=== PATIENT | female | born 1970 | race Caucasian/White ===

== ENCOUNTER → 2016-03-06 | Outpatient (CLI) | payer OTHER ==
--- NOTE | 2016-03-06 14:42 | P.PN ---
Progress Note - Text This is a 46-year-old female with cervical spondylosis and radiculopathy. The patient had cervical epidural steroid injection a few weeks ago which helped her numbness that she used to get in both hands and also helps decrease her pain however it caused headache for about 2 weeks after the procedure. The headache that she had did not have any relationship with the patient's position in the upright or lying position. The headache was like a tight sensation around her head as she states she also had soreness around the injection area for a few days. The patient right now is doing better. She seems fentanyl patch 100 g an hour every 72 hours from her family physician. She did have 14 surgeries on her lumbar spine previously. She is scheduled to have her second cervical epidural steroid injection in a few weeks and I asked her to hold her Motrin for 24 hours before the procedure. The patient does not show any drug- seeking behavior today and she denies any suicidal thoughts she also does not show any oversedation symptoms. The patient gets her opioids prescribed from her primary care physician.
[2016-03-06 14:48] VITALS: BP 140/95; PULSE 105; RESP 16; TEMP 99.1
== END | disposition home or self-care (01) ==
LOC: PNWHC3 13:40
PROVIDERS: ATTEND Anesthesiology
DX: M47.892 Other spondylosis, cervical region (principal); M54.12 Radiculopathy, cervical region; T81.89XA Other complications of procedures, not elsewhere classified, initial encounter; G44.89 Other headache syndrome
CPT/HCPCS: 99211

== ENCOUNTER 2016-03-15 08:26 | Day surgery (SDC) | payer OTHER ==
[2016-03-10 10:47] VITALS: BMI 25.8
[~2016-03-15 08:26] MED LIST: LACTATED RINGERS 1,000 ML IV SCH
[2016-03-15 08:59] VITALS: RESP 16; TEMP 98.5
[2016-03-15] MEDS ORDERED: LIDOCAINE 1% 20 ML VIAL (10MG/ML) FOR IV START INTRADERMA ONE (09:06)
[2016-03-15] MEDS ORDERED: fentaNYL (PF) 50 MCG/ML 2 ML AMP ONE (09:34)
[2016-03-15] MEDS ORDERED: IOHEXOL 180 MG/ML 1 ML ML ONE (09:34)
[2016-03-15] MEDS ORDERED: MIDAZOLAM 2 MG/2 ML VIAL ONE (09:34)
[2016-03-15] MEDS ORDERED: TRIAMCINOLONE ACETONIDE 40 MG/ML 1 ML VIAL ONE (09:34)
--- NOTE | 2016-03-15 09:53 | P.PCN ---
Date of Procedure: 03/15/16 Preoperative Diagnosis: Bilateral cervical radiculopathy Postoperative Diagnosis: Same as above Procedure(s) Performed: Cervical epidural steroid injection under fluoroscopic guidance Anesthesia: MAC Surgeon: Tiffany Zhao Pathology: none sent Condition: stable Disposition: PACU Description of Procedure: The patient was seen in preop holding area consent was obtained. She was brought into the procedure room and placed in prone position. Skin was prepped with Betadine 3 and draped in a sterile manner. Lidocaine 1% was used to numb the skin over the target point was at the C7-T1 level. I used 20-gauge 3-1/2 inch Touhy epidural needle with [id number] to air to identify the epidural space. There was positive [id number] to air at about 7 cm from skin and negative aspiration for any CSF or blood and negative paresthesia. I then injected 1 mL of Omnipaque which showed typical epidurogram on the AP view of fluoroscopy after that I injected 40 mg of Kenalog +4 MLS of preservative free normal saline to a total volume of 5 MLS in epidural space. Pt tolerated procedure well.
[2016-03-15] MEDS ORDERED: IV FLUID CONTINUATION 1,000 ML IV ONE (09:54)
--- NOTE | 2016-03-15 09:59 | FL ---
EXAMINATION TYPE: FL guided pain mgmt statistic DATE OF EXAM: 03/15/2016 9:52 AM HISTORY: Flouroscopy time 6 seconds of fluoroscopy provided. IMPRESSION: 1. Fluoroscopy time.
[2016-03-15 10:12] VITALS: BP 103/67; PULSE 81
== END 2016-03-15 10:51 | disposition home or self-care (01) ==
LOC: ORPAIN 08:26
PROVIDERS: ATTEND Anesthesiology
DX: M54.12 Radiculopathy, cervical region (principal); Z79.899 Other long term (current) drug therapy
CPT/HCPCS: 81025; 62321; J2250; J3301; Q9965; J3010

== ENCOUNTER 2016-03-24 15:29 | Emergency (ER) | payer OTHER ==
--- NOTE | 2016-03-24 15:58 | ED ---
Altered Mental Status HPI - General Chief Complaint: Weakness Stated Complaint: slurred speech/head pain Time Seen by Provider: 03/24/16 15:36 Source: patient Mode of arrival: wheelchair Limitations: no limitations - History of Present Illness Initial Comments: This patient is 46-year-old woman who presents with complaint that she has had some periods of trouble with speech. History is from both the patient and her mother who had observe episodes. They state that a couple times on Sunday and then again on Sunday night the patient had episodes in which she was having trouble with finding the proper words to express what she wanted to. Patient's mother states that the patient would start to describe something and then ended up talking about something else. The patient states she also had a feeling like someone had knocked on the left side of her skull. Patient is currently denying any pain. She states that she feels that her baseline now. She states that they had tried to arrange a point with her physician but was recommended to them that she be seen in the emergency department instead. Also on the review of systems, patient states she has had some intermittent hot and cold spells. She is denying other symptoms of infection. MD Complaint: altered mental status, confusion Onset/Timin -: days(s) Severity: moderate Consistency of Symptoms: waxing and waning Associated Symptoms: fever/chills - Related Data Home Medications Medication Instructions Recorded Confirmed Diazepam [Valium] 10 mg PO BID PRN 06/25/13 03/24/16 Digoxin [Lanoxin] 125 mcg PO DAILY 06/25/13 03/24/16 Furosemide [Lasix] 20 mg PO DAILY PRN 06/25/13 03/24/16 Gabapentin [Neurontin] 800 mg PO TID 06/25/13 03/24/16 Ibuprofen [Motrin] 800 mg PO Q8HR PRN 06/25/13 03/24/16 Lidocaine 5% Patch [Lidoderm 5% 1 patch TOPICAL DAILY PRN 06/25/13 03/24/16 Patch] Methocarbamol [Robaxin] 750 mg PO QID PRN 06/25/13 03/24/16 PARoxetine HCL [Paxil] 40 mg PO DAILY 06/25/13 03/24/16 SUMAtriptan SUCCINATE [Imitrex] 100 mg PO BID PRN 06/25/13 03/24/16 Hydrocodone/Acetaminophen 1 tab PO QID PRN 09/08/13 03/24/16 [Hydrocodone/Acetaminophen 10-325] fentaNYL [Duragesic] 100 mcg TOPICAL Q72H 09/08/13 03/24/16 Fluticasone Propionate [Flovent 220 mcg INHALATION RT-BID PRN 10/21/13 03/24/16 Hfa 110mcg] Famotidine [Pepcid] 20 mg PO BID PRN 07/06/15 03/24/16 Ferrous Sulfate [Feosol] 325 mg PO DAILY 07/06/15 03/24/16 Ipratropium-Albuterol Nebulize 3 ml INHALATION RT-QID PRN 07/06/15 03/24/16 [Duoneb 0.5 mg-3 mg/3 ml Soln] Zolpidem Tartrate [Ambien] 10 mg PO HS 07/06/15 03/24/16 Previous Rx's Medication Instructions Recorded Ondansetron Odt [Zofran ODT] 4 mg PO Q8HR PRN #15 tab 06/01/14 Amitriptyline HCl [Elavil] 25 mg PO HS #30 tablet 10/26/15 Baclofen [Lioresal] 10 mg PO QID #120 tab 10/26/15 Levofloxacin [Levaquin] 500 mg PO DAILY #7 tab 03/24/16 Allergies Allergy/AdvReac Type Severity Reaction Status Date / Time shellfish derived [Shellfish] Allergy Anaphylaxis Verified 03/24/16 16:05 Review of Systems ROS Statement: Those systems with pertinent positive or pertinent negative responses have been documented in the HPI. ROS Other: All systems not noted in ROS Statement are negative. Constitutional: Reports: as per HPI, fever, chills Eyes: Denies: eye pain, vision change ENT: Denies: throat pain, hearing loss Respiratory: Denies: cough, dyspnea Cardiovascular: Denies: chest pain, palpitations Gastrointestinal: Denies: abdominal pain, vomiting, diarrhea Genitourinary: Denies: dysuria, hematuria Musculoskeletal: Reports: back pain (Chronic back pain) Skin: Denies: rash Neurological: Reports: as per HPI, confusion. Denies: headache, weakness, numbness, paresthesias Past Medical History Past Medical History: Atrial Fibrillation, Chest Pain / Angina, Deep Vein Thrombosis (DVT), Osteoarthritis (OA), Respiratory Disorder, Supraventricular Tachycardia (SVT), Syncope Additional Past Medical History / Comment(s): chronic bronchitis. chronic back pain states all vertebrae are herniated, hx. kidney stones, permanent wheeze, born with heart defect History of Any Multi-Drug Resistant Organisms: None Reported Past Surgical History: Back Surgery, Cardiac Ablation, Cholecystectomy, Orthopedic Surgery Additional Past Surgical History / Comment(s): 14 back surgery's., geo knee arthroscopy Past Anesthesia/Blood Transfusion Reactions: No Reported Reaction Past Psychological History: Depression Smoking Status: Never smoker Past Alcohol Use History: None Reported Past Drug Use History: None Reported - Past Family History Mother Family Medical History: No Reported History Brother(s) Family Medical History: Cancer General Exam Limitations: no limitations General appearance: alert, in no apparent distress Head exam: Present: atraumatic, normocephalic Eye exam: Present: normal appearance. Absent: scleral icterus, conjunctival injection Pupils: Present: mydriatic ENT exam: Present: mucous membranes dry Neck exam: Present: normal inspection Respiratory exam: Present: normal lung sounds bilaterally. Absent: respiratory distress, wheezes, rales, rhonchi, stridor Cardiovascular Exam: Present: normal rhythm, tachycardia, normal heart sounds. Absent: systolic murmur, diastolic murmur, rubs, gallop GI/Abdominal exam: Present: soft. Absent: distended, tenderness, guarding, rebound, mass Extremities exam: Present: normal inspection, normal capillary refill. Absent: pedal edema, calf tenderness Back exam: Present: normal inspection. Absent: CVA tenderness (R), CVA tenderness (L) Neurological exam: Present: alert, oriented X3, CN II-XII intact, other ( Patient not giving reproducible effort on the neurologic exam but no obvious focal deficits.). Absent: motor sensory deficit Skin exam: Present: warm, dry, intact, normal color. Absent: rash Course Vital Signs 03/24/16 03/24/16 03/24/16 15:31 17:10 17:13 Temperature 100.9 F H 99.1 F Pulse Rate 108 H 78 Respiratory 18 18 Rate Blood Pressure 119/66 104/62 O2 Sat by Pulse 96 95 Oximetry Medical Decision Making - Lab Data Result diagrams: 03/24/16 16:14 03/24/16 16:14 Lab Results 03/24/16 03/24/16 03/24/16 Range/Units 16:14 16:14 16:14 WBC 11.0 H (3.8-10.6) k/uL RBC 3.27 L (3.80-5.40) m/uL Hgb 10.1 L (11.4-16.0) gm/dL Hct 31.5 L (34.0-46.0) % MCV 96.5 (80.0-100.0) fL MCH 31.1 (25.0-35.0) pg MCHC 32.2 (31.0-37.0) g/dL RDW 14.1 (11.5-15.5) % Plt Count 244 (150-450) k/uL Neutrophils % 80 % Lymphocytes % 7 % Monocytes % 9 % Eosinophils % 0 % Basophils % 0 % Neutrophils # 8.7 H (1.3-7.7) k/uL Lymphocytes # 0.8 L (1.0-4.8) k/uL Monocytes # 1.0 (0-1.0) k/uL Eosinophils # 0.0 (0-0.7) k/uL Basophils # 0.0 (0-0.2) k/uL Sodium 139 (137-145) mmol/L Potassium 3.6 (3.5-5.1) mmol/L Chloride 102 (98-107) mmol/L Carbon Dioxide 24 (22-30) mmol/L Anion Gap 13 mmol/L BUN 21 H (7-17) mg/dL Creatinine 0.92 (0.52-1.04) mg/dL Est GFR (MDRD) Af Amer >60 (>60 ml/min/1.73 sqM) Est GFR (MDRD) Non-Af >60 (>60 ml/min/1.73 sqM) Glucose 92 (74-99) mg/dL Plasma Lactic Acid Eduardo 0.9 (0.7-2.0) mmol/L Calcium 9.1 (8.4-10.2) mg/dL Total Bilirubin 0.6 (0.2-1.3) mg/dL AST 82 H (14-36) U/L ALT 60 H (9-52) U/L Alkaline Phosphatase 148 H (38-126) U/L Troponin I (0.000-0.034) ng/mL Total Protein 6.6 (6.3-8.2) g/dL Albumin 3.5 (3.5-5.0) g/dL Urine Color Urine Appearance (Clear) Urine pH (5.0-8.0) Ur Specific [place] (1.001-1.035) Urine Protein (Negative) Urine Glucose (UA) (Negative) Urine Ketones (Negative) Urine Blood (Negative) Urine Nitrate (Negative) Urine Bilirubin (Negative) Urine Urobilinogen (<2.0) mg/dL Ur Leukocyte Esterase (Negative) Urine RBC (0-5) /hpf Urine WBC (0-5) /hpf Urine WBC Clumps (None) /hpf Urine Bacteria (None) /hpf Influenza Type A RNA (Not Detectd) Influenza Type B (PCR) (Not Detectd) 03/24/16 03/24/16 03/24/16 Range/Units 16:14 16:14 17:41 WBC (3.8-10.6) k/uL RBC (3.80-5.40) m/uL Hgb (11.4-16.0) gm/dL Hct (34.0-46.0) % MCV (80.0-100.0) fL MCH (25.0-35.0) pg MCHC (31.0-37.0) g/dL RDW (11.5-15.5) % Plt Count (150-450) k/uL Neutrophils % % Lymphocytes % % Monocytes % % Eosinophils % % Basophils % % Neutrophils # (1.3-7.7) k/uL Lymphocytes # (1.0-4.8) k/uL Monocytes # (0-1.0) k/uL Eosinophils # (0-0.7) k/uL Basophils # (0-0.2) k/uL Sodium (137-145) mmol/L Potassium (3.5-5.1) mmol/L Chloride (98-107) mmol/L Carbon Dioxide (22-30) mmol/L Anion Gap mmol/L BUN (7-17) mg/dL Creatinine (0.52-1.04) mg/dL Est GFR (MDRD) Af Amer (>60 ml/min/1.73 sqM) Est GFR (MDRD) Non-Af (>60 ml/min/1.73 sqM) Glucose (74-99) mg/dL Plasma Lactic Acid Eduardo (0.7-2.0) mmol/L Calcium (8.4-10.2) mg/dL Total Bilirubin (0.2-1.3) mg/dL AST (14-36) U/L ALT (9-52) U/L Alkaline Phosphatase (38-126) U/L Troponin I <0.012 (0.000-0.034) ng/mL Total Protein (6.3-8.2) g/dL Albumin (3.5-5.0) g/dL Urine Color Yellow Urine Appearance Turbid H (Clear) Urine pH 6.0 (5.0-8.0) Ur Specific [place] 1.019 (1.001-1.035) Urine Protein 2+ H (Negative) Urine Glucose (UA) Negative (Negative) Urine Ketones Negative (Negative) Urine Blood Small H (Negative) Urine Nitrate Positive H (Negative) Urine Bilirubin Negative (Negative) Urine Urobilinogen 2.0 (<2.0) mg/dL Ur Leukocyte Esterase Large H (Negative) Urine RBC 42 H (0-5) /hpf Urine WBC >182 H (0-5) /hpf Urine WBC Clumps Many H (None) /hpf Urine Bacteria Many H (None) /hpf Influenza Type A RNA Not Detected (Not Detectd) Influenza Type B (PCR) Not Detected (Not Detectd) - EKG Data -: EKG Interpreted by [facility] EKG shows normal: sinus rhythm (Rate 81 bpm), axis (Normal), intervals (Normal) , QRS complexes (Normal) Rate: normal Interpretation: other (There are T inversions in leads V1 through 4. Ts inversions are present on the comparison from July 2014.) Disposition Clinical Impression: Urinary tract infection Disposition: HOME SELF-CARE Condition: Fair Instructions: Urinary Tract Infection in Women (ED) Prescriptions: Levofloxacin [Levaquin] 500 mg PO DAILY #7 tab Referrals: Andry Luna DO [Primary Care Provider] - 1-2 days
[2016-03-24 16:29] LABS: Basophils % (A) 0 %; CH 31.3; CHCM 32.6; Eosinophils % (A) 0 %; HCT 31.5 % (34.0-46.0); HDW 2.76; HGB 10.1 gm/dL (11.4-16.0); Luc # (Auto) 0.37; Luc % (Auto) 3; Lymphocytes # (A) 0.8 k/uL (1.0-4.8); Lymphocytes % (A) 7 %; MCH 31.1 pg (25.0-35.0); MCHC 32.2 g/dL (31.0-37.0); MCV 96.5 fL (80.0-100.0); Mean Platelet Volume 8.6; Monocytes % (A) 9 %; Neutrophils # (A) 8.7 k/uL (1.3-7.7); Neutrophils % (A) 80 %; RBC 3.27 m/uL (3.80-5.40); RDW 14.1 % (11.5-15.5); WBC (Perox) 11.12
[2016-03-24 16:42] LABS: ALT 60 U/L (9-52); AST 82 U/L (14-36); Alkaline Phosphatase 148 U/L (38-126); Anion Gap 13 mmol/L; Blood Urea Nitrogen 21 mg/dL (7-17); Calcium 9.1 mg/dL (8.4-10.2); Carbon Dioxide 24 mmol/L (22-30); Chloride 102 mmol/L (98-107); Glucose 92 mg/dL (74-99); Non-African American GFR(MDRD) >60 (>60 ml/min/1.73 sqM); Potassium 3.6 mmol/L (3.5-5.1); Sodium 139 mmol/L (137-145); Total Bilirubin 0.6 mg/dL (0.2-1.3); Total Protein 6.6 g/dL (6.3-8.2)
--- NOTE | 2016-03-24 16:47 | CT ---
EXAMINATION TYPE: CT brain wo con DATE OF EXAM: 03/24/2016 4:40 PM COMPARISON: Previous dated 03 April 2013 HISTORY: Slurred speech and weakness today. CT DLP: 930.2 mGycm Automated exposure control for dose reduction was used. FINDINGS: There is no acute intracranial hemorrhage, mass effect, or midline shift identified. The ventricles and sulci are within normal limits in size. The globes are intact and the visualized sinuses are joya ar. IMPRESSION: No acute intracranial hemorrhage, mass effect, or midline shift is seen.
--- NOTE | 2016-03-24 16:52 | XR ---
EXAMINATION TYPE: XR chest 1V portable DATE OF EXAM: 03/24/2016 4:46 PM COMPARISON: Prior chest x-ray 28 November 2014 HISTORY: Fever, slurred speech, dizziness TECHNIQUE: Single frontal view of the chest is obtained. FINDINGS: There is no focal air space opacity, pleural effusion, or pneumothorax seen. The cardiac silhouette size is within normal limits. There are overlying cardiac leads. The osseous structures a re intact. IMPRESSION: No acute process.
[2016-03-24] MEDS ORDERED: SODIUM CHLORIDE 0.9% 500 ML IV STA (17:21)
[2016-03-24 17:57] LABS: Appearance,Urine Turbid (Clear); Bacteria,Urine Many /hpf; Bilirubin,Urine Negative (Negative); Glucose,Urine (UA) Negative (Negative); Ketones,Urine Negative (Negative); Leukocyte Esterase,Urine Large (Negative); Nitrite,Urine Positive (Negative); Particle Count 43043; Protein,Urine 2+ (Negative); RBC,Urine 42 /hpf (0-5); Specific Gravity,Urine 1.019 (1.001-1.035); UA Billing (MACRO vs. MICRO) MICRO; WBC,Urine >182 /hpf (0-5)
[2016-03-24] MEDS ORDERED: LEVOFLOXACIN 750MG-D5W PMX 750 MG in DEXTROSE/WATER 1 150ML.BAG IVPB STA (18:02)
[2016-03-24 18:49] VITALS: PULSE 82; RESP 16
[2016-03-24 19:43] VITALS: BP 115/70; TEMP 97.9
== END 2016-03-24 19:46 | disposition home or self-care (01) ==
LOC: EC 15:29
DX: N39.0 Urinary tract infection, site not specified (principal); R41.82 Altered mental status, unspecified; Z91.013 Allergy to seafood; Z79.899 Other long term (current) drug therapy; Z79.51 Long term (current) use of inhaled steroids; Z79.891 Long term (current) use of opiate analgesic
CPT/HCPCS: 36415; 93005; 80053; 83605; 84484; 85025; 81001; 87086; 87077; 87186; 87502; 71010; 70450; 96365; 99285; J1956

== ENCOUNTER → 2016-04-12 | Outpatient (CLI) | payer OTHER ==
[2016-04-12 12:57] VITALS: BP 118/79; PULSE 112; RESP 16; TEMP 99.1
--- NOTE | 2016-04-12 13:19 | P.PN ---
Progress Note - Text Patient returns for followup for chronic neck and back pain with radiation to arms and legs respectively. Patient recently underwent cervical NICA x 2, which provided some relief for 2-3 weeks' interval apiece. Patient continues on fentanyl patch, baclofen, and amitriptyline medications for pain with good relief. Patient continues to complain of neck and arm numbness/tingling/ shooting pains but these are improved. Patient denies adverse drug effects from medications. Today, pt denies new-onset weakness, bowel/bladder incontinence, or any other signs or symptoms of cauda equina syndrome. There are no signs of acute intoxication, and no indications of medication diversion or overuse. Patient does endorse long-standing weakness in bilateral upper extremities and occasional involuntary twitching in her left thumb. In addition to above, 13-point review of systems is also negative for chest pain , shortness of breath, changes in vision, changes in hearing, new onset weakness , abdominal pain, diarrhea, extreme fatigue, malaise, fever, skin changes, homicidal or suicidal ideation, or bowel or bladder incontinence. Vital Signs: Reviewed in EMR Gen: WDWN, AAOx3, NAD HEENT: NCAT, EOMI, hearing grossly normal Pulm: resp unlabored Abd: soft, NT, ND Neck: supple, trachea midline ROM in flexion cervical spine: reduced ROM in extension cervical spine: reduced Cervical paravertebral tenderness: + Cervical Facet tenderness: ++ R, + L side Spurling's: + bilateral, R > L Upper extremity: decreased inventory control/shipping receiving strength bilaterally Neuro: CN II-XII grossly intact, muscle strength lower extremities reduced 3+/ 5 bilateral LEs Imaging: Reviewed in EMR Assessment: 1. PLPS lumbar 2. cervical radiculopathy 3. cervical intervertebral herniated discs Plan: 1. Explanation: Opioid and psychological risk scores were reviewed. Diagnoses , prognoses, and multiple treatment options including but not limited to physical therapy, interventional therapies, adjuvant medical therapies, narcotic medication therapies, and surgery were discussed with the patient and all questions were answered to the patient's satisfaction. 2. Opioid agreement: no narcotics prescribed 3. Counseling: The patient was counseled extensively on BODY MASS INDEX, EXERCISE. Specifically, the patient was instructed regarding the importance of obesity and exercise in the context of both chronic pain and overall health. 4. Procedures: cervical NICA #3 5. Consultations: None 6. Investigations: None 7. Medications: Baclofen increased to 15 mg TID (#150) with two refills and Elavil 25 mg x 3 months 8. Disposition: f/u for PQRS measures: 1-Patient's medications are documented in the chart. 2-Tobacco use is negative, counseling NOT given 3-Patient has not had a pneumococcal vaccine. 4-Advanced care planning discussed, patient unable to give. 5-Opioid contract NOT signed with the patient as we do not prescribe medications. 6-Pain positive, follow-up visit or procedure scheduled 7-Patient's blood pressure measured and documented, and within normal limits. 8-Patient's weight was measured, and body mass index within the normal limits. 9-Patient WAS NOT identified as an unhealthy alcohol user.
== END | disposition home or self-care (01) ==
LOC: PNWHC3 12:33
PROVIDERS: ATTEND Anesthesiology
DX: G89.29 Other chronic pain (principal); M54.12 Radiculopathy, cervical region; M50.20 Other cervical disc displacement, unspecified cervical region; Z71.3 Dietary counseling and surveillance; Z98.890 Other specified postprocedural states; Z79.891 Long term (current) use of opiate analgesic; Z79.899 Other long term (current) drug therapy
CPT/HCPCS: 99211

== ENCOUNTER → 2016-04-25 | Outpatient (CLI) | payer OTHER ==
--- NOTE | 2016-04-25 11:01 | XR ---
EXAMINATION TYPE: XR Hip RT and AP Pelvis DATE OF EXAM: 04/25/2016 10:56 AM COMPARISON: NONE HISTORY: Right hip pain TECHNIQUE: A single AP view of the pelvis is obtained. Two views of the right hip are obtained. FINDINGS: There is no acute fracture/dislocation evident in the pelvis. The hip and sacroiliac join ts appear symmetric and unremarkable. The overlying soft tissue appears unremarkable. Two views of right hip show no acute fracture or dislocation. No focal lytic or sclerotic lesion see n in the proximal right femur. The overlying soft tissue is unremarkable. IMPRESSION: There is no acute fracture or dislocation in the pelvis or right hip. If clinical suspic ion is high obtained CT scan.
--- NOTE | 2016-04-25 11:03 | XR ---
EXAM TYPE: LUMBAR SPINE X RAY SERIES COMPARISON: NONE HISTORY: Pain TECHNIQUE: 3 views are submitted. FINDINGS: Alignment is anatomic. The pedicles are intact. The transverse processes are intact. There is no s pondylolysis or spondylolisthesis. Slight dextrocurvature of the spine. Surgical clips gallbladder f lazaro. Severe degenerative disc disease L4-5 and L5-S1 with arthropathy. Multilevel moderate degenerat bharath disc disease at remaining levels. IMPRESSION: 1. Multilevel severe degenerative disc disease correlate with MRI as clinically warranted.
== END ==
LOC: RADXRMAIN 10:09
PROVIDERS: ATTEND Nurse Practitioner Family
DX: M51.36 Other intervertebral disc degeneration, lumbar region (principal); W19.XXXA Unspecified fall, initial encounter
CPT/HCPCS: 72100; 73502

== ENCOUNTER 2016-05-01 16:14 | Emergency (ER) | payer OTHER ==
[2016-05-01] MEDS ORDERED: HYDROmorphone 1 MG/ML 1 ML SYRINGE IM STA (16:45)
[2016-05-01] MEDS ORDERED: ORPHENADRINE 30 MG/ML 2 ML VIAL IM STA (16:45)
--- NOTE | 2016-05-01 17:00 | ED ---
Back Pain HPI - General Chief Complaint: Back Pain/Injury Stated Complaint: Back Pain Time Seen by Provider: 05/01/16 16:25 Source: patient, RN notes reviewed Limitations: physical limitation - History of Present Illness Initial Comments: 46-year-old female presents to the emergency department with a chief complaint of back pain. Patient suffers from chronic back pain had this back pain for over 30 years. Patient states that 2 weeks ago she developed a flareup in her back pain that led her to fall to the ground. Patient states that she saw her doctor after this they have an x-ray that was negative. Patient states that on steroids and she finished the steroids today however she continues to have the back pain. Patient states excruciating only for low back up into her neck. Patient states she has had multiple back surgeries her back surgeon is at [facility]. Patient states that she sees Dr. Dixon for injections. Patient states she takes [place] as well as a fentanyl patch for her back pain but it slowed up to the point that she just is having pain with most movement. Patient denies any loss of bowel or bladder function or any saddle anesthesia with this. Patient states that the back pain just is not improving and she just did not DO so she came here. Patient denies any nausea vomiting this. Denies any changes in urination. Patient states that it looked like her typical back pain flareup. Patient states that she is not currently having any other symptoms with this.Patient denies any recent fever, chills, shortness of breath, chest pain, abdominal pain, nausea vomiting, numbness or tingling, dysuria or hematuria, constipation or diarrhea, headaches or visual changes, or any other current symptoms. - Related Data Home Medications Medication Instructions Recorded Confirmed Diazepam [Valium] 10 mg PO BID PRN 06/25/13 04/12/16 Digoxin [Lanoxin] 125 mcg PO DAILY 06/25/13 04/12/16 Furosemide [Lasix] 20 mg PO DAILY PRN 06/25/13 04/12/16 Gabapentin [Neurontin] 800 mg PO TID 06/25/13 04/12/16 Ibuprofen [Motrin] 800 mg PO Q8HR PRN 06/25/13 04/12/16 Lidocaine 5% Patch [Lidoderm 5% 1 patch TOPICAL DAILY PRN 06/25/13 04/12/16 Patch] Methocarbamol [Robaxin] 750 mg PO QID PRN 06/25/13 04/12/16 PARoxetine HCL [Paxil] 40 mg PO DAILY 06/25/13 04/12/16 SUMAtriptan SUCCINATE [Imitrex] 100 mg PO BID PRN 06/25/13 04/12/16 Hydrocodone/Acetaminophen 1 tab PO QID PRN 09/08/13 04/12/16 [Hydrocodone/Acetaminophen 10-325] fentaNYL [Duragesic] 100 mcg TOPICAL Q72H 09/08/13 04/12/16 Fluticasone Propionate [Flovent 220 mcg INHALATION RT-BID PRN 10/21/13 04/12/16 Hfa 110mcg] Famotidine [Pepcid] 20 mg PO BID PRN 07/06/15 04/12/16 Ferrous Sulfate [Feosol] 325 mg PO DAILY 07/06/15 04/12/16 Ipratropium-Albuterol Nebulize 3 ml INHALATION RT-QID PRN 07/06/15 04/12/16 [Duoneb 0.5 mg-3 mg/3 ml Soln] Zolpidem Tartrate [Ambien] 10 mg PO HS 07/06/15 04/12/16 Previous Rx's Medication Instructions Recorded Ondansetron Odt [Zofran ODT] 4 mg PO Q8HR PRN #15 tab 06/01/14 Amitriptyline HCl [Elavil] 25 mg PO HS #30 tablet 04/12/16 Baclofen [Lioresal] 20 mg PO TID #90 tab 04/12/16 Allergies Allergy/AdvReac Type Severity Reaction Status Date / Time shellfish derived [Shellfish] Allergy Anaphylaxis Verified 05/01/16 16:40 Review of Systems ROS Statement: Those systems with pertinent positive or pertinent negative responses have been documented in the HPI. ROS Other: All systems not noted in ROS Statement are negative. Past Medical History Past Medical History: Atrial Fibrillation, Chest Pain / Angina, Deep Vein Thrombosis (DVT), Osteoarthritis (OA), Respiratory Disorder, Supraventricular Tachycardia (SVT), Syncope Additional Past Medical History / Comment(s): chronic bronchitis. chronic back pain states all vertebrae are herniated, hx. kidney stones, permanent wheeze, born with heart defect History of Any Multi-Drug Resistant Organisms: None Reported Past Surgical History: Back Surgery, Cardiac Ablation, Cholecystectomy, Orthopedic Surgery Additional Past Surgical History / Comment(s): 14 back surgery's., geo knee arthroscopy Past Anesthesia/Blood Transfusion Reactions: No Reported Reaction Past Psychological History: Depression Smoking Status: Never smoker Past Alcohol Use History: None Reported Past Drug Use History: None Reported - Past Family History Mother Family Medical History: No Reported History Brother(s) Family Medical History: Cancer General Exam Limitations: physical limitation General appearance: alert, in no apparent distress Head exam: Present: atraumatic, normocephalic, normal inspection Neck exam: Present: normal inspection. Absent: tenderness, meningismus, lymphadenopathy Respiratory exam: Present: normal lung sounds bilaterally Cardiovascular Exam: Present: regular rate, normal rhythm, normal heart sounds. Absent: systolic murmur, diastolic murmur, rubs, gallop, clicks GI/Abdominal exam: Present: soft, normal bowel sounds. Absent: distended, tenderness, guarding, rebound, rigid Back exam: Present: normal inspection, full ROM, tenderness (2 midline). Absent : CVA tenderness (R), CVA tenderness (L) Neurological exam: Present: alert, oriented X3, CN II-XII intact. Absent: motor sensory deficit Psychiatric exam: Present: normal affect, normal mood Skin exam: Present: warm, dry, intact, normal color. Absent: rash Course Vital Signs 05/01/16 05/01/16 16:40 18:00 Temperature 98.4 F Pulse Rate 97 69 Respiratory 17 16 Rate Blood Pressure 142/73 116/64 O2 Sat by Pulse 98 97 Oximetry - Reevaluation(s) Reevaluation #1: 05/01/16 18:57 At this time she states that she is feeling better and she is ready to go home. Medical Decision Making - Medical Decision Making 46-year-old female presents emergency Department chief complaint of back pain. This patient did not have much improvement after the first injection. A second injection was given patient does have improvement. This patient will be discharged home. We discussed continued at home pain medication follow-up with her doctor. We discussed return for some patient's family's questions. Patient was offered admission harsh states she does not want that she left home. He stated he understood and agreed and plan. This and they will be discharged home. Disposition Clinical Impression: Acute exacerbation of chronic low back pain Disposition: HOME SELF-CARE Condition: Stable Instructions: Chronic Back Pain (ED) Additional Instructions: Please use medication as discussed. Please follow up with family doctor if symptoms have not improved over the next two days. Please return to the emergency room if your symptoms increase or worsen or for any other concerns. Referrals: Andry Luna DO [Primary Care Provider] - 1-2 days Time of Disposition: 18:57
[2016-05-01 18:03] VITALS: RESP 16
[2016-05-01] MEDS ORDERED: HYDROmorphone 2 MG/ML 1 ML SYRINGE IM STA (18:13)
[2016-05-01 19:09] VITALS: BP 122/62; PULSE 72; TEMP 98.7
== END 2016-05-01 19:07 | disposition home or self-care (01) ==
LOC: EC 16:14
DX: G89.29 Other chronic pain (principal); M54.5 Low back pain; I48.91 Unspecified atrial fibrillation; F32.9 Major depressive disorder, single episode, unspecified; M19.90 Unspecified osteoarthritis, unspecified site; Z79.891 Long term (current) use of opiate analgesic; Z79.899 Other long term (current) drug therapy; Z91.013 Allergy to seafood
CPT/HCPCS: 99283; 96372 ×3; J1170 ×2; J2360

== ENCOUNTER 2016-05-22 07:56 | Day surgery (SDC) | payer OTHER ==
[2016-05-18 15:20] VITALS: BMI 25.8
[2016-05-22 08:35] VITALS: RESP 16; TEMP 97.3
[2016-05-22] MEDS ORDERED: LIDOCAINE 1% 20 ML VIAL (10MG/ML) FOR IV START INTRADERMA ONE (08:45)
[2016-05-22] MEDS ORDERED: LACTATED RINGERS 1,000 ML IV ONE (08:47)
[2016-05-22] MEDS ORDERED: IOHEXOL 180 MG/ML 1 ML ML ONE (09:16)
[2016-05-22] MEDS ORDERED: DEXAMETHASONE SOD PHOS (MDV) 100 MG/10 ML VIAL ONE (09:16)
[2016-05-22] MEDS ORDERED: fentaNYL (PF) 50 MCG/ML 2 ML AMP ONE (09:16)
[2016-05-22] MEDS ORDERED: MIDAZOLAM 2 MG/2 ML VIAL ONE (09:16)
[2016-05-22] MEDS ORDERED: IV FLUID CONTINUATION 1,000 ML IV ONE (09:47)
[2016-05-22] MEDS ORDERED: LACTATED RINGERS 1,000 ML IV SCH (10:30)
[2016-05-22 10:33] VITALS: BP 115/75; PULSE 63
--- NOTE | 2016-05-22 10:57 | FL ---
Fluoroscopy HISTORY: Pain 16 seconds fluoroscopy time supplied to the referring clinician. 3 intraoperative C-arm images docum ent the procedure. See dictated report from anesthesia.
--- NOTE | 2016-05-22 11:12 | P.PCN ---
Date of Procedure: 05/22/16 Surgeon: Rolando Trent Pathology: none sent Condition: stable Disposition: PACU Description of Procedure: PREOPERATIVE DIAGNOSIS: Cervical radiculopathy. POSTOPERATIVE DIAGNOSIS: Cervical radiculopathy. PROCEDURE 1. Cervical epidural steroid injection under fluoroscopic guidance, C7-T1 level. 2. Cervical epidurogram. ANESTHESIA: Local anesthesia with 1% lidocaine and IV sedation with versed/ fentanyl. EBL: Minimal PROCEDURE INDICATION: The patient with neck pain and radiculitis unresponsive to conservative treatment consents for procedure, #3 in series today. No use of blood thinners. PROCEDURE DESCRIPTION / TECHNIQUE: The patient was seen and identified in the preoperative area. Risks, benefits, complications, and alternatives were discussed with the patient (including but not limited to incomplete pain relief, bleeding, infection, nerve damage, and allergies to medications), the patient agreed to proceed with the procedure and signed the consent after all questions were answered. Patient was taken to the OR and time out was completed to verify proper patient , position, laterality of pain, and allergies. Pt was placed in the prone position. A pillow was placed under the patients chest to increase the cervical interlaminar space. The cervical area was prepped and draped in the usual sterile fashion. Critical pause was taken. Vital signs were closely monitored during the procedure. Conscious sedation was used during the procedure to decrease patients anxiety. Using anterior-posterior fluoroscopy, the C7-T1 interlaminar space was identified and the skin over this site was marked and then infiltrated with 1% lidocaine subcutaneously in a paramedian fashion. Subsequently, a 20-gauge 3-1/2 -inch Tuohy epidural needle was inserted and advanced toward the epidural space by means of the loss of resistance technique and guided by AP and lateral fluoroscopy. After negative aspiration for blood or CSF and in the absence of paresthesias, the correct needle position in the epidural space was verified with the injection of 1 mL of the water soluble contrast dye Omnipaque-180 and observing an excellent epidurogram with the epidural spread of the dye. Again after negative aspiration, a 4 ml mixture containing 20 mg of Decadron and 2 ml of preservative free Normal Saline solution was injected and a washout of epidurogram was seen. Needle was withdrawn intact, skin was cleansed, and bandages were applied. COMPLICATIONS: None COMMENTS: DISPOSITION / PLANS: The patient was placed in a supine position and transferred to the recovery area in a stable condition for observation. There was no evidence of upper extremity motor or sensory deficit after the procedure. Patient was discharged from the recovery room after meeting discharge criteria. Home discharge instructions were given to the patient by the staff. The patient was reexamined prior to discharge and there were no issues. The patient will schedule a follow up in the clinic in 2-4 weeks.
== END 2016-05-22 10:46 | disposition home or self-care (01) ==
LOC: ORPAIN 07:56
PROVIDERS: ATTEND Anesthesiology
DX: M54.12 Radiculopathy, cervical region (principal)
CPT/HCPCS: 81025; 62321; 99152; J2250; Q9965; J3010; J1100

== ENCOUNTER → 2016-07-05 | Outpatient (CLI) | payer OTHER ==
[2016-07-05 14:33] VITALS: BP 120/80; PULSE 98; RESP 18; TEMP 100.4
--- NOTE | 2016-07-06 11:07 | P.PN ---
Subjective This is follow-up visit for this patient with a history of severe and chronic low back pain secondary to lumbar degenerative disc disease, failed back surgery syndrome and lumbar area, And neck pain with radiation to the upper extremity associated with numbness and tingling sensation, secondary to multilevel cervical spinal stenosis,, we did interventional pain management injection,, cervical epidural steroid injections 3 , she continued to have severe neck pain and muscle spasm in the upper and lower extremity, associated with numbness and tingling sensation, and is currently on pain medications 1-fentanyl patch 100 g every 72 hours (from PCP ) 2-[place] 10/325 every 6 hours (from PCP ) 3-Robaxin 750 every 6 hours (from PCP ) 4-Neurontin 800 mg 3 times a day (from PCP). 5-Valium 10 mg twice a day. 6 ambient 10 mg daily at bedtime (PCP 7. Amitriptyline 25 mg daily at bedtime 8-Motrin 800 mg 3 times a day Patient denies any side effects of the medication, denies excessive drowsiness or sleepiness, denies suicidal ideation, and reports that the current pain medication is NOT helping To control the pain and improve activity of daily living . Patient denies any motor or sensory deficit, denies change in bowel movement or urination, patient denies any fever or night sweats and patient here for follow-up visit and medication refill,, patient reported that she continues to have severe muscle spasm in the cervical and lumbar area and the lower extremity, and is preventing her from sleeping at night, Objective - Vital Signs Vital signs: Vital Signs Temp 100.4 F H 07/05/16 14:22 Pulse 98 07/05/16 14:22 Resp 18 07/05/16 14:22 BP 120/80 07/05/16 14:22 Pulse Ox 96 07/05/16 14:22 Intake & Output 07/05/16 07/06/16 07/06/16 18:59 06:59 18:59 Weight 77.111 kg - Exam Physical Examinations : 1-Constitutiona : Cooperative , not in acute distress . 2-HEENT : nech ; supple , no Lymphadenopathy , normal thyroid size . eyes : no ptosis , no icterus, no photophobia . ENT : normal of hearing , normal oropharynx , no Thrush . 3- Respiratory : Chest clear to auscultations Bilaterally , no wheezing , no Rhonchi . 4- Cardiovascular : regular rate and rhythem , S1 , S2 , no S3 , no S4. 5- Gastrointestinal : abdomen soft no tenderness , bowel sounds positive all four quadrents , no organomegally . 6- Genitourinary : Defferred . 7- neurologic : Cranial nerve II to XII intact , no focal neurological deffecit . 8-psychatric : alert , oriented X 3 , appropriate affect , intact judgment and insight . 9-Lymphatic : no Lymphadenopathy . 10- musculoskeltal : cervical spine = motor stregnth in the deltoid and biceps, motor stregnth biceps and the wrist extensors (C6) . motor stregnth in the triceps muscle . deep tendon reflexes normal at the biceps , l normal at Brachioradialis normal at the triceps , positive cervical facet loading test . She localized tenderness over the cervical paravertebral muscles , exams of the Lumber spine = normal moter stegnth lower extremities ,thigh and legs .5/5 deep tendon reflexes : normal Knee Jerk , normal ankle Jerk . positive lumber facet Loading Test strait leg raising test positive at 30 degree , RT ,LT , Fabere test positive RT and positive LT . Sever tenderness over the lumbar paravertebral muscles - Constitutional Constitutional Comment(s): MRI of the cervical spine showed C3/C4 5/C5-C6/C6 7 disc herniation, cervical foraminal stenosis Assessment and Plan Plan: Assessment and plan = - Chronic low back pain secondary to lumbar degenerative disc disease , lumbar spondylosis , failed back surgery syndrome lumbar area -Cervical radiculopathy, cervical spinal stenosis , cervical disc herniation - diagnoses, prognosis, and treatment options including but not limited to physical therapy, surgical interventions, interventional therapies and medication management including narcotics and adjuvant medication were discussed with the patient and all questions answered to the patient's satisfaction. Discussed with the patient option of referring him to have surgical interventions on her cervical spine and she preferred not to have surgery, she already had lumbar laminectomy surgery without significant improvement in her pain -medication refile =1-amitriptyline 25 mg daily at bedtime dispense 30 with 2 refills 2-baclofen 10 mg every morning 10 mg every p.m. and 2 tablets daily at bedtime dispense 120 with 2 refill 3-Valium 10 mg twice a day when necessary dispensed 30 with 2 refill -procedure=none Time with Patient: Less than 30
== END | disposition home or self-care (01) ==
LOC: PNWHC3 13:30
PROVIDERS: ATTEND Specialist
DX: M51.36 Other intervertebral disc degeneration, lumbar region (principal); M46.96 Unspecified inflammatory spondylopathy, lumbar region; M48.02 Spinal stenosis, cervical region; M50.10 Cervical disc disorder with radiculopathy, unspecified cervical region; G89.29 Other chronic pain; M96.1 Postlaminectomy syndrome, not elsewhere classified; Z79.899 Other long term (current) drug therapy; Z79.1 Long term (current) use of non-steroidal anti-inflammatories (NSAID)
CPT/HCPCS: 99211

== ENCOUNTER 2016-10-04 12:43 | Emergency (ER) | payer OTHER ==
[2016-10-04 12:46] VITALS: BP 114/57; PULSE 87; RESP 18; TEMP 100
[2016-10-04] MEDS ORDERED: KETOROLAC 60 MG/2 ML VIAL IM STA (12:57)
[2016-10-04] MEDS ORDERED: HYDROmorphone 1 MG/ML 1 ML SYRINGE IM STA (12:57)
[2016-10-04] MEDS ORDERED: ORPHENADRINE 30 MG/ML 2 ML VIAL IM STA (12:57)
--- NOTE | 2016-10-04 13:00 | ED ---
Back Pain HPI - General Stated Complaint: Back Pain Source: patient Limitations: no limitations - History of Present Illness Initial Comments: 46-year-old female patient presents to emergency department today for evaluation for an acute exacerbation of chronic lower back pain. Patient has a past medical history significant for bulging disks, degenerative disc disease, and nerve pain in her lower extremities. Patient states that she has had multiple lower back surgeries in the past. Patient states that she has pain every day in her lower back, states that it radiates down her legs, and that she has paresthesia to the lower extremities as well. Patient states that since Sunday she has had increased pain, has had a lot of difficulty moving around, and performing her activities of daily living. She denies any injuries causing increased to the pain. Patient states that the pain is severe, 10 out of 10 on the pain scale this time. Patient states that the pain in her back is sharp with any movement, dull continuously, and has some burning pain in her low back that radiates down to her legs. Patient states that she did take her [place] 10/325 this morning and has a 100 g Duragesic patch in place. Patient states that these medications are not helping. Patient denies any loss of bowel or bladder control. She denies any saddle anesthesia. Denies any new numbness or weakness. She denies any fever, chills, cough, congestion, nasal drainage, sore throat, chest pain, shortness of breath, abdominal pain, nausea, vomiting, dysuria, hematuria, urinary urgency or urinary frequency. Patient denies any difficulties with bowel movements. 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 - Related Data Home Medications Medication Instructions Recorded Confirmed Diazepam [Valium] 10 mg PO BID PRN 06/25/13 07/05/16 Digoxin [Lanoxin] 125 mcg PO DAILY 06/25/13 07/05/16 Furosemide [Lasix] 20 mg PO DAILY PRN 06/25/13 07/05/16 Gabapentin [Neurontin] 800 mg PO TID 06/25/13 07/05/16 Ibuprofen [Motrin] 800 mg PO Q8HR PRN 06/25/13 07/05/16 Lidocaine 5% Patch [Lidoderm 5% 1 patch TOPICAL DAILY PRN 06/25/13 07/05/16 Patch] PARoxetine HCL [Paxil] 40 mg PO DAILY 06/25/13 07/05/16 SUMAtriptan SUCCINATE [Imitrex] 100 mg PO BID PRN 06/25/13 07/05/16 Hydrocodone/Acetaminophen 1 tab PO QID PRN 09/08/13 07/05/16 [Hydrocodone/Acetaminophen 10-325] fentaNYL [Duragesic] 100 mcg TOPICAL Q72H 09/08/13 07/05/16 Fluticasone Propionate [Flovent 220 mcg INHALATION RT-BID PRN 10/21/13 07/05/16 Hfa 110mcg] Famotidine [Pepcid] 20 mg PO BID PRN 07/06/15 07/05/16 Ferrous Sulfate [Feosol] 325 mg PO DAILY 07/06/15 07/05/16 Ipratropium-Albuterol Nebulize 3 ml INHALATION RT-QID PRN 07/06/15 07/05/16 [Duoneb 0.5 mg-3 mg/3 ml Soln] Zolpidem Tartrate [Ambien] 10 mg PO HS 07/06/15 07/05/16 Baclofen [Lioresal] 10 mg PO TID 07/06/16 07/06/16 Previous Rx's Medication Instructions Recorded Ondansetron Odt [Zofran ODT] 4 mg PO Q8HR PRN #15 tab 06/01/14 Amitriptyline HCl [Elavil] 25 mg PO HS #30 tablet 04/12/16 Dexamethasone 0.75 mg PO DAILY #12 tab 08/01/16 Allergies Allergy/AdvReac Type Severity Reaction Status Date / Time shellfish derived [Shellfish] Allergy Anaphylaxis Verified 10/04/16 12:46 Review of Systems ROS Statement: Those systems with pertinent positive or pertinent negative responses have been documented in the HPI. ROS Other: All systems not noted in ROS Statement are negative. Past Medical History Past Medical History: Atrial Fibrillation, Chest Pain / Angina, Deep Vein Thrombosis (DVT), Osteoarthritis (OA), Respiratory Disorder, Supraventricular Tachycardia (SVT), Syncope Additional Past Medical History / Comment(s): chronic bronchitis. chronic back pain states all vertebrae are herniated, hx. kidney stones, permanent wheeze, born with heart defect History of Any Multi-Drug Resistant Organisms: None Reported Past Surgical History: Back Surgery, Cardiac Ablation, Cholecystectomy, Orthopedic Surgery Additional Past Surgical History / Comment(s): 14 back surgery's., geo knee arthroscopy, PAIN CLINIC PROCEDURES Past Anesthesia/Blood Transfusion Reactions: No Reported Reaction Past Psychological History: Depression Smoking Status: Never smoker Past Alcohol Use History: None Reported Past Drug Use History: None Reported - Past Family History Mother Family Medical History: No Reported History Brother(s) Family Medical History: Cancer General Exam Limitations: no limitations General appearance: alert, in no apparent distress Eye exam: Present: normal appearance, PERRL, EOMI. Absent: scleral icterus, conjunctival injection, periorbital swelling ENT exam: Present: normal exam, normal oropharynx, mucous membranes moist Neck exam: Present: normal inspection. Absent: tenderness, meningismus, lymphadenopathy Respiratory exam: Present: normal lung sounds bilaterally. Absent: respiratory distress, wheezes, rales, rhonchi, stridor Cardiovascular Exam: Present: regular rate, normal rhythm, normal heart sounds. Absent: systolic murmur, diastolic murmur, rubs, gallop, clicks GI/Abdominal exam: Present: soft, normal bowel sounds. Absent: distended, tenderness, guarding, rebound, rigid Extremities exam: Present: normal inspection, full ROM, normal capillary refill. Absent: tenderness, pedal edema, joint swelling, calf tenderness Back exam: Present: normal inspection, other (Positive straight leg test bilateral). Absent: tenderness, vertebral tenderness Neurological exam: Present: alert, oriented X3, CN II-XII intact Psychiatric exam: Present: normal affect, normal mood Skin exam: Present: warm, dry, intact, normal color. Absent: rash Course Vital Signs 10/04/16 12:45 Temperature 100.0 F H Pulse Rate 87 Respiratory 18 Rate Blood Pressure 114/57 O2 Sat by Pulse 97 Oximetry Medical Decision Making - Medical Decision Making 46-year-old female patient sent to emergency department today for evaluation of an acute exacerbation of chronic low back pain. Patient states that she has no new symptoms other than her pain being much worse. Patient does get pain medications and pain management with Dr. Dixon, as well as another physician out of [facility]. Patient states that she does have pain medication at home. Patient will be given IM injections of Dilaudid, Toradol, and Norflex here in the department. She'll be sent home to make an appointment and follow- up with her painter and decorator apprentice for any further needs. Patient instructed to follow-up with her primary care physician for recheck in 1-2 days. Instructed to return here immediately for any new, worsening, or concerning symptoms. Patient verbalizes understanding and agrees to this plan. Disposition Clinical Impression: Chronic back pain, Lumbar radiculopathy Disposition: HOME SELF-CARE Condition: Good Instructions: Lumbar Radiculopathy (ED), Chronic Back Pain (ED) Additional Instructions: Continue home pain medications as directed. Follow-up with painter and decorator apprentice for further evaluation. Follow up with her primary care physician for recheck in 1-2 days. Return here immediately for any new, worsening, or concerning symptoms. Referrals: Andry Luna DO [Primary Care Provider] - 1-2 days Ava Dixon MD [STAFF PHYSICIAN] - 1-2 days Time of Disposition: 12:59
== END 2016-10-04 13:45 | disposition home or self-care (01) ==
LOC: EC 12:43
DX: M54.16 Radiculopathy, lumbar region (principal); G89.29 Other chronic pain; M51.36 Other intervertebral disc degeneration, lumbar region; I48.91 Unspecified atrial fibrillation; F32.9 Major depressive disorder, single episode, unspecified; Z86.79 Personal history of other diseases of the circulatory system; Z98.890 Other specified postprocedural states; Z86.718 Personal history of other venous thrombosis and embolism; Z79.891 Long term (current) use of opiate analgesic; Z79.899 Other long term (current) drug therapy; Z91.013 Allergy to seafood
CPT/HCPCS: 99283; 96372 ×3; J2360; J1885; J1170

== ENCOUNTER 2016-10-08 21:34 | Emergency (ER) | payer OTHER ==
[2016-10-08 21:41] VITALS: TEMP 99.2
[2016-10-08] MEDS ORDERED: KETOROLAC 30 MG/ML 1 ML VIAL IM STA (22:05)
[2016-10-08] MEDS ORDERED: HYDROmorphone 1 MG/ML 1 ML SYRINGE IM STA ×2 (22:05→23:10)
[2016-10-08] MEDS ORDERED: DIAZEPAM 5 MG/ML 2 ML SYRINGE IM ONE (22:05)
[2016-10-08] MEDS ORDERED: DEXAMETHASONE SOD PHOSPHATE 10 MG/ML 1 ML VIAL IM STA (22:06)
[2016-10-08 23:28] VITALS: PULSE 68
--- NOTE | 2016-10-08 23:28 | ED ---
General Adult HPI - General Chief complaint: Back Pain/Injury Stated complaint: Back Pain Time Seen by Provider: 10/08/16 21:54 Source: patient, family, RN notes reviewed Mode of arrival: wheelchair Limitations: no limitations - History of Present Illness Initial comments: 46-year-old female with history of chronic back pain presents with chief complaint of lower back paper is no history of trauma. Patient has been taking her home medications with minimal relief. She does see a pain specialist as an outpatient. His had multiple back surgeries most recently 7 years ago. She has been dealing with pain for many years. Patient states her pain is dull in nature, does primarily stayed in her low back although there is some shooting pain in her lower extremities. None of her pain complaints are new. There are chronic in nature. She denies any bowel or bladder issues. Denies any saddle anesthesia. Denies fever or chills. Denies abdominal pain. Denies nausea vomiting or diarrhea. Denies chest pain or shortness of breath. - Related Data Home Medications Medication Instructions Recorded Confirmed Digoxin [Lanoxin] 125 mcg PO DAILY 06/25/13 10/08/16 Gabapentin [Neurontin] 800 mg PO TID 06/25/13 10/08/16 Ibuprofen [Motrin] 800 mg PO Q8HR PRN 06/25/13 10/08/16 PARoxetine HCL [Paxil] 40 mg PO DAILY 06/25/13 10/08/16 Hydrocodone/Acetaminophen 1 tab PO QID PRN 09/08/13 10/08/16 [Hydrocodone/Acetaminophen 10-325] fentaNYL [Duragesic] 1 patch TOPICAL Q72H 09/08/13 10/08/16 Ipratropium-Albuterol Nebulize 3 ml INHALATION RT-QID PRN 07/06/15 10/08/16 [Duoneb 0.5 mg-3 mg/3 ml Soln] Zolpidem Tartrate [Ambien] 10 mg PO HS 07/06/15 10/08/16 Albuterol Inhaler [Ventolin Hfa 1 - 2 puff INHALATION RT-Q6H PRN 10/08/16 Inhaler] Fenofibrate 160 mg PO DAILY 10/08/16 10/08/16 Levothyroxine Sodium [Synthroid] 25 mcg PO DAILY 10/08/16 10/08/16 Methocarbamol [Robaxin-750] 750 mg PO QID 10/08/16 10/08/16 Previous Rx's Medication Instructions Recorded methylPREDNISolone Dose Pack 4 mg PO DIRECTED #21 package 10/08/16 [Medrol Dose Pack] Allergies Allergy/AdvReac Type Severity Reaction Status Date / Time shellfish derived [Shellfish] Allergy Anaphylaxis Verified 10/08/16 22:56 Review of Systems ROS Statement: Those systems with pertinent positive or pertinent negative responses have been documented in the HPI. ROS Other: All systems not noted in ROS Statement are negative. Past Medical History Past Medical History: Atrial Fibrillation, Chest Pain / Angina, Deep Vein Thrombosis (DVT), Osteoarthritis (OA), Respiratory Disorder, Supraventricular Tachycardia (SVT), Syncope Additional Past Medical History / Comment(s): chronic bronchitis. chronic back pain states all vertebrae are herniated, hx. kidney stones, permanent wheeze, born with heart defect History of Any Multi-Drug Resistant Organisms: None Reported Past Surgical History: Back Surgery, Cardiac Ablation, Cholecystectomy, Orthopedic Surgery Additional Past Surgical History / Comment(s): 14 back surgery's., geo knee arthroscopy, PAIN CLINIC PROCEDURES Past Anesthesia/Blood Transfusion Reactions: No Reported Reaction Past Psychological History: Depression Smoking Status: Never smoker Past Alcohol Use History: None Reported Past Drug Use History: None Reported - Past Family History Mother Family Medical History: No Reported History Brother(s) Family Medical History: Cancer General Exam Limitations: no limitations General appearance: alert, in distress Head exam: Present: atraumatic, normocephalic Eye exam: Present: normal appearance, PERRL ENT exam: Present: normal exam, mucous membranes moist Neck exam: Present: normal inspection, full ROM. Absent: tenderness Respiratory exam: Present: normal lung sounds bilaterally. Absent: respiratory distress Cardiovascular Exam: Present: regular rate, normal rhythm GI/Abdominal exam: Present: soft. Absent: distended, tenderness Extremities exam: Present: normal inspection, full ROM, normal capillary refill. Absent: tenderness, pedal edema Back exam: Present: normal inspection, tenderness, other (Lumbar scar, clean dry and intact, no erythema) Neurological exam: Present: alert, oriented X3, CN II-XII intact, reflexes normal (Bilateral patellar reflexes are 2+, plantar and dorsiflexion of the foot is normal). Absent: motor sensory deficit Psychiatric exam: Present: normal affect, normal mood Skin exam: Present: warm, dry, intact. Absent: cyanosis, diaphoretic Course Vital Signs 10/08/16 21:36 Temperature 99.2 F Pulse Rate 99 Respiratory 18 Rate Blood Pressure 111/62 O2 Sat by Pulse 96 Oximetry - Reevaluation(s) Reevaluation #1: 10/08/16 23:25 On reevaluation, patient has 9 out of 10 pain. Her except old pain tolerance is 8 out of 10. Medical Decision Making - Medical Decision Making 46-year-old female presenting with acute on chronic back pain. Pain has been worsening over the past 3 weeks. Her all medications are not working. She has been seen in the emergency department recently and was treated for her chronic back pain at that time. She does have outpatient follow-up with the pain specialist. She is not out of any of her medications. Patient has 2+ patellar reflexes, no saddle anesthesia, no bowel or bladder symptoms. No alarming features on physical exam. Patient is accompanied by her mother who states this is typical for her pain complaints. She is given Decadron, Dilaudid, and Toradol in the emergency department. Reevaluation her pain is improved. She does have an appointment with her pain specialist in the next 2 weeks. She is able to follow up with her primary care physician in the next several days. She is comfortable with discharge. She is feeling somewhat better after intramuscular pain medication. Diagnosis: Acute on chronic back pain Disposition Clinical Impression: Chronic back pain Disposition: HOME SELF-CARE Condition: Good Instructions: Chronic Back Pain (ED) Prescriptions: methylPREDNISolone Dose Pack [Medrol Dose Pack] 4 mg PO DIRECTED #21 package Referrals: Andry Luna DO [Primary Care Provider] - 1-2 days Time of Disposition: 23:28
[2016-10-08 23:36] VITALS: BP 94/53
[2016-10-09 00:07] VITALS: RESP 16
== END 2016-10-09 00:07 | disposition home or self-care (01) ==
LOC: EC 21:34
DX: G89.29 Other chronic pain (principal); M54.5 Low back pain; I48.91 Unspecified atrial fibrillation; F32.9 Major depressive disorder, single episode, unspecified; Z91.013 Allergy to seafood; Z79.899 Other long term (current) drug therapy
CPT/HCPCS: 99283; 96372 ×4; J1100; J1885; J1170

== ENCOUNTER 2016-10-18 12:56 | Observation (INO) | payer OTHER ==
[2016-10-18] MEDS ORDERED: SODIUM CHLORIDE 0.9% 1,000 ML IV STA (13:16)
[2016-10-18] MEDS ORDERED: SODIUM CHLORIDE 0.9% 500 ML IV STA (13:16)
[2016-10-18] MEDS ORDERED: DILTIAZEM 5 MG/ML 5 ML VIAL IVP STA (13:16)
[2016-10-18 13:21] LABS: Glucose,Whole Blood 107 mg/dL (75-99)
--- NOTE | 2016-10-18 13:33 | ED ---
General Adult HPI - General Chief complaint: Arrhythmia/Palpitations Stated complaint: Heart Racing Time Seen by Provider: 10/18/16 13:16 Source: patient, RN notes reviewed, old records reviewed Mode of arrival: wheelchair Limitations: no limitations - History of Present Illness Initial comments: This is a 46-year-old female ER for evaluation. Patient was unsafe for evaluation of shortness of breath and chest pain having is [place] patient states she has a remote history ragini fibrillation which she had cardiac ablation. No fevers. No cough or congestion. Patient's occasional recurrences of atrial fibrillation but she states that was never caught record. She takes no blood thinners, is on digoxin which she states she's been taking it as directed. No recent travel history or sick contacts. - Related Data Home Medications Medication Instructions Recorded Confirmed Digoxin [Lanoxin] 125 mcg PO DAILY 06/25/13 10/18/16 Gabapentin [Neurontin] 800 mg PO TID 06/25/13 10/18/16 Ibuprofen [Motrin] 800 mg PO Q8HR PRN 06/25/13 10/18/16 PARoxetine HCL [Paxil] 40 mg PO DAILY 06/25/13 10/18/16 Hydrocodone/Acetaminophen 1 tab PO Q4HR PRN 09/08/13 10/18/16 [Hydrocodone/Acetaminophen 10-325] fentaNYL [Duragesic] 1 patch TOPICAL Q72H 09/08/13 10/18/16 Ipratropium-Albuterol Nebulize 3 ml INHALATION RT-QID PRN 07/06/15 10/18/16 [Duoneb 0.5 mg-3 mg/3 ml Soln] Zolpidem Tartrate [Ambien] 10 mg PO HS 07/06/15 10/18/16 Albuterol Inhaler [Ventolin Hfa 1 - 2 puff INHALATION RT-Q6H PRN 10/08/16 Inhaler] Fenofibrate 160 mg PO DAILY 10/08/16 10/18/16 Levothyroxine Sodium [Synthroid] 25 mcg PO DAILY 10/08/16 10/18/16 Methocarbamol [Robaxin-750] 750 mg PO QID 10/08/16 10/18/16 Previous Rx's Medication Instructions Recorded Amitriptyline HCl [Elavil] 25 mg PO HS #30 tablet 10/18/16 Baclofen [Lioresal] 20 mg PO TID #90 tab 10/18/16 Allergies Allergy/AdvReac Type Severity Reaction Status Date / Time shellfish derived [Shellfish] Allergy Anaphylaxis Verified 10/18/16 13:20 Review of Systems ROS Statement: Those systems with pertinent positive or pertinent negative responses have been documented in the HPI. ROS Other: All systems not noted in ROS Statement are negative. Past Medical History Past Medical History: Atrial Fibrillation, Chest Pain / Angina, Deep Vein Thrombosis (DVT), Osteoarthritis (OA), Respiratory Disorder, Supraventricular Tachycardia (SVT), Syncope Additional Past Medical History / Comment(s): chronic bronchitis. chronic back pain states all vertebrae are herniated, hx. kidney stones, permanent wheeze, born with heart defect History of Any Multi-Drug Resistant Organisms: None Reported Past Surgical History: Back Surgery, Cardiac Ablation, Cholecystectomy, Orthopedic Surgery Additional Past Surgical History / Comment(s): 14 back surgery's., geo knee arthroscopy, PAIN CLINIC PROCEDURES Past Anesthesia/Blood Transfusion Reactions: No Reported Reaction Past Psychological History: Depression Smoking Status: Never smoker - Past Family History Mother Family Medical History: No Reported History Brother(s) Family Medical History: Cancer General Exam Limitations: no limitations General appearance: alert, in no apparent distress Head exam: Present: atraumatic, normocephalic, normal inspection Eye exam: Present: normal appearance, PERRL, EOMI. Absent: scleral icterus, conjunctival injection, periorbital swelling ENT exam: Present: normal exam, mucous membranes moist Neck exam: Present: normal inspection. Absent: tenderness, meningismus, lymphadenopathy Respiratory exam: Present: normal lung sounds bilaterally. Absent: respiratory distress, wheezes, rales, rhonchi, stridor Cardiovascular Exam: Present: tachycardia, irregular rhythm, normal heart sounds. Absent: systolic murmur, diastolic murmur, rubs, gallop, clicks GI/Abdominal exam: Present: soft, normal bowel sounds. Absent: distended, tenderness, guarding, rebound, rigid Extremities exam: Present: normal inspection, full ROM, normal capillary refill. Absent: tenderness, pedal edema, joint swelling, calf tenderness Back exam: Present: normal inspection Neurological exam: Present: alert, oriented X3, CN II-XII intact Psychiatric exam: Present: normal affect, normal mood Skin exam: Present: warm, dry, intact, normal color. Absent: rash Course Vital Signs 10/18/16 10/18/16 12:58 14:01 Temperature 98.0 F Pulse Rate 121 H 78 Respiratory 18 20 Rate Blood Pressure 110/74 102/67 O2 Sat by Pulse 98 95 Oximetry EKG Findings - EKG Comments: EKG Findings:: EKG shows normal sinus around 95, DC 190, QRS 78, QTC 449 Medical Decision Making - Lab Data Result diagrams: 10/18/16 13:23 10/18/16 13:23 Lab Results 10/18/16 10/18/16 10/18/16 Range/Units 13:20 13:23 13:23 WBC 7.0 (3.8-10.6) k/uL RBC 4.18 (3.80-5.40) m/uL Hgb 13.1 (11.4-16.0) gm/dL Hct 38.5 (34.0-46.0) % MCV 92.0 (80.0-100.0) fL MCH 31.2 (25.0-35.0) pg MCHC 33.9 (31.0-37.0) g/dL RDW 14.1 (11.5-15.5) % Plt Count 248 (150-450) k/uL Neutrophils % 59 % Lymphocytes % 32 % Monocytes % 5 % Eosinophils % 1 % Basophils % 1 % Neutrophils # 4.1 (1.3-7.7) k/uL Lymphocytes # 2.3 (1.0-4.8) k/uL Monocytes # 0.4 (0-1.0) k/uL Eosinophils # 0.1 (0-0.7) k/uL Basophils # 0.1 (0-0.2) k/uL PT (9.0-12.0) sec INR (<1.2) APTT (22.0-30.0) sec Sodium (137-145) mmol/L Potassium (3.5-5.1) mmol/L Chloride (98-107) mmol/L Carbon Dioxide (22-30) mmol/L Anion Gap mmol/L BUN (7-17) mg/dL Creatinine (0.52-1.04) mg/dL Est GFR (MDRD) Af Amer (>60 ml/min/1.73 sqM) Est GFR (MDRD) Non-Af (>60 ml/min/1.73 sqM) Glucose (74-99) mg/dL POC Glucose (mg/dL) 107 H (75-99) mg/dL POC Glu School L[employer] Monitor ID Mayuri Lin Calcium (8.4-10.2) mg/dL Phosphorus (2.5-4.5) mg/dL Magnesium (1.6-2.3) mg/dL Total Bilirubin (0.2-1.3) mg/dL AST (14-36) U/L ALT (9-52) U/L Alkaline Phosphatase (38-126) U/L Total Creatine Kinase 21 L (30-135) U/L CK-MB (CK-2) 0.6 (0.0-2.4) ng/mL CK-MB (CK-2) Rel Index 2.9 Troponin I <0.012 (0.000-0.034) ng/mL Total Protein (6.3-8.2) g/dL Albumin (3.5-5.0) g/dL Urine Color Urine Appearance (Clear) Urine pH (5.0-8.0) Ur Specific Hodge (1.001-1.035) Urine Protein (Negative) Urine Glucose (UA) (Negative) Urine Ketones (Negative) Urine Blood (Negative) Urine Nitrite (Negative) Urine Bilirubin (Negative) Urine Urobilinogen (<2.0) mg/dL Ur Leukocyte Esterase (Negative) Urine RBC (0-5) /hpf Urine WBC (0-5) /hpf Ur Squamous Epith Cells (0-4) /hpf Urine Bacteria (None) /hpf Hyaline Casts (0-2) /lpf Urine Mucus (None) /hpf 10/18/16 10/18/16 10/18/16 Range/Units 13:23 13:23 13:58 WBC (3.8-10.6) k/uL RBC (3.80-5.40) m/uL Hgb (11.4-16.0) gm/dL Hct (34.0-46.0) % MCV (80.0-100.0) fL MCH (25.0-35.0) pg MCHC (31.0-37.0) g/dL RDW (11.5-15.5) % Plt Count (150-450) k/uL Neutrophils % % Lymphocytes % % Monocytes % % Eosinophils % % Basophils % % Neutrophils # (1.3-7.7) k/uL Lymphocytes # (1.0-4.8) k/uL Monocytes # (0-1.0) k/uL Eosinophils # (0-0.7) k/uL Basophils # (0-0.2) k/uL PT 10.0 (9.0-12.0) sec INR 1.0 (<1.2) APTT 19.2 L (22.0-30.0) sec Sodium 140 (137-145) mmol/L Potassium 3.8 (3.5-5.1) mmol/L Chloride 106 (98-107) mmol/L Carbon Dioxide 19 L (22-30) mmol/L Anion Gap 15 mmol/L BUN 17 (7-17) mg/dL Creatinine 0.71 (0.52-1.04) mg/dL Est GFR (MDRD) Af Amer >60 (>60 ml/min/1.73 sqM) Est GFR (MDRD) Non-Af >60 (>60 ml/min/1.73 sqM) Glucose 99 (74-99) mg/dL POC Glucose (mg/dL) (75-99) mg/dL POC Glu School Lunch Monitor ID Calcium 9.7 (8.4-10.2) mg/dL Phosphorus 2.5 (2.5-4.5) mg/dL Magnesium 1.9 (1.6-2.3) mg/dL Total Bilirubin 0.4 (0.2-1.3) mg/dL AST 33 (14-36) U/L ALT 25 (9-52) U/L Alkaline Phosphatase 72 (38-126) U/L Total Creatine Kinase (30-135) U/L CK-MB (CK-2) (0.0-2.4) ng/mL CK-MB (CK-2) Rel Index Troponin I (0.000-0.034) ng/mL Total Protein 8.4 H (6.3-8.2) g/dL Albumin 5.2 H (3.5-5.0) g/dL Urine Color Yellow Urine Appearance Cloudy H (Clear) Urine pH 6.0 (5.0-8.0) Ur Specific Hodge 1.040 H (1.001-1.035) Urine Protein 1+ H (Negative) Urine Glucose (UA) Negative (Negative) Urine Ketones Negative (Negative) Urine Blood Moderate H (Negative) Urine Nitrite Negative (Negative) Urine Bilirubin 1+ H (Negative) Urine Urobilinogen 2.0 (<2.0) mg/dL Ur Leukocyte Esterase Trace H (Negative) Urine RBC 26 H (0-5) /hpf Urine WBC 4 (0-5) /hpf Ur Squamous Epith Cells 10 H (0-4) /hpf Urine Bacteria Rare H (None) /hpf Hyaline Casts 3 H (0-2) /lpf Urine Mucus Occasional H (None) /hpf Critical Care Time Critical Care Time: Yes Total Critical Care Time: 31 Disposition Clinical Impression: Atrial fibrillation, Chronic back pain, Chest pain, Atrial fibrillation with RVR Disposition: ADMITTED IP TO THIS HOSP Referrals: Andry Luna DO [Primary Care Provider] - 1-2 days
[2016-10-18 13:54] LABS: Basophils # (A) 0.1 k/uL (0-0.2); Basophils % (A) 1 %; CHCM 34.9; Eosinophils # (A) 0.1 k/uL (0-0.7); Eosinophils % (A) 1 %; HCT 38.5 % (34.0-46.0); HGB 13.1 gm/dL (11.4-16.0); Luc % (Auto) 1; Lymphocytes # (A) 2.3 k/uL (1.0-4.8); Lymphocytes % (A) 32 %; MCH 31.2 pg (25.0-35.0); MCHC 33.9 g/dL (31.0-37.0); Monocytes # (A) 0.4 k/uL (0-1.0); Monocytes % (A) 5 %; Neutrophils # (A) 4.1 k/uL (1.3-7.7); Neutrophils % (A) 59 %; RBC 4.18 m/uL (3.80-5.40); RDW 14.1 % (11.5-15.5); WBC (Perox) 6.87
[2016-10-18 14:02] LABS: ALT 25 U/L (9-52); AST 33 U/L (14-36); Alkaline Phosphatase 72 U/L (38-126); Anion Gap 15 mmol/L; Blood Urea Nitrogen 17 mg/dL (7-17); Calcium 9.7 mg/dL (8.4-10.2); Carbon Dioxide 19 mmol/L (22-30); Chloride 106 mmol/L (98-107); Glucose 99 mg/dL (74-99); Magnesium 1.9 mg/dL (1.6-2.3); Non-African American GFR(MDRD) >60 (>60 ml/min/1.73 sqM); Phosphorus 2.5 mg/dL (2.5-4.5); Potassium 3.8 mmol/L (3.5-5.1); Sodium 140 mmol/L (137-145); Total Bilirubin 0.4 mg/dL (0.2-1.3); Total Protein 8.4 g/dL (6.3-8.2)
[2016-10-18 14:09] LABS: Creatine Kinase 21 U/L (30-135)
[2016-10-18 14:12] LABS: Appearance,Urine Cloudy (Clear); Bacteria,Urine Rare /hpf; Bilirubin,Urine 1+ (Negative); Glucose,Urine (UA) Negative (Negative); Ketones,Urine Negative (Negative); Leukocyte Esterase,Urine Trace (Negative); Mucus,Urine Occasional /hpf; Nitrite,Urine Negative (Negative); Particle Count 7367; Protein,Urine 1+ (Negative); RBC,Urine 26 /hpf (0-5); Squamous Epithelial Cell,Urine 10 /hpf (0-4); UA Billing (MACRO vs. MICRO) MICRO; WBC,Urine 4 /hpf (0-5)
[2016-10-18 14:15] LABS: Partial Thromboplastin Time 19.2 sec (22.0-30.0)
[2016-10-18 14:22] LABS: Creatine Kinase MB 0.6 ng/mL (0.0-2.4); Troponin I <0.012 ng/mL (0.000-0.034)
--- NOTE | 2016-10-18 14:22 | XR ---
EXAMINATION TYPE: XR chest 2V DATE OF EXAM: 10/18/2016 COMPARISON: Prior chest x-ray 03/24/2016 HISTORY: Weakness, irregular heartbeat, arrhythmia TECHNIQUE: Frontal and lateral views of the chest are obtained. FINDINGS: There is no focal air space opacity, pleural effusion, or pneumothorax seen. The cardiac silhouette size is within normal limits. There are overlying cardiac leads. The osseous structures a re intact. Surgical clips are present in the right upper quadrant. IMPRESSION: No acute cardiopulmonary process.
[2016-10-18] MEDS ORDERED: HEPARIN SODIUM,PORCINE 5,000 UNIT/ML 1 ML VIAL IV ONE (14:45)
[2016-10-18] MEDS ORDERED: MORPHINE SULFATE 4 MG/ML SYRINGE IV PRN (14:45)
[2016-10-18] MEDS ORDERED: HEPARIN SODIUM,PORCINE/D5W PMX 25,000 UNIT in DEXTROSE/WATER 1 500ML.BAG IV SCH (14:45)
[2016-10-18] MEDS ORDERED: HEPARIN SODIUM,PORCINE 5,000 UNIT/ML 1 ML VIAL IV PRN (14:45)
[2016-10-18] MEDS ORDERED: ASPIRIN 81 MG PO STA (14:45)
[2016-10-18] MEDS ORDERED: IPRATROPIUM-ALBUTEROL 3 ML NEB INHALATION PRN (15:56)
[2016-10-18] MEDS ORDERED: ZOLPIDEM 10 MG TAB PO PRN (15:56)
--- NOTE | 2016-10-18 16:31 | P.HPIM ---
History of Present Illness 46-year-old female came in with complaints of chest pain pressure-like sensation midsternal area with palpitations patient is admitted for atrial fibrillation but I did not see any EKGs in the chart showing atrial fibrillation patient on telemetry is in sinus rhythm rate controlled at this point of time patient all these and Cardizem. Patient does have history of atrial fibrillation in the past and patient is status post ablation not anti- correlation at home. Patient denied any smoking history. Patient denied any cough runny nose fever chills. Patient chest pain is pressure-like sensation associated diaphoresis palpitations and shortness of breath lasted for a few hours and patient still has this pain in the epigastric area nonradiating denied any recent travel or sick contacts Review of Systems REVIEW OF SYSTEMS: CONSTITUTIONAL: No fever, no malaise, no fatigue. HEENT: No recent visual problems or hearing problems. Denied any sore throat. CARDIOVASCULAR: No orthopnea, PND, PULMONARY: No shortness of breath, no cough, no hemoptysis. GASTROINTESTINAL: No diarrhea, no nausea, no vomiting, no abdominal pain. Normoactive bowel sounds. NEUROLOGICAL: No headaches, no weakness, no numbness. HEMATOLOGICAL: Denies any bleeding or petechiae. GENITOURINARY: Denies any burning micturition, frequency, or urgency. MUSCULOSKELETAL/RHEUMATOLOGICAL: Denies any joint pain, swelling, or any muscle pain. ENDOCRINE: Denies any polyuria or polydipsia. The rest of the 14-point review of systems is negative. Past Medical History Past Medical History: Atrial Fibrillation, Chest Pain / Angina, Deep Vein Thrombosis (DVT), Fibromyalgia, Osteoarthritis (OA), Respiratory Disorder, Supraventricular Tachycardia (SVT), Syncope Additional Past Medical History / Comment(s): chronic bronchitis. chronic back pain ddd,herniated disc-multuple sx and pain clinic procedures.falls, migarines , hx. kidney stones, permanent wheeze, "born with heart defect.past svt-had ablation,kidney stones uti-ecoli 03-24-16, peripheral neuropathy. History of Any Multi-Drug Resistant Organisms: None Reported Past Surgical History: Back Surgery, Cardiac Ablation, Cholecystectomy, Orthopedic Surgery Additional Past Surgical History / Comment(s): 14 back surgery's., geo knee arthroscopy, PAIN CLINIC PROCEDURES, past cardiac ablation for svt and ep study/ ablation for afib Past Anesthesia/Blood Transfusion Reactions: No Reported Reaction Smoking Status: Never smoker - Past Family History Mother Family Medical History: No Reported History Brother(s) Family Medical History: Cancer Additional Family Medical History / Comment(s): both brothers when they reached age 39. one from brain cancer and the other from complications from a congential heart problem. Father Family Medical History: Diabetes Mellitus Additional Family Medical History / Comment(s): pt's mother has hypertension, kidney stones, endometreosis Medications and Allergies Home Medications Medication Instructions Recorded Confirmed Type Digoxin [Lanoxin] 125 mcg PO DAILY 06/25/13 10/18/16 History Gabapentin [Neurontin] 800 mg PO TID 06/25/13 10/18/16 History Ibuprofen [Motrin] 800 mg PO Q8HR PRN 06/25/13 10/18/16 History PARoxetine HCL [Paxil] 40 mg PO DAILY 06/25/13 10/18/16 History Hydrocodone/Acetaminophen 1 tab PO Q4HR PRN 09/08/13 10/18/16 History [Hydrocodone/Acetaminophen 10-325] fentaNYL [Duragesic] 1 patch TOPICAL Q72H 09/08/13 10/18/16 History Ipratropium-Albuterol Nebulize 3 ml INHALATION RT-QID PRN 07/06/15 10/18/16 History [Duoneb 0.5 mg-3 mg/3 ml Soln] Zolpidem Tartrate [Ambien] 10 mg PO HS 07/06/15 10/18/16 History Albuterol Inhaler [Ventolin Hfa 1 - 2 puff INHALATION RT-Q6H PRN 10/08/16 History Inhaler] Fenofibrate 160 mg PO DAILY 10/08/16 10/18/16 History Levothyroxine Sodium [Synthroid] 25 mcg PO DAILY 10/08/16 10/18/16 History Methocarbamol [Robaxin-750] 750 mg PO QID 10/08/16 10/18/16 History Amitriptyline HCl [Elavil] 25 mg PO HS #30 tablet 10/18/16 10/18/16 Rx Baclofen [Lioresal] 20 mg PO TID #90 tab 10/18/16 10/18/16 Rx Allergies Allergy/AdvReac Type Severity Reaction Status Date / Time shellfish derived [Shellfish] Allergy Anaphylaxis Verified 10/18/16 13:20 Physical Exam Vitals: Vital Signs Temp Pulse Resp BP Pulse Ox 10/18/16 15:37 98 F 78 20 116/67 97 10/18/16 15:00 92 20 145/61 95 10/18/16 14:01 78 20 102/67 95 10/18/16 12:58 98.0 F 121 H 18 110/74 98 Intake and Output 10/18/16 10/18/16 10/18/16 06:59 14:59 22:59 Other: Weight 77.111 kg Patient Weight 10/19/16 06:59 Weight 77.111 kg PHYSICAL EXAMINATION: GENERAL: The patient is alert and oriented x3, not in any acute distress. Well developed, well nourished. HEENT: Pupils are round and equally reacting to light. EOMI. No scleral icterus. No conjunctival pallor. Normocephalic, atraumatic. No pharyngeal erythema. No thyromegaly. CARDIOVASCULAR: S1 and S2 present. No murmurs, rubs, or gallops. PULMONARY: Chest is clear to auscultation, no wheezing or crackles. ABDOMEN: Soft, nontender, nondistended, normoactive bowel sounds. No palpable organomegaly. MUSCULOSKELETAL: No joint swelling or deformity. EXTREMITIES: No cyanosis, clubbing, or pedal edema. NEUROLOGICAL: Gross neurological examination did not reveal any focal deficits. SKIN: No rashes. Results CBC & Chem 7: 10/18/16 13:23 10/18/16 13:23 Labs: Abnormal Lab Results - Last 24 Hours (Table) 10/18/16 10/18/16 10/18/16 Range/Units 13:20 13:23 13:23 APTT (22.0-30.0) sec Carbon Dioxide 19 L (22-30) mmol/L POC Glucose (mg/dL) 107 H (75-99) mg/dL Total Creatine Kinase 21 L (30-135) U/L Total Protein 8.4 H (6.3-8.2) g/dL Albumin 5.2 H (3.5-5.0) g/dL Urine Appearance (Clear) Ur Specific [place] (1.001-1.035) Urine Protein (Negative) Urine Blood (Negative) Urine Bilirubin (Negative) Ur Leukocyte Esterase (Negative) Urine RBC (0-5) /hpf Ur Squamous Epith Cells (0-4) /hpf Urine Bacteria (None) /hpf Hyaline Casts (0-2) /lpf Urine Mucus (None) /hpf 10/18/16 10/18/16 Range/Units 13:23 13:58 APTT 19.2 L (22.0-30.0) sec Carbon Dioxide (22-30) mmol/L POC Glucose (mg/dL) (75-99) mg/dL Total Creatine Kinase (30-135) U/L Total Protein (6.3-8.2) g/dL Albumin (3.5-5.0) g/dL Urine Appearance Cloudy H (Clear) Ur Specific [place] 1.040 H (1.001-1.035) Urine Protein 1+ H (Negative) Urine Blood Moderate H (Negative) Urine Bilirubin 1+ H (Negative) Ur Leukocyte Esterase Trace H (Negative) Urine RBC 26 H (0-5) /hpf Ur Squamous Epith Cells 10 H (0-4) /hpf Urine Bacteria Rare H (None) /hpf Hyaline Casts 3 H (0-2) /lpf Urine Mucus Occasional H (None) /hpf Assessment and Plan Plan: #1 chest pain: Patient will be ruled out acute coronary syndromes, cardiology was consulted will obtain 2 more sets of troponins. #2 possible atrial fibrillation with rapid unclear rate: Patient is presently rate controlled anti-correlation will be continued until cardiology evaluation. Patient had history of SVT or atrial fibrillation in the past status post ablation. #3 fibromyalgia #4 osteoarthritis #5 peripheral neuropathy #6 history of DVT in the past not on anti-correlation at this point of time
[2016-10-18] MEDS: GABAPENTIN 400 MG CAP PO SCH ×2 (18:00→20:46)
[2016-10-18] MEDS: BACLOFEN 10 MG TAB PO SCH ×2 (18:00→20:45)
[2016-10-18] MEDS: NITROGLYCERIN SL TABS 0.4 MG TAB SUBLINGUAL PRN (20:38)
[2016-10-18] MEDS: HYDROcodone/APAP 10-325MG 1 EACH TAB PO PRN (20:46)
[2016-10-18 20:56] LABS: Creatine Kinase 22 U/L (30-135)
[2016-10-18] MEDS ORDERED: AMITRIPTYLINE HCL 25 MG TAB PO SCH (21:00)
[2016-10-18 21:09] LABS: Creatine Kinase MB 1.1 ng/mL (0.0-2.4); Troponin I <0.012 ng/mL (0.000-0.034)
[2016-10-18] MEDS: METOPROLOL TARTRATE 50 MG TAB PO SCH (23:45)
[2016-10-19 02:57] LABS: Creatine Kinase <20 U/L (30-135)
[2016-10-19 03:09] LABS: Troponin I <0.012 ng/mL (0.000-0.034)
[2016-10-19] MEDS ORDERED: LEVOTHYROXINE 25 MCG TAB PO SCH (06:30)
[2016-10-19] MEDS: NITROGLYCERIN SL TABS 0.4 MG TAB SUBLINGUAL PRN (07:37)
[2016-10-19] MEDS ORDERED: REGADENOSON 0.4 MG/5 ML SYRINGE IV ONE (07:57)
[2016-10-19] MEDS ORDERED: AMINOPHYLLINE 500 MG/20 ML VIAL IV PRN (07:57)
[2016-10-19] MEDS: HYDROcodone/APAP 10-325MG 1 EACH TAB PO PRN (08:01)
--- NOTE | 2016-10-19 08:33 | P.CRDCN ---
History of Present Illness Consult date: 10/19/16 Consult reason: chest pain History of present illness: 46-year-old lady with history of paroxysmal atrial tachyarrhythmia status post ablation who sees Dr. Grant regularly comes in to Hospital complaining of palpitations. She was apparently in the pain clinic her heart rate was found to be going up and down and she felt a little sweaty. She was brought in as atrial fibrillation but she really did not have any documented atrial fibrillation but haven't found rhythm strips are EKGs to show it. She has been in stable sinus rhythm. EKG shows T-wave changes in the precordial leads she has had similar changes in the past. Patient complains of firm episodes of chest discomfort that are sharp pericardial and atypical. She also has epigastric discomfort. She ruled out for myocardial infarction. Patient has fibromyalgia and takes large doses of norco. Review of Systems Constitutional: Denies chills. Denies fever. Eyes: Denies blurred vision. Denies pain. Ears, nose, mouth and throat: Denies headache. Denies sore throat. Cardiovascular: has chest pain. Denies shortness of breath. Respiratory: Denies cough. Gastrointestinal: Denies abdominal pain. Denies diarrhea. Denies nausea. Denies vomiting. Musculoskeletal: Denies myalgias. Integumentary: Denies pruritus. Denies rash. Neurological: Denies numbness. Denies weakness. Psychiatric: Denies anxiety. Denies depression. Endocrine: Denies fatigue. Denies weight change. Genitourinary: Denies burning, hematuria, frequency of urination. Hematological: No anemia or excess bleeding. Past Medical History Past Medical History: Atrial Fibrillation, Chest Pain / Angina, Deep Vein Thrombosis (DVT), Fibromyalgia, Osteoarthritis (OA), Respiratory Disorder, Supraventricular Tachycardia (SVT), Syncope Additional Past Medical History / Comment(s): chronic bronchitis. chronic back pain ddd,herniated disc-multuple sx and pain clinic procedures.falls, migarines , hx. kidney stones, permanent wheeze, "born with heart defect.past svt-had ablation,kidney stones uti-ecoli 03-24-16, peripheral neuropathy. History of Any Multi-Drug Resistant Organisms: None Reported Past Surgical History: Back Surgery, Cardiac Ablation, Cholecystectomy, Orthopedic Surgery Additional Past Surgical History / Comment(s): 14 back surgery's., geo knee arthroscopy, PAIN CLINIC PROCEDURES, past cardiac ablation for svt and ep study/ ablation for afib Past Anesthesia/Blood Transfusion Reactions: No Reported Reaction Smoking Status: Never smoker - Past Family History Mother Family Medical History: No Reported History Brother(s) Family Medical History: Cancer Additional Family Medical History / Comment(s): both brothers when they reached age 39. one from brain cancer and the other from complications from a congential heart problem. Father Family Medical History: Diabetes Mellitus Additional Family Medical History / Comment(s): pt's mother has hypertension, kidney stones, endometreosis Medications and Allergies Home Medications Medication Instructions Recorded Confirmed Type Digoxin [Lanoxin] 125 mcg PO DAILY 06/25/13 10/18/16 History Gabapentin [Neurontin] 800 mg PO TID 06/25/13 10/18/16 History Ibuprofen [Motrin] 800 mg PO Q8HR PRN 06/25/13 10/18/16 History PARoxetine HCL [Paxil] 40 mg PO DAILY 06/25/13 10/18/16 History Hydrocodone/Acetaminophen 1 tab PO Q4HR PRN 09/08/13 10/18/16 History [Hydrocodone/Acetaminophen 10-325] fentaNYL [Duragesic] 1 patch TOPICAL Q72H 09/08/13 10/18/16 History Ipratropium-Albuterol Nebulize 3 ml INHALATION RT-QID PRN 07/06/15 10/18/16 History [Duoneb 0.5 mg-3 mg/3 ml Soln] Zolpidem Tartrate [Ambien] 10 mg PO HS 07/06/15 10/18/16 History Albuterol Inhaler [Ventolin Hfa 1 - 2 puff INHALATION RT-Q6H PRN 10/08/16 History Inhaler] Fenofibrate 160 mg PO DAILY 10/08/16 10/18/16 History Levothyroxine Sodium [Synthroid] 25 mcg PO DAILY 10/08/16 10/18/16 History Methocarbamol [Robaxin-750] 750 mg PO QID 10/08/16 10/18/16 History Amitriptyline HCl [Elavil] 25 mg PO HS #30 tablet 10/18/16 10/18/16 Rx Baclofen [Lioresal] 20 mg PO TID #90 tab 10/18/16 10/18/16 Rx Allergies Allergy/AdvReac Type Severity Reaction Status Date / Time shellfish derived [Shellfish] Allergy Anaphylaxis Verified 10/18/16 13:20 Physical Exam Vitals: Vital Signs Temp Pulse Pulse Pulse Resp BP BP 10/19/16 03:42 55 L 18 10/19/16 03:41 96.8 F L 55 L 18 100/57 10/19/16 00:00 97.1 F L 70 18 113/56 10/18/16 20:00 98.0 F 70 18 120/63 10/18/16 16:00 98.1 F 86 16 137/73 10/18/16 15:37 98 F 78 20 116/67 10/18/16 15:00 92 20 145/61 10/18/16 14:01 78 20 102/67 10/18/16 12:58 98.0 F 121 H 18 110/74 Pulse Ox 10/19/16 03:42 10/19/16 03:41 96 10/19/16 00:00 95 10/18/16 20:00 97 10/18/16 16:00 96 10/18/16 15:37 97 10/18/16 15:00 95 10/18/16 14:01 95 10/18/16 12:58 98 Intake and Output 10/18/16 10/19/16 10/19/16 22:59 06:59 14:59 Intake Total 120 309.258 Balance 120 309.258 Intake: IV 148 Heparin Sodium,Porcine/ 148 D5w Pmx 25,000 unit In Dextrose/Water 1 500ml. bag @ 12 UNITS/KG/HR 18.5 mls/hr IV .Q24H AREL[facility] Rx#: [id number] Intake, IV Titration 161.258 Amount Heparin Sodium,Porcine/ 161.258 D5w Pmx 25,000 unit In Dextrose/Water 1 500ml. bag @ 12 UNITS/KG/HR 18.5 mls/hr IV .Q24H ARELIS Rx#: [id number] Oral 120 Other: # Voids 2 Weight 76.7 kg General: The patient is awake and alert, in no distress, and does not appear acutely ill. Skin: Skin is warm and dry and no rashes or lesions are noted. Eye: Pupils are equal, round and reactive to light, extra-ocular movements are intact; there is normal conjunctiva bilaterally. Ears, nose, mouth and throat: There are moist mucous membranes and no oral lesions. Neck: The neck is supple, there is no tenderness or JVD. Cardiovascular: There is a regular rate and rhythm. No murmur, rub or gallop is appreciated. Respiratory: Lungs are clear to auscultation, respirations are non-labored, breath sounds are equal. Gastrointestinal: Soft, non-distended, non-tender abdomen without masses or organomegaly noted. There is no rebound or guarding present. Bowel sounds are unremarkable. Back: There is no tenderness to palpation in the midline. There is no obvious deformity. Musculoskeletal: Normal ROM, no tenderness, There is no pedal edema. There is no calf tenderness or swelling. Extremities: No edema. Vascular: Femoral pulse is normal. Posterior tibial pulses are normal .Dorsalis pedis is palpable. Neurological: CN II-XII intact. There are no obvious motor or sensory deficits. Speech is normal. Psychiatric: Cooperative, appropriate mood & affect, normal judgment. Results 10/18/16 13:23 10/18/16 13:23 Cardiac Enzymes 10/18/16 10/18/16 10/18/16 Range/Units : 13: 20:05 AST 33 (14-36) U/L CK-MB (CK-2) 0.6 1.1 (0.0-2.4) ng/mL Troponin I <0.012 <0.012 (0.000-0.034) ng/mL 10/19/16 Range/Units 02:30 AST (14-36) U/L CK-MB (CK-2) 1.0 (0.0-2.4) ng/mL Troponin I <0.012 (0.000-0.034) ng/mL Coagulation 10/18/16 10/18/16 10/19/16 Range/Units :23 20:05 02:30 PT 10.0 (9.0-12.0) sec APTT 19.2 L 32.4 H 61.3 H (22.0-30.0) sec CBC 10/18/16 Range/Units 13: WBC 7.0 (3.8-10.6) k/uL RBC 4.18 (3.80-5.40) m/uL Hgb 13.1 (11.4-16.0) gm/dL Hct 38.5 (34.0-46.0) % Plt Count 248 (150-450) k/uL Comprehensive Metabolic Panel 10/18/16 Range/Units 13:23 Sodium 140 (137-145) mmol/L Potassium 3.8 (3.5-5.1) mmol/L Chloride 106 (98-107) mmol/L Carbon Dioxide 19 L (22-30) mmol/L BUN 17 (7-17) mg/dL Creatinine 0.71 (0.52-1.04) mg/dL Glucose 99 (74-99) mg/dL Calcium 9.7 (8.4-10.2) mg/dL AST 33 (14-36) U/L ALT 25 (9-52) U/L Alkaline Phosphatase 72 (38-126) U/L Total Protein 8.4 H (6.3-8.2) g/dL Albumin 5.2 H (3.5-5.0) g/dL Current Medications Generic Name Dose Route Start Last Admin Trade Name Freq PRN Reason Stop Dose Admin Hydrocodone Bitart/Acetaminophen 1 each 10/18/16 15:56 10/19/16 08:01 [place] 10 PO 1 each Q4HR PRN Administration Pain Albuterol/Ipratropium 3 ml 10/18/16 15:56 Duoneb 0.5 Mg-3 Mg/3 Ml Soln INHALATION RT-QID PRN Shortness Of Breath Aminophylline 100 mg 10/19/16 07:57 Aminophylline IV ONCE PRN Patient Response Amitriptyline HCl 25 mg 10/18/16 21:00 10/18/16 20:46 Elavil PO 25 mg HS ARE[facility] Administration Aspirin 325 mg 10/19/16 09:00 Aspirin PO DAILY ARE[facility]IS Baclofen 20 mg 10/18/16 16:15 10/18/16 20:45 Lioresal PO 20 mg TID ARELIS Administration Fenofibrate 160 mg 10/19/16 09:00 Lofibra PO DAILY ARELIS Fentanyl 1 patch 10/19/16 09:00 Duragesic 100mcg/Hr Patch TRANSDERM Q72H [facility] Gabapentin 800 mg 10/18/16 16:15 10/18/16 20:46 Neurontin PO 800 mg TID ARE[facility]IS Administration Levothyroxine Sodium 25 mcg 10/19/16 06:30 10/19/16 06:58 Synthroid PO 25 mcg DAILY@0630 ARE[facility] Administration Metoprolol Tartrate 50 mg 10/18/16 21:00 10/18/16 23:45 Lopressor PO 50 mg BID ARE[facility] Administration Morphine Sulfate 4 mg 10/18/16 14:45 Morphine Sulfate (Inj) IV Q5M PRN Chest Pain Nitroglycerin 0.4 mg 10/18/16 14:45 10/19/16 07:37 Nitrostat SUBLINGUAL 0.4 mg Q5M PRN Administration Chest Pain Paroxetine HCl 40 mg 10/19/16 09:00 Paxil PO DAILY ARE[facility]IS Zolpidem Tartrate 10 mg 10/18/16 15:56 10/18/16 23:47 Ambien PO 10 mg HS PRN Administration Insomnia Intake and Output 10/18/16 10/19/16 10/19/16 22:59 06:59 14:59 Intake Total 120 309.258 Balance 120 309.258 Intake: IV 148 Heparin Sodium,Porcine/ 148 D5w Pmx 25,000 unit In Dextrose/Water 1 500ml. bag @ 12 UNITS/KG/HR 18.5 mls/hr IV .Q24H [facility] Rx#: [id number] Intake, IV Titration 161.258 Amount Heparin Sodium,Porcine/ 161.258 D5w Pmx 25,000 unit In Dextrose/Water 1 500ml. bag @ 12 UNITS/KG/HR 18.5 mls/hr IV .Q24H [facility] Rx#: [id number] Oral 120 Other: # Voids 2 Weight 76.7 kg 10/18/16 13:23 10/18/16 13:23 EKG Interpretations (text) Sinus bradycardia with T-wave inversions in the precordial leads Assessment and Plan Plan: Precordial chest pain Paroxysmal atrial fibrillation No documented episodes of atrial fibrillation on this admission. Myocardial infarction is ruled out. EKG changes are chronic. We'll schedule her for a Lexiscan.
[2016-10-19] MEDS ORDERED: ASPIRIN 325 MG TAB PO SCH (09:00)
[2016-10-19] MEDS ORDERED: FENOFIBRATE 160 MG TAB PO SCH (09:00)
[2016-10-19] MEDS ORDERED: PARoxetine 20 MG TAB PO SCH (09:00)
[2016-10-19] MEDS ORDERED: DIGOXIN 125 MCG TAB PO SCH (09:00)
[2016-10-19 09:15] VITALS: RESP 20
--- NOTE | 2016-10-19 10:56 | ECHOF ---
Referral Reason: MEASUREMENTS -------- HEIGHT: 172.7 cm WEIGHT: 76.7 kg BP: RVIDd: 2.8 cm (< 3.3) IVSd: 1.1 cm (0.6 - 1.1) LVIDd: 4.6 cm (3.9 - 5.3) LVPWd: 1.2 cm (0.6 - 1.1) IVSs: 1.3 cm LVIDs: 4.1 cm LVPWs: 1.4 cm LA Diam: 3.7 cm (2.7 - 3.8) LAESV Index (A-L): 19.59 ml/m Ao Diam: 3.2 cm (2.0 - 3.7) AV Cusp: 1.9 cm (1.5 - 2.6) LA Diam: 3.7 cm (2.7 - 3.8) MV EXCURSION: 15.965 mm (> 18.000) MV EF SLOPE: 102 mm/s (70 - 150) EPSS: 0.3 cm RAP: 5.00 mmHg RVSP: 22.75 mmHg FINDINGS -------- Sinus rhythm. This was a technically adequate study. LV size, wall thickness and systolic function are normal, with an EF greater than 55%. The left ventricular size is normal. The right ventricle is normal in size. Normal LA size by volume 22+/-6 ml/m2. The right atrial size is normal. The aortic valve is trileaflet, and appears structurally normal. No aortic stenosis or regurgitation. Mild mitral regurgitation is present. Mild tricuspid regurgitation present. There is no evidence of pulmonary hypertension. The right ventricular systolic pressure, as measured by Doppler, is 22.75mmHg. There is no pulmonic regurgitation present. The aortic root size is normal. There is no pericardial effusion. CONCLUSIONS -------- 1. LV size, wall thickness and systolic function are normal, with an EF greater than 55%. 2. There is no pericardial effusion. 3. The left ventricular size is normal. 4. The aortic valve is trileaflet, and appears structurally normal. No aortic stenosis or regurgitation. 5. Mild mitral regurgitation is present. 6. Mild tricuspid regurgitation present. 7. There is no evidence of pulmonary hypertension. 8. The right ventricular systolic pressure, as measured by Doppler, is 22.75mmHg. 9. There is no pulmonic regurgitation present. 10. The aortic root size is normal. SPORTS BOOK WRITER: Suni Whitehead RDCS
--- NOTE | 2016-10-19 11:39 | NM ---
EXAMINATION TYPE: NM stress lexiscan cardiolite DATE OF EXAM: 10/19/2016 COMPARISON: NONE HISTORY: Chest pain TECHNIQUE: After the intravenous administration of 11 mCi Tc 99m Sestamibi - Cardiolite resting SPEC T images acquired 45 minutes post injection. The patient received 0.4mg Lexiscan, 26.9 mCi Tc 99m Sestamibi - Stress images obtained [address] injection FINDINGS: Review of stress and rest SPECT images demonstrates no distinct perfusion abnormality. Gated analysi s shows normal wall motion with an estimated left ventricular ejection fraction of 64 %. IMPRESSION: No scintigraphic evidence for reversible ischemia.
[2016-10-19 11:42] VITALS: BP 118/64; PULSE 59; TEMP 96.5
[2016-10-19 12:03] LABS: Anion Gap 6 mmol/L; Blood Urea Nitrogen 10 mg/dL (7-17); CH 30.7; Calcium 8.9 mg/dL (8.4-10.2); Carbon Dioxide 27 mmol/L (22-30); Chloride 107 mmol/L (98-107); Cholesterol 164 mg/dL (<200); Glucose 92 mg/dL (74-99); HCT 32.6 % (34.0-46.0); HDL Cholesterol 47 mg/dL (40-60); HDW 2.99; HGB 10.9 gm/dL (11.4-16.0); MCH 31.4 pg (25.0-35.0); MCHC 33.5 g/dL (31.0-37.0); MCV 93.7 fL (80.0-100.0); Mean Platelet Volume 7.8; Non-African American GFR(MDRD) >60 (>60 ml/min/1.73 sqM); Potassium 4.4 mmol/L (3.5-5.1); RBC 3.48 m/uL (3.80-5.40); RDW 13.5 % (11.5-15.5); Sodium 140 mmol/L (137-145); WBC 4.7 k/uL (3.8-10.6)
[2016-10-19] MEDS: GABAPENTIN 400 MG CAP PO SCH (12:38)
[2016-10-19] MEDS: BACLOFEN 10 MG TAB PO SCH (12:39)
[2016-10-19] MEDS: METOPROLOL TARTRATE 50 MG TAB PO SCH (12:39)
--- NOTE | 2016-10-19 14:20 | EST ---
EXERCISE STRESS AGE: 46 SEX: F HT: 5'8" WT: 160 PROTOCOL: LEXISCAN CARDIOLITE STRESS TEST STAGE: - DURATION OF EXERCISE: - HEART RATE REST: 55 BLOOD PRESSURE REST: 90/62 MAXIMUM HEART RATE ACHIEVED: 75 MAXIMUM BLOOD PRESSURE: 99/53 85% MPHR: - 100% MPHR: - METS: - INDICATIONS: Chest pain. CLINICAL INFORMATION: Baseline EKG revealed normal sinus rhythm, with a precordial nonspecific ST-T changes and nonspecific T-wave flattening. With Lexiscan administration, she did not have any significant symptoms. Blood pressure changed from 90/62 to 99/54, and heart rate went up to 75 beats per minute. EKG remained inconclusive. By EKG criteria, this is inconclusive Lexiscan stress test. The nuclear scan results which are more pertinent, will be reported by the radiologist. DUGLAS / REBECCA: [id number] /
--- NOTE | 2016-10-19 14:30 | P.DS ---
Providers Date of admission: 10/18/16 14:45 Attending physician: Kenny Hameed Consults: 10/18/16 14:45 Consult Physician Urgent Consulting Provider: Ramses Servin Consult Reason/Comments: cp Do you want consulting provider notified?: Yes Primary care physician: Andry Luna [facility] Course: Patient was admitted with chest pain rule out acute coronary syndromes stress test was negative for inducible ischemia patient the was told to have atrial fibrillation but there is no evidence of atrial fibrillation in any of the strips that are available during this hospitalization. Patient will be discharged today was cleared by cardiology patient will be discharged on Prilosec for possibility of gastroesophageal reflux disease contributing to her symptoms. Next PHYSICAL EXAMINATION: GENERAL: The patient is alert and oriented x3, not in any acute distress. Well developed, well nourished. HEENT: Pupils are round and equally reacting to light. EOMI. No scleral icterus. No conjunctival pallor. Normocephalic, atraumatic. No pharyngeal erythema. No thyromegaly. CARDIOVASCULAR: S1 and S2 present. No murmurs, rubs, or gallops. PULMONARY: Chest is clear to auscultation, no wheezing or crackles. ABDOMEN: Soft, nontender, nondistended, normoactive bowel sounds. No palpable organomegaly. MUSCULOSKELETAL: No joint swelling or deformity. EXTREMITIES: No cyanosis, clubbing, or pedal edema. NEUROLOGICAL: Gross neurological examination did not reveal any focal deficits. SKIN: No rashes. #1 chest pain: Patient will be ruled out acute coronary syndromes, Lexiscan stresses is negative for inducible ischemia #2 possible atrial fibrillation patient did not have any A. fib during this hospitalization underwent ablation in the past #3 fibromyalgia #4 osteoarthritis #5 peripheral neuropathy #6 history of DVT in the past not on anti-correlation at this point of time Plan - Discharge Summary New Discharge Prescriptions: New Omeprazole [PriLOSEC] 40 mg PO -BRKFST #14 capsule. No Action PARoxetine HCL [Paxil] 40 mg PO DAILY Ibuprofen [Motrin] 800 mg PO Q8HR PRN PRN Reason: Pain Gabapentin [Neurontin] 800 mg PO TID Digoxin [Lanoxin] 125 mcg PO DAILY fentaNYL [Duragesic] 1 patch TOPICAL Q72H Hydrocodone/Acetaminophen [Hydrocodone/Acetaminophen 10-325] 1 tab PO Q4HR PRN PRN Reason: Pain Zolpidem Tartrate [Ambien] 10 mg PO HS Ipratropium-Albuterol Nebulize [Duoneb 0.5 mg-3 mg/3 ml Soln] 3 ml INHALATION RT-QID PRN PRN Reason: Shortness Of Breath Methocarbamol [Robaxin-750] 750 mg PO QID Levothyroxine Sodium [Synthroid] 25 mcg PO DAILY Fenofibrate 160 mg PO DAILY Albuterol Inhaler [Ventolin Hfa Inhaler] 1 - 2 puff INHALATION RT-Q6H PRN PRN Reason: Shortness Of Breath Amitriptyline HCl [Elavil] 25 mg PO HS #30 tablet Baclofen [Lioresal] 20 mg PO TID #90 tab Discharge Medication List Digoxin [Lanoxin] 125 mcg PO DAILY 06/25/13 [History] Gabapentin [Neurontin] 800 mg PO TID 06/25/13 [History] Ibuprofen [Motrin] 800 mg PO Q8HR PRN 06/25/13 [History] PARoxetine HCL [Paxil] 40 mg PO DAILY 06/25/13 [History] Hydrocodone/Acetaminophen [Hydrocodone/Acetaminophen 10-325] 1 tab PO Q4HR PRN 09/08/13 [History] fentaNYL [Duragesic] 1 patch TOPICAL Q72H 09/08/13 [History] Ipratropium-Albuterol Nebulize [Duoneb 0.5 mg-3 mg/3 ml Soln] 3 ml INHALATION RT -QID PRN 07/06/15 [History] Zolpidem Tartrate [Ambien] 10 mg PO HS 07/06/15 [History] Albuterol Inhaler [Ventolin Hfa Inhaler] 1 - 2 puff INHALATION RT-Q6H PRN [History] Fenofibrate 160 mg PO DAILY 10/08/16 [History] Levothyroxine Sodium [Synthroid] 25 mcg PO DAILY 10/08/16 [History] Methocarbamol [Robaxin-750] 750 mg PO QID 10/08/16 [History] Amitriptyline HCl [Elavil] 25 mg PO HS #30 tablet 10/18/16 [Rx] Baclofen [Lioresal] 20 mg PO TID #90 tab 10/18/16 [Rx] Omeprazole [PriLOSEC] 40 mg PO AC-BRKFST #14 capsule. 10/19/16 [Rx] Follow up Appointment(s)/Referral(s): Andry Luna DO [Primary Care Provider] - 3 Days Discharge Disposition: HOME SELF-CARE
== END 2016-10-19 16:06 | disposition home or self-care (01) ==
LOC: EC 12:56 → 6SEL 14:45
PROVIDERS: ADMIT Hospitalist; ATTEND Hospitalist
DX: R07.89 Other chest pain (principal); R10.13 Epigastric pain; R06.02 Shortness of breath; R07.2 Precordial pain; R61 Generalized hyperhidrosis; M79.7 Fibromyalgia; M19.90 Unspecified osteoarthritis, unspecified site; G62.9 Polyneuropathy, unspecified; Z86.718 Personal history of other venous thrombosis and embolism; I47.1 Supraventricular tachycardia; I48.0 Paroxysmal atrial fibrillation; G89.29 Other chronic pain; M54.9 Dorsalgia, unspecified; F32.9 Major depressive disorder, single episode, unspecified; J42 Unspecified chronic bronchitis; Z79.899 Other long term (current) drug therapy; Z79.891 Long term (current) use of opiate analgesic; Z91.013 Allergy to seafood; Z83.3 Family history of diabetes mellitus; Z82.49 Family history of ischemic heart disease and other diseases of the circulatory system
CPT/HCPCS: 99291; 96375 ×2; 96361 ×2; 96376 ×3; 96365 ×2; 96366 ×2; 36415; 93005; 93017; 93306; 80061; 80053; 80048; 84443; 82550 ×2; 82553 ×2; 80162; 83605; 83735; 84100; 84484 ×2; 85025; 85027; 85049; 85610; 85730 ×2; 81001; 71020; 78452; G0378 ×2; A9500; J1644 ×2; J2785; 99211

== ENCOUNTER → 2016-10-18 | Outpatient (CLI) | payer OTHER ==
[2016-10-18 12:24] VITALS: BP 112/72; PULSE 112; RESP 16; TEMP 98.2
--- NOTE | 2016-10-18 12:46 | P.PN ---
Progress Note - Text Patient returns for followup for chronic neck and back pain with radiation to arms and legs respectively. Patient underwent cervical NICA x 1 in May, which provided some relief for 2-3 weeks' interval. Patient continues on fentanyl patch, baclofen, Robaxin, and amitriptyline medications for pain with good relief. Patient continues to complain of neck and arm numbness/tingling/ shooting pains but these are improved. She has seen a neurosurgeon at [place] who ordered CT of her spine and EMG of her lower extremities secondary to patient losing balance. Patient denies adverse drug effects from medications. Today, pt denies new-onset weakness, bowel/bladder incontinence, or any other signs or symptoms of cauda equina syndrome. There are no signs of acute intoxication, and no indications of medication diversion or overuse. Patient does endorse long-standing weakness in bilateral upper extremities and occasional involuntary twitching in her left thumb. In addition to above, 13-point review of systems is also negative for chest pain , shortness of breath, changes in vision, changes in hearing, new onset weakness , abdominal pain, diarrhea, extreme fatigue, malaise, fever, skin changes, homicidal or suicidal ideation, or bowel or bladder incontinence. Vital Signs: Reviewed in EMR Gen: WDWN, AAOx3, NAD HEENT: NCAT, EOMI, hearing grossly normal Pulm: resp unlabored Abd: soft, NT, ND Neck: supple, trachea midline ROM in flexion cervical spine: reduced ROM in extension cervical spine: reduced Cervical paravertebral tenderness: + Cervical Facet tenderness: ++ R, + L side Spurling's: + bilateral, R >> L Upper extremity: decreased mortgage professional strength bilaterally 4/5 Neuro: CN II-XII grossly intact, muscle strength lower extremities reduced 3+/ 5 bilateral LEs Imaging: Reviewed in EMR Assessment: 1. PLPS lumbar 2. cervical radiculopathy 3. cervical intervertebral herniated discs Plan: 1. Explanation: Opioid and psychological risk scores were reviewed. Diagnoses , prognoses, and multiple treatment options including but not limited to physical therapy, interventional therapies, adjuvant medical therapies, narcotic medication therapies, and surgery were discussed with the patient and all questions were answered to the patient's satisfaction. 2. Opioid agreement: no narcotics prescribed 3. Counseling: The patient was counseled extensively on BODY MASS INDEX, EXERCISE. Specifically, the patient was instructed regarding the importance of obesity and exercise in the context of both chronic pain and overall health. 4. Procedures: none for now, consider caudal NICA with lysis in future 5. Consultations: None 6. Investigations: None 7. Medications: Baclofen refilled at 20 mg TID with two refills and Elavil 25 mg with two refills 8. Disposition: f/u for PQRS measures: 1-Patient's medications are documented in the chart. 2-Tobacco use is negative, counseling NOT given 3-Patient has not had a pneumococcal vaccine. 4-Advanced care planning discussed, patient unable to give. 5-Opioid contract NOT signed with the patient as we do not prescribe medications. 6-Pain positive, follow-up visit or procedure scheduled 7-Patient's blood pressure measured and documented, and within normal limits. 8-Patient's weight was measured, and body mass index within the normal limits. 9-Patient WAS NOT identified as an unhealthy alcohol user.
== END | disposition home or self-care (01) ==
LOC: PNWHC3 11:55
PROVIDERS: ATTEND Anesthesiology
DX: M96.1 Postlaminectomy syndrome, not elsewhere classified (principal); M50.10 Cervical disc disorder with radiculopathy, unspecified cervical region; Z79.899 Other long term (current) drug therapy
CPT/HCPCS: 99211

== ENCOUNTER 2017-02-15 09:48 | Day surgery (SDC) | payer OTHER ==
[2017-02-12 10:51] VITALS: BMI 25.8
[2017-02-15] MEDS ORDERED: LACTATED RINGERS 1,000 ML IV SCH (11:02)
[2017-02-15 11:12] VITALS: TEMP 98.2
[2017-02-15] MEDS ORDERED: LIDOCAINE 1% 20 ML VIAL (10MG/ML) FOR IV START INTRADERMA ONE (11:20)
--- NOTE | 2017-02-15 11:53 | P.PCN ---
Date of Procedure: 02/15/17 Procedure(s) Performed: PREOP DIAGNOSIS: 1- Lumbar postlaminectomy syndrome. 2-lumbar spondylosis with lumbar facet arthropathy without myelopathy 3-cervical radiculopathy POSTOP DIAGNOSIS:= Same as preoperative diagnosis PROCEDURE: Caudal epidural steroid injection with epidurolysis and epidurogram under fluoroscopic guidance ANESTHESIA: Local with 1% lidocaine 3 ml ; IV sedation with Versed 2 mg and fentanyl 200 g EBL: Minimal. PROCEDURE INDICATION: The patient with post-laminectomy syndrome with low back pain and radiculopathy radiating down in both legs, here for a caudal epidural steroid injection with epidurolysis., Patient had good results from the previous caudal epidural with lysis of epidural adhesions, and she had the radiofrequency ablation of the medial branch lumbar area more than 8 years ago, currently she is having low back pain without radiation to the right lower extremity associated with numbness and tingling sensation. PROCEDURE DESCRIPTION: The patient was seen and identified in the preoperative area. Risks, benefits, complications, and alternatives were discussed with the patient. The patient agreed to proceed with the procedure and signed the consent. IV was started, and vital signs were stable. Patient was taken to the OR and time out was completed. The patient was placed in the prone position on procedure table and a pillow was placed under the abdomen to reduce lumbar lordosis. The lumbosacral area was prepped and draped in the usual sterile fashion. Vital signs were closely monitored during the procedure. lateral view and the anterior-posterior plates of the sacrum were identified with infiltration of the area overlying the sacral hiatus with 1% lidocaine .A 17 gauge RK epidural needle was used to advance through the sacral hiatus into the caudal epidural space. Omnipaque 180 dye. 2cc was injected and the position of the needle was verified to be in the midline. A Racz catheter was introduced into the epidural space and was advanced towards the L5-S1 interspace under direct fluoroscopic guidance. Multiple passes were made with the catheter for lysis of epidural adhesions. Kenalog 80 mg with 3ml of preservative free Lidocaine 1% and 5 ml of preservative free normal saline was injected slowly. Additional spread was seen to L4 under fluoroscopy. The needle and the catheter were withdrawn intact. EPIDUROGRAM: Omnipaque 180 mg dye 2 ml was injected with spread of the dye into the caudal epidural space and with spread cutoff at L5 prior to epidurolysis. Post epidurolysis dye 2 ml was injected and spread was seen to L3- 4.There was further spread of the solution together with the dye above the L3 COMPLICATIONS: None. DISPOSITION / PLANS: The patient was placed in a supine position and transferred to the recovery area in a stable condition for observation and was discharged from the recovery room after meeting discharge criteria. Home discharge instructions given to the patient by the staff. The patient was reexamined prior to discharge. The patient will schedule a follow up in the clinic in 2-4 weeks.
[2017-02-15] MEDS ORDERED: IV FLUID CONTINUATION 1,000 ML IV ONE (12:02)
[2017-02-15 12:23] VITALS: RESP 18
--- NOTE | 2017-02-15 12:53 | FL ---
EXAMINATION TYPE: FL guided pain mgmt statistic DATE OF EXAM: 02/15/2017 HISTORY: Flouroscopy time 3 seconds of fluoroscopy provided. IMPRESSION: 1. Fluoroscopy time.
[2017-02-15 13:03] VITALS: BP 99/70; PULSE 78
== END 2017-02-15 13:09 | disposition home or self-care (01) ==
LOC: ORPAIN 09:48
PROVIDERS: ATTEND Specialist
DX: M96.1 Postlaminectomy syndrome, not elsewhere classified (principal); M47.816 Spondylosis without myelopathy or radiculopathy, lumbar region; M54.12 Radiculopathy, cervical region
CPT/HCPCS: 81025; 62264; J2250; J1100; Q9965; J3010; C1894

== ENCOUNTER 2017-03-08 07:42 | Day surgery (SDC) | payer OTHER ==
[2017-03-01 12:55] VITALS: BMI 25.8
[2017-03-08 08:04] VITALS: TEMP 97.5
[2017-03-08] MEDS ORDERED: LIDOCAINE 1% 20 ML VIAL (10MG/ML) FOR IV START INTRADERMA ONE (08:13)
--- NOTE | 2017-03-08 09:09 | P.PCN ---
Date of Procedure: 03/08/17 Anesthesia: MAC (Moderate Conscious sedation with IV Versed and fentanyl) Surgeon: Tiffany Zhao Pathology: none sent Condition: stable Disposition: PACU Description of Procedure: PREOP DIAGNOSIS: Lumbar postlaminectomy syndrome. POSTOP DIAGNOSIS: Lumbar postlaminectomy syndrome. PROCEDURE: Caudal epidural steroid injection with epidurolysis and epidurogram under fluoroscopic guidance ANESTHESIA: Local with 1% lidocaine; IV sedation EBL: Minimal. PROCEDURE INDICATION: The patient with post-laminectomy syndrome with low back pain and radiculopathy radiating down in both legs, here for a caudal epidural steroid injection with epidurolysis. PROCEDURE DESCRIPTION: The patient was seen in the preoperative holding area consent was obtained then he was brought into the procedure room and placed in prone position. Skin was prepped with ChloraPrep and draped in a sterile manner. Lidocaine 1% was used to numb the skin up at the target point that was chosen as follows: The lateral view of fluoroscopy was used to identify the sacral hiatus and then after localizing the skin with lidocaine 1% I used 18- gauge epidural needle with a plastic sheath to go through the sacral hiatus and into the sacral canal and then injected 1 mL of Omnipaque for verification of needle tip position. After that the metal core of the needle was taken out and the plastic sheath was kept in the sacral canal. Then Racz catheter was introduced through the plastic sheath and into the epidural space at the sacral canal using the AP view of fluoroscopy up to L5-S1 level then I injected 2 MLS of Omnipaque which showed limited spread in the epidural space and after few back and forth movements of the Racz catheter I was able to introduce the needle one level higher to the L4 5 level and then there was more spread of the Omnipaque after injecting 3 more mils of Omnipaque on the AP view of fluoroscopy. After that I injected 40 mg of Kenalog +2 MLS of Marcaine 0.25% + 7 MLS of preservative-free normal saline to a total volume of 10 MLS in the epidural space. Patient tolerated procedure well. COMPLICATIONS: None. DISPOSITION / PLANS: The patient was placed in a supine position and transferred to the recovery area in a stable condition for observation and was discharged from the recovery room after meeting discharge criteria. Home discharge instructions given to the patient by the staff. The patient was reexamined prior to discharge. The patient will schedule a follow up in the clinic in 2-4 weeks.
[2017-03-08] MEDS ORDERED: LACTATED RINGERS 1,000 ML IV ONE (09:16)
[2017-03-08 09:48] VITALS: BP 110/71; PULSE 79; RESP 18
--- NOTE | 2017-03-08 10:51 | FL ---
Fluoroscopy HISTORY: Pain 44 seconds fluoroscopy time supplied to the referring clinician. 3 intraoperative C-arm images docum ent the procedure. See dictated report from anesthesia.
== END 2017-03-08 09:55 | disposition home or self-care (01) ==
LOC: ORPAIN 07:42
PROVIDERS: ATTEND Anesthesiology
DX: M96.1 Postlaminectomy syndrome, not elsewhere classified (principal); M47.816 Spondylosis without myelopathy or radiculopathy, lumbar region; M54.12 Radiculopathy, cervical region; I48.91 Unspecified atrial fibrillation; I25.10 Atherosclerotic heart disease of native coronary artery without angina pectoris; Z86.718 Personal history of other venous thrombosis and embolism; E03.9 Hypothyroidism, unspecified; Z91.013 Allergy to seafood
CPT/HCPCS: 81025; 62264; J2250; J3301; Q9965; J3010; C1894; 99152

== ENCOUNTER 2017-03-20 23:39 | Emergency (ER) | payer OTHER ==
[2017-03-20 23:47] VITALS: RESP 18; TEMP 98.1
[2017-03-21] MEDS ORDERED: KETOROLAC 30 MG/ML 1 ML VIAL IM STA (00:15)
--- NOTE | 2017-03-21 00:16 | ED ---
Back Pain HPI - General Chief Complaint: Back Pain/Injury Stated Complaint: Back Pain Time Seen by Provider: 03/20/17 23:55 Source: patient, RN notes reviewed Limitations: physical limitation - History of Present Illness Initial Comments: This is a 47-year-old female who presents to the emergency department with chief complaint of acute on chronic back pain. Patient states that she has an extensive history that consists of 14 back surgeries. She states that she sees a pain clinic and uses fentanyl patches as well as Cumming. She placed a Fentanyl patch yesterday. She took 3 Cumming today. Patient denies any recent falls or injuries. She states that at approximately 9:30 this evening she got up to get a drink and when she came back to lie back down she began experiencing a shooting/searing pain of her entire spine. She reports radiation of pain to her hips. She states she has numbness and tingling of bilateral lower extremities but that this is normal for her. She denies saddle paresthesias, loss of bladder or bowel function or IV drug use. - Related Data Home Medications Medication Instructions Recorded Confirmed Gabapentin [Neurontin] 800 mg PO TID 06/25/13 03/01/17 Ibuprofen [Motrin] 800 mg PO Q8HR PRN 06/25/13 03/01/17 PARoxetine HCL [Paxil] 40 mg PO DAILY 06/25/13 03/01/17 Hydrocodone/Acetaminophen 1 tab PO Q4HR PRN 09/08/13 03/01/17 [Hydrocodone/Acetaminophen 10-325] fentaNYL [Duragesic] 1 patch TOPICAL Q72H 09/08/13 03/08/17 Ipratropium-Albuterol Nebulize 3 ml INHALATION RT-QID PRN 07/06/15 03/08/17 [Duoneb 0.5 mg-3 mg/3 ml Soln] Zolpidem Tartrate [Ambien] 10 mg PO HS 07/06/15 03/08/17 Albuterol Inhaler [Ventolin Hfa 1 - 2 puff INHALATION RT-Q6H PRN 10/08/16 Inhaler] Fenofibrate 160 mg PO DAILY 10/08/16 03/08/17 Levothyroxine Sodium [Synthroid] 25 mcg PO DAILY 10/08/16 03/08/17 Methocarbamol [Robaxin-750] 750 mg PO QID 10/08/16 03/01/17 Diazepam [Valium] 10 mg PO DAILY PRN 02/12/17 03/08/17 Digoxin [Lanoxin] 125 mcg PO DAILY 02/12/17 03/08/17 Previous Rx's Medication Instructions Recorded Omeprazole [PriLOSEC] 40 mg PO KIM-BRKFST #14 capsule. 10/19/16 Baclofen [Lioresal] 20 mg PO TID #90 tab 01/10/17 methylPREDNISolone Dose Pack 4 mg PO DIRECTED #21 package 03/21/17 [Medrol Dose Pack] Allergies Allergy/AdvReac Type Severity Reaction Status Date / Time shellfish derived [Shellfish] Allergy Anaphylaxis Verified 03/20/17 23:47 Review of Systems ROS Statement: Those systems with pertinent positive or pertinent negative responses have been documented in the HPI. ROS Other: All systems not noted in ROS Statement are negative. Past Medical History Past Medical History: Atrial Fibrillation, Chest Pain / Angina, Deep Vein Thrombosis (DVT), Fibromyalgia, Musculoskeletal Disorder, Osteoarthritis (OA), Respiratory Disorder, Supraventricular Tachycardia (SVT), Syncope Additional Past Medical History / Comment(s): chronic bronchitis. chronic back pain ddd,herniated disc migarines, hx. kidney stones, permanent wheeze, "born with heart defect.past svt-had ablation,peripheral neuropathy. History of Any Multi-Drug Resistant Organisms: None Reported Past Surgical History: Back Surgery, Cardiac Ablation, Cholecystectomy, Orthopedic Surgery Additional Past Surgical History / Comment(s): 14 back surgery's., geo knee arthroscopy, PAIN CLINIC PROCEDURES, past cardiac ablation for svt and ep study/ ablation for afib, Past Anesthesia/Blood Transfusion Reactions: No Reported Reaction Past Psychological History: Depression Smoking Status: Never smoker Past Alcohol Use History: None Reported Past Drug Use History: None Reported - Past Family History Mother Family Medical History: No Reported History Brother(s) Family Medical History: Cancer Additional Family Medical History / Comment(s): both brothers when they reached age 39. one from brain cancer and the other from complications from a congential heart problem. Father Family Medical History: Diabetes Mellitus Additional Family Medical History / Comment(s): pt's mother has hypertension, kidney stones, endometriosis General Exam - General Exam Comments Initial Comments: General: Awake and alert, well-developed; in no apparent distress. Mother is at bedside. Patient is tearful, lying on her side on ED stretcher. HEENT: Head atraumatic, normocephalic. Pupils are equal, round and reactive to light. Extraocular movements intact. Oropharynx moist without erythema or exudate. Neck: Supple. Normal ROM. Cardiovascular: Regular rate and rhythm. No murmurs, rubs or gallops. Chest symmetrical. Respiratory: Lungs clear to auscultation bilaterally. No wheezes, rales or rhonchi. Normal respiratory effort with no use of accessory muscles. Musculoskeletal: Patient flinches with touch to any part of her back or hips. Sensation is intact. Pedal and posterior tibial pulses are 2+ equal and palpable bilaterally. Skin: [place], warm and dry without rashes or lesions. Neurological: Alert and oriented x3. CN II-XII grossly intact. Speech is fluent and answers are appropriate. No focal neuro deficits. Limitations: physical limitation Course Vital Signs 03/20/17 23:43 Temperature 98.1 F Pulse Rate 93 Respiratory 18 Rate Blood Pressure 110/69 O2 Sat by Pulse 98 Oximetry Medical Decision Making - Medical Decision Making This is a 47-year-old female who presents to the emergency department with chief complaint of acute on chronic back pain. Patient is currently taking fentanyl patches and Cumming for pain relief. Patient states that she began experiencing exasperation of her back pain this evening. She states that involves her entire spine and radiates into her hips. Denies saddle paresthesias or loss of bladder or bowel function. X-ray of cervical, lumbar and thoracic spine revealed no acute abnormalities. Patient given Toradol and Decadron while in the emergency department. Vital signs are stable and she is in no acute distress. She will be discharged home. Recommended follow-up with her primary care provider 1-2 days. Patient is in agreement with plan and voices understanding. All questions were answered. - Radiology Data Radiology results: report reviewed X-ray thoracic spine impression: Negative thoracic spine exam. X-ray lumbar spine impression: Mild spondylosis at L4 to L5. No fracture. No change. X-ray cervical spine impression: Negative cervical spine exam. Disposition Clinical Impression: Acute exacerbation of chronic low back pain Disposition: HOME SELF-CARE Condition: Good Instructions: Acute Low Back Pain (ED), Chronic Back Pain (ED) Additional Instructions: Please follow up with primary care provider within 1-2 days. Return to emergency department if symptoms should worsen or any concerns arise. Prescriptions: methylPREDNISolone Dose Pack [Medrol Dose Pack] 4 mg PO DIRECTED #21 package Referrals: Andry Luna DO [Primary Care Provider] - 1-2 days Time of Disposition: 01:16
--- NOTE | 2017-03-21 00:53 | XR ---
EXAMINATION TYPE: XR cervical spine comp DATE OF EXAM: 03/21/2017 COMPARISON: NONE HISTORY: Neck pain TECHNIQUE: 5 views FINDINGS: Cervical vertebra have fairly normal alignment. Posterior elements are intact. Atlantoaxial facet joint is normal. There are no cervical ribs. IMPRESSION: Negative cervical spine exam.
--- NOTE | 2017-03-21 01:01 | XR ---
EXAMINATION TYPE: XR lumbar spine 2 or 3V DATE OF EXAM: 03/21/2017 COMPARISON: 04/25/2016 HISTORY: Back pain TECHNIQUE: 3 views FINDINGS: There is a mild dextroscoliosis. There is mild narrowing at L4-5 disc. There is no compress ion fracture. Sacroiliac joints appear intact. IMPRESSION: Mild spondylosis at L4-5. No fracture. No change.
--- NOTE | 2017-03-21 01:02 | XR ---
EXAMINATION TYPE: XR thoracic spine 2V DATE OF EXAM: 03/21/2017 COMPARISON: NONE HISTORY: Pain TECHNIQUE: 3 views FINDINGS: Thoracic vertebra have fairly normal alignment. Posterior elements are intact. There is no paraspinal mass. I see no compression fracture. IMPRESSION: Negative thoracic spine exam.
[2017-03-21] MEDS ORDERED: DEXAMETHASONE SOD PHOSPHATE 10 MG/ML 1 ML VIAL IM STA (01:15)
[2017-03-21 01:22] VITALS: BP 96/50; PULSE 73
== END 2017-03-21 01:30 | disposition home or self-care (01) ==
LOC: EC 23:39
DX: G89.29 Other chronic pain (principal); M54.5 Low back pain; M47.816 Spondylosis without myelopathy or radiculopathy, lumbar region; M25.551 Pain in right hip; M25.552 Pain in left hip; I48.91 Unspecified atrial fibrillation; M79.7 Fibromyalgia; F32.9 Major depressive disorder, single episode, unspecified; G62.9 Polyneuropathy, unspecified; Z79.891 Long term (current) use of opiate analgesic; Z91.013 Allergy to seafood; Z98.890 Other specified postprocedural states; Z79.899 Other long term (current) drug therapy
CPT/HCPCS: 72070; 72050; 72100; 99283; 96372 ×2; J1100; J1885

== ENCOUNTER → 2017-04-02 | Outpatient (CLI) | payer OTHER ==
[2017-04-02 12:56] VITALS: BP 102/60; PULSE 104; RESP 16; TEMP 98.7
--- NOTE | 2017-04-02 13:35 | P.PN ---
Subjective Progress Note Date: 04/02/17 This is follow-up visit for this patient with a history of severe and chronic low back pain secondary to lumbar degenerative disc disease, lumbar facet arthropathy, we have done, and failed back surgery syndrome lumbar. We have done a caudal epidural steroid injection with lysis of epidural adhesions x2 , she get good pain relief patient currently on fentanyl patch 100 g every 72 hours , Robaxin 750 mg every 6 hours , Neurontin 800 mg 3 times a day , Motrin 800 mg 3 times a day when necessary , Drake 10/325 every 6 hours (prescription refill from her primary care ), and also has severe muscle spasm at night and we cannot prescription for Valium 10 mg twice a day when necessary Patient denies any side effects of the medication, denies excessive drowsiness or sleepiness, denies suicidal ideation, and reports that the current pain medication is helping To control the pain and improve activity of daily living . Patient denies any motor or sensory deficit, denies change in bowel movement or urination, patient denies any fever or night sweats and patient here for follow-up visit and medication refill Objective - Vital Signs Vital signs: Vital Signs Temp 98.7 F 04/02/17 12:51 Pulse 104 H 04/02/17 12:51 Resp 16 04/02/17 12:51 BP 102/60 04/02/17 12:51 Pulse Ox 95 04/02/17 12:51 Intake & Output 04/01/17 04/02/17 04/02/17 18:59 06:59 18:59 Weight 77.111 kg - Exam Physical Examinations : 1-Constitutiona : Cooperative , not in acute distress . 2-HEENT : nech ; supple , no Lymphadenopathy , normal thyroid size . eyes : no ptosis , no icterus, no photophobia . ENT : normal of hearing , normal oropharynx , no Thrush . 3- Respiratory : Chest clear to auscultations Bilaterally , no wheezing , no Rhonchi . 4- Cardiovascular : regular rate and rhythem , S1 , S2 , no S3 , no S4. 5- Gastrointestinal : abdomen soft no tenderness , bowel sounds positive all four quadrents , no organomegally . 6- Genitourinary : Defferred . 7- neurologic : Cranial nerve II to XII intact , no focal neurological deffecit . 8-psychatric : alert , oriented X 3 , appropriate affect , intact judgment and insight . 9-Lymphatic : no Lymphadenopathy . 10- musculoskeltal : , Lumber spine = normal moter stegnth lower extremities ,thigh and legs .5/5 deep tendon reflexes : normal Knee Jerk , normal ankle Jerk . lumber facet Loading Test positive strait leg raising test positive at 30 degree Right , positve at 30 degree Left Fabere test positive Right and positive Left Assessment and Plan Plan: Assessment and plan= chronic low back pain secondary to lumbar degenerative disc disease , lumbar spondylosis with lumbar facet arthropathy , failed back surgery syndrome and lumbar area chronic and current use of high-risk medication (opioids) Patient had good results after that, caudal epidural steroid injection with lysis of epidural adhesions, she denies any side effect of the medications Prescription refill for Valium 10 mg every 8-12 hours when necessary dispense 30 with 2 refills , given and she will follow up in the pain clinic in 3 months ( Patient underwent radiofrequency ablation of the lumbar medial branches, was done 8 years ago ) Patient will continue to get prescription refills from her primary care for fentanyl patch 100 g every 72 hours, Neurontin 800 mg 3 times a day, Motrin 800 mg 3 times a day, Drake 10/325 every 6 hours Time with Patient: Less than 30
== END | disposition home or self-care (01) ==
LOC: PNWHC3 12:16
PROVIDERS: ATTEND Specialist
DX: G89.29 Other chronic pain (principal); M51.36 Other intervertebral disc degeneration, lumbar region; M47.816 Spondylosis without myelopathy or radiculopathy, lumbar region; M46.96 Unspecified inflammatory spondylopathy, lumbar region; Z79.891 Long term (current) use of opiate analgesic; Z79.899 Other long term (current) drug therapy; Z79.1 Long term (current) use of non-steroidal anti-inflammatories (NSAID)
CPT/HCPCS: 99211

== ENCOUNTER 2017-05-05 14:53 | Emergency (ER) | payer OTHER ==
[2017-05-05] MEDS ORDERED: KETOROLAC 30 MG/ML 1 ML VIAL IM STA (15:17)
[2017-05-05] MEDS ORDERED: DIAZEPAM 5 MG/ML 2 ML INJ IM ONE (15:17)
[2017-05-05] MEDS ORDERED: MORPHINE SULFATE/PF 10MG/10ML VL IVP STA ×2 (15:18→15:20)
[2017-05-05] MEDS ORDERED: DEXAMETHASONE SOD PHOSPHATE 10 MG/ML 1 ML VIAL IV STA (15:19)
[2017-05-05] MEDS ORDERED: KETOROLAC 30 MG/ML 1 ML VIAL IVP STA (15:19)
[2017-05-05] MEDS ORDERED: DIAZEPAM 5 MG/ML 2 ML INJ IVP STA (15:20)
--- NOTE | 2017-05-05 15:27 | ED ---
General Adult HPI - General Chief complaint: Back Pain/Injury Stated complaint: Back pain Time Seen by Provider: 05/05/17 14:58 Source: patient, RN notes reviewed, old records reviewed Mode of arrival: wheelchair Limitations: no limitations - History of Present Illness Initial comments: 47-year-old female history of chronic back pain presents with worsening pain. Patient normally has fentanyl patch, [place] and Robaxin for pain. She has had multiple lumbar spinal surgeries. She follows with the pain clinic. She is scheduled for some outpatient imaging which she has been unable to complete secondary to family issues. She states that yesterday evening she had worsening numbness, she does have numbness at baseline in her bilateral lower extremities, she slipped from the toilet with no injury. Pain is primarily lumbar spine and bilateral lower extremities. No new paresthesias, no difficulty urinating, no loss of stool. No fever or chills. Patient has no other complaints. - Related Data Home Medications Medication Instructions Recorded Confirmed Gabapentin [Neurontin] 800 mg PO TID 06/25/13 05/05/17 Ibuprofen [Motrin] 800 mg PO Q8HR PRN 06/25/13 05/05/17 PARoxetine HCL [Paxil] 40 mg PO DAILY 06/25/13 05/05/17 Hydrocodone/Acetaminophen 1 tab PO Q4HR PRN 09/08/13 05/05/17 [Hydrocodone/Acetaminophen 10-325] fentaNYL [Duragesic] 1 patch TOPICAL Q72H 09/08/13 05/05/17 Ipratropium-Albuterol Nebulize 3 ml INHALATION RT-QID PRN 07/06/15 05/05/17 [Duoneb 0.5 mg-3 mg/3 ml Soln] Zolpidem Tartrate [Ambien] 10 mg PO HS 07/06/15 05/05/17 Albuterol Inhaler [Ventolin Hfa 1 - 2 puff INHALATION RT-Q6H PRN 10/08/16 Inhaler] Fenofibrate 160 mg PO DAILY 10/08/16 05/05/17 Levothyroxine Sodium [Synthroid] 25 mcg PO DAILY 10/08/16 05/05/17 Methocarbamol [Robaxin-750] 750 mg PO QID 10/08/16 05/05/17 Diazepam [Valium] 10 mg PO BID 02/12/17 05/05/17 Digoxin [Lanoxin] 125 mcg PO DAILY 02/12/17 05/05/17 Amitriptyline HCl [Elavil] 20 mg PO HS 05/05/17 05/05/17 Cefdinir [Omnicef] 300 mg PO Q12HR 05/05/17 05/05/17 Previous Rx's Medication Instructions Recorded Omeprazole [PriLOSEC] 40 mg PO AC-BRKFST #14 capsule. 10/19/16 Allergies Allergy/AdvReac Type Severity Reaction Status Date / Time shellfish derived [Shellfish] Allergy Anaphylaxis Verified 05/05/17 15:33 Review of Systems ROS Statement: Those systems with pertinent positive or pertinent negative responses have been documented in the HPI. ROS Other: All systems not noted in ROS Statement are negative. Past Medical History Past Medical History: Atrial Fibrillation, Chest Pain / Angina, Deep Vein Thrombosis (DVT), Fibromyalgia, Musculoskeletal Disorder, Osteoarthritis (OA), Respiratory Disorder, Supraventricular Tachycardia (SVT), Syncope Additional Past Medical History / Comment(s): chronic bronchitis. chronic back pain ddd,herniated disc migarines, hx. kidney stones, permanent wheeze, "born with heart defect.past svt-had ablation,peripheral neuropathy. History of Any Multi-Drug Resistant Organisms: None Reported Past Surgical History: Back Surgery, Cardiac Ablation, Cholecystectomy, Orthopedic Surgery Additional Past Surgical History / Comment(s): 14 back surgery's., geo knee arthroscopy, PAIN CLINIC PROCEDURES, past cardiac ablation for svt and ep study/ ablation for afib, Past Anesthesia/Blood Transfusion Reactions: No Reported Reaction Past Psychological History: Depression Smoking Status: Never smoker Past Alcohol Use History: None Reported Past Drug Use History: None Reported - Past Family History Mother Family Medical History: No Reported History Brother(s) Family Medical History: Cancer Additional Family Medical History / Comment(s): both brothers when they reached age 39. one from brain cancer and the other from complications from a congential heart problem. Father Family Medical History: Diabetes Mellitus Additional Family Medical History / Comment(s): pt's mother has hypertension, kidney stones, endometriosis General Exam Limitations: no limitations General appearance: alert, in no apparent distress Head exam: Present: atraumatic, normocephalic Eye exam: Present: normal appearance, PERRL, EOMI ENT exam: Present: normal exam Neck exam: Present: normal inspection. Absent: tenderness, meningismus Respiratory exam: Present: normal lung sounds bilaterally, respiratory distress Cardiovascular Exam: Present: regular rate, normal rhythm GI/Abdominal exam: Present: soft. Absent: distended, tenderness, guarding Extremities exam: Present: normal inspection, normal capillary refill. Absent: pedal edema, calf tenderness Back exam: Present: tenderness, paraspinal tenderness, vertebral tenderness Neurological exam: Present: alert, oriented X3, CN II-XII intact, motor sensory deficit. Absent: reflexes normal (Patient is hyperreflexic bilaterally, no saddle anesthesia) Skin exam: Present: warm, dry, intact. Absent: cyanosis, diaphoretic Course Vital Signs 05/05/17 14:54 Temperature 98.3 F Pulse Rate 111 H Respiratory 20 Rate Blood Pressure 138/61 O2 Sat by Pulse 96 Oximetry Medical Decision Making - Medical Decision Making 47-year-old female presenting with worsening low back and lower extremity pain. Patient is somewhat hyperreflexic, although I have seen this patient in the past that she does have baseline hyporeflexia in the lower extremities. No alarming features on history or physical exam. She has good outpatient follow- up with both neurosurgery and pain management. She is given IV pain medication , and on reevaluation, she is feeling much better pain significantly improved. She is comfortable with discharge and outpatient follow-up. Disposition Clinical Impression: Chronic back pain Disposition: HOME SELF-CARE Condition: Fair Instructions: Chronic Back Pain (ED) Referrals: Andry Luna DO [Primary Care Provider] - 1-2 days Ava Dixon MD [STAFF PHYSICIAN] - 1-2 days Time of Disposition: 16:29
[2017-05-05 16:45] VITALS: BP 99/55; PULSE 78; RESP 16; TEMP 97.3
== END 2017-05-05 16:45 | disposition home or self-care (01) ==
LOC: EC 14:53
DX: G89.29 Other chronic pain (principal); M54.5 Low back pain; I48.91 Unspecified atrial fibrillation; M79.7 Fibromyalgia; M19.90 Unspecified osteoarthritis, unspecified site; F32.9 Major depressive disorder, single episode, unspecified; Z79.891 Long term (current) use of opiate analgesic; Z79.899 Other long term (current) drug therapy; Z91.013 Allergy to seafood; Z53.8 Procedure and treatment not carried out for other reasons; Z98.890 Other specified postprocedural states
CPT/HCPCS: 99284; 96374; 96375 ×3; J1100; J3360; J1885; J2270

== ENCOUNTER → 2017-06-27 | Outpatient (CLI) | payer OTHER ==
[2017-06-27 13:30] VITALS: BP 121/72; PULSE 118; RESP 18
--- NOTE | 2017-06-27 13:52 | P.PAINPG ---
Subjective Progress Note Date: 06/27/17 Principal diagnosis: Postlaminectomy syndrome, myofascial pain syndrome This is a pleasant 47-year-old woman with a history of previous back surgery and intractable low back pain who presents today for reevaluation. She is under medical management from her primary care physician. She received opiates from a physician. She uses Robaxin as well as Valium to help with her back spasms. She is previous event in physical therapy and reports this was extremely helpful however it is no longer covered under her insurance per her report. She therefore does some minimal stretching at home and otherwise has significant back pain. She reports she does get some benefit from heat and ice. Objective - Vital Signs Vital signs: Vital Signs Temp Pulse 118 H 06/27/17 13:22 Resp 18 06/27/17 13:22 BP 121/72 06/27/17 13:22 Pulse Ox 95 06/27/17 13:22 Intake & Output 06/26/17 06/27/17 06/27/17 18:59 06:59 18:59 Weight 77.111 kg - Exam Gen.: She is alert and oriented. She demonstrates no focal motor deficits. She is not sedated individual questions properly. Muscle skeletal: She does resume focal motor deficits. She has normal strength in her lower extremity. She does have severe trigger points in her lumbosacral spine. These are quite palpable and sensitive. Neurologic: She has no focal sensory deficits. Assessment and Plan (1) Post laminectomy syndrome Current Visit: Yes Status: Acute Code(s): M96.1 - POSTLAMINECTOMY SYNDROME, NOT ELSEWHERE CLASSIFIED SNOMED Code(s): 80729317 (2) Myofascial pain syndrome Current Visit: Yes Status: Acute Code(s): M79.1 - MYALGIA SNOMED Code(s): 543003032 Plan: 1. Medical: The patient will continue to take medications as prescribed by her primary care physician. I informed her that the combination of opiates and benzodiazepines was dangerous. She will therefore wean off of her benzodiazepines. She will start this by taking one 10 mg tablet of Valium at night. This will happen for 2 weeks. She'll then take 1 tablet every other night for 2 weeks. She'll then discontinue this medicine. 2. Interventional: We'll schedule patient for lumbar trigger point injections. 3. Referrals: I will send the patient for physical therapy on her lumbar spine and hopefully help alleviate her myofascial pain. PQRS Measure Charge Sheet Measure #130: Documentation of Current Meds in Medical Chart: Patient not eligible for medications to be documented Measure #226: Tobacco Use: Screen & Cessation Intervention: Pt not a tobacco user Measure #111: Pneumonia Vaccination: Pneumococcal vaccine NOT administered or previously given Measure #47: Advance Care Plan: Advance care planning discussed & documented, pt chose/unable to give Measure #412: Opioid Treatment Agreement: No documentation of signed opioid treatment agreement Measure #408: Opioid Therapy Follow-up Evaluation: Patient had NO f/u eval minimum every 3 months during opioid therapy Measure #317: Preventitive Care & Scrn High Bld Press & F/U: Normal blood pressure, f/u not required Measure #128: Body Mass Index (BMI) Screening & Follow-up: BMI documented within normal parameters Measure #131: Pain Assessment & Follow-up: Pain positive & plan documented Measure #431: Unhealthy Alcohol Use Preventative Care & Scrn: Patient not identified as an unhealthy alcohol user PQRS Narrative: Smoking Status Never smoker Do You Want the Pneumonia No Vaccine AT THIS TIME? Blood Pressure 121/72 Pain Intensity [Lower Back] 7 Hx Alcohol Use (MH) No Home Medications: Ambulatory Orders Gabapentin [Neurontin] 800 mg PO TID 06/25/13 Ibuprofen [Motrin] 800 mg PO Q8HR PRN 06/25/13 PARoxetine HCL [Paxil] 40 mg PO DAILY 06/25/13 Hydrocodone/Acetaminophen [Hydrocodone/Acetaminophen 10-325] 1 tab PO Q4HR PRN 09/08/13 fentaNYL [Duragesic] 1 patch TOPICAL Q72H 09/08/13 Ipratropium-Albuterol Nebulize [Duoneb 0.5 mg-3 mg/3 ml Soln] 3 ml INHALATION RT -QID PRN 07/06/15 Zolpidem Tartrate [Ambien] 10 mg PO HS 07/06/15 Albuterol Inhaler [Ventolin Hfa Inhaler] 1 - 2 puff INHALATION RT-Q6H PRN Fenofibrate 160 mg PO DAILY 10/08/16 Levothyroxine Sodium [Synthroid] 25 mcg PO DAILY 10/08/16 Methocarbamol [Robaxin-750] 750 mg PO QID 10/08/16 Omeprazole [PriLOSEC] 40 mg PO RUSTYKFSYuniel #14 capsule. 10/19/16 Digoxin [Lanoxin] 125 mcg PO DAILY 02/12/17 Cefdinir [Omnicef] 300 mg PO Q12HR 05/05/17 Amitriptyline HCl [Elavil] 10 mg PO HS #30 tab 06/27/17 Diazepam [Valium] 10 mg PO BID #30 tablet 06/27/17 Controlled Substance Measures - Controlled Substance Measures Is patient prescribed a controlled substance at discharge?: Yes If prescribed controlled substance>3 days was MAPS reviewed?: Yes When asked, does pt state using other controlled substances?: Yes
== END | disposition home or self-care (01) ==
LOC: PNWHC3 12:29
PROVIDERS: ATTEND Pain Medicine Pain Medicine
DX: M96.1 Postlaminectomy syndrome, not elsewhere classified (principal); M79.1 Myalgia; Z79.899 Other long term (current) drug therapy; Z79.1 Long term (current) use of non-steroidal anti-inflammatories (NSAID); Z79.891 Long term (current) use of opiate analgesic
CPT/HCPCS: 99211

== ENCOUNTER 2017-08-06 21:03 | Emergency (ER) | payer OTHER ==
[2017-08-06 21:18] VITALS: BP 109/74; RESP 18; TEMP 98.2
[2017-08-06] MEDS ORDERED: DIAZEPAM 5 MG/ML 2 ML INJ IM STA (21:51)
--- NOTE | 2017-08-06 21:55 | ED ---
Fall HPI - General Chief Complaint: Fall Stated Complaint: fall/back pain Time Seen by Provider: 08/06/17 21:19 Source: patient, RN notes reviewed Mode of arrival: ambulatory Limitations: no limitations - History of Present Illness Initial Comments: This a 47-year-old female presents to the emergency Department with chief complaint of fall. Patient has chronic pain and chronic back pain. She states that she gets unsteady at times and states that she was in the shower felt like her legs were giving out and states that she fell backwards striking her back on the bathtub and striking her head on the toilet. Patient states she did not lose conscious. She does complain of headache. She denies any bowel bladder incontinence or retention. She normally has pain and read some her back. Patient is on chronic opiates, has injections in her back. Patient has no abdominal pain denies any hip pain, upper extremity injuries. - Related Data Home Medications Medication Instructions Recorded Confirmed Gabapentin [Neurontin] 800 mg PO TID 06/25/13 07/16/17 Ibuprofen [Motrin] 800 mg PO Q8HR PRN 06/25/13 07/16/17 PARoxetine HCL [Paxil] 40 mg PO DAILY 06/25/13 07/16/17 Hydrocodone/Acetaminophen 1 tab PO Q4HR PRN 09/08/13 07/16/17 [Hydrocodone/Acetaminophen 10-325] fentaNYL [Duragesic] 1 patch TOPICAL Q72H 09/08/13 07/16/17 Ipratropium-Albuterol Nebulize 3 ml INHALATION RT-QID PRN 07/06/15 07/16/17 [Duoneb 0.5 mg-3 mg/3 ml Soln] Zolpidem Tartrate [Ambien] 10 mg PO HS 07/06/15 07/16/17 Albuterol Inhaler [Ventolin Hfa 1 - 2 puff INHALATION RT-Q6H PRN 10/08/16 Inhaler] Fenofibrate 160 mg PO DAILY 10/08/16 07/16/17 Levothyroxine Sodium [Synthroid] 25 mcg PO DAILY 10/08/16 07/16/17 Methocarbamol [Robaxin-750] 750 mg PO QID 10/08/16 07/16/17 Digoxin [Lanoxin] 125 mcg PO DAILY 02/12/17 07/16/17 Cefdinir [Omnicef] 300 mg PO Q12HR 05/05/17 07/16/17 Previous Rx's Medication Instructions Recorded Omeprazole [PriLOSEC] 40 mg PO AC-BRKFST #14 capsule. 10/19/16 Amitriptyline HCl [Elavil] 10 mg PO HS #30 tab 06/27/17 Diazepam [Valium] 10 mg PO BID #30 tablet 06/27/17 Allergies Allergy/AdvReac Type Severity Reaction Status Date / Time shellfish derived [Shellfish] Allergy Anaphylaxis Verified 08/06/17 21:18 Review of Systems ROS Statement: Those systems with pertinent positive or pertinent negative responses have been documented in the HPI. ROS Other: All systems not noted in ROS Statement are negative. Past Medical History Past Medical History: Atrial Fibrillation, Chest Pain / Angina, Deep Vein Thrombosis (DVT), Fibromyalgia, Musculoskeletal Disorder, Osteoarthritis (OA), Respiratory Disorder, Supraventricular Tachycardia (SVT), Syncope Additional Past Medical History / Comment(s): chronic bronchitis. chronic back pain ddd,herniated disc migarines, hx. kidney stones, permanent wheeze, "born with heart defect.past svt;peripheral neuropathy. History of Any Multi-Drug Resistant Organisms: None Reported Past Surgical History: Back Surgery, Cardiac Ablation, Cholecystectomy, Orthopedic Surgery Additional Past Surgical History / Comment(s): 14 back surgery's., geo knee arthroscopy, PAIN CLINIC PROCEDURES, Past Anesthesia/Blood Transfusion Reactions: No Reported Reaction Past Psychological History: Depression Smoking Status: Never smoker Past Alcohol Use History: None Reported Past Drug Use History: None Reported - Past Family History Mother Family Medical History: No Reported History Brother(s) Family Medical History: Cancer Additional Family Medical History / Comment(s): both brothers when they reached age 39. one from brain cancer and the other from complications from a congential heart problem. Father Family Medical History: Diabetes Mellitus Additional Family Medical History / Comment(s): pt's mother has hypertension, kidney stones, endometriosis General Exam Limitations: no limitations General appearance: alert, in no apparent distress Head exam: Present: atraumatic, normocephalic, normal inspection Neck exam: Present: normal inspection. Absent: tenderness, meningismus, lymphadenopathy Respiratory exam: Present: normal lung sounds bilaterally. Absent: respiratory distress, wheezes, rales, rhonchi, stridor Cardiovascular Exam: Present: regular rate, normal rhythm, normal heart sounds. Absent: systolic murmur, diastolic murmur, rubs, gallop, clicks Extremities exam: Present: normal inspection, full ROM, normal capillary refill. Absent: tenderness, pedal edema, joint swelling, calf tenderness Back exam: Present: normal inspection (Old surgical scar), full ROM, tenderness (Exaggerated pain), paraspinal tenderness, vertebral tenderness Neurological exam: Present: alert, oriented X3, CN II-XII intact, reflexes normal. Absent: motor sensory deficit Skin exam: Present: warm, dry, intact, normal color. Absent: rash Course Vital Signs 08/06/17 21:13 Temperature 98.2 F Pulse Rate 106 H Respiratory 18 Rate Blood Pressure 109/74 O2 Sat by Pulse 96 Oximetry Medical Decision Making - Medical Decision Making 47-year-old female presented for a fall with complaints of back and head pain. Patient had CT of her brain and C-spine which shows no acute findings. Patient has chronic cervical degenerative changes x-rays of lumbar spine reviewed by radiologist no acute fracture. Patient was given a shot of Valium in the emergency Department for her muscle spasms. Patient will be discharged at this time with follow-up with pain management physician. Disposition Clinical Impression: Fall, Chronic back pain, Head injury Disposition: HOME SELF-CARE Condition: Stable Instructions: Head Injury (ED) Additional Instructions: Please return to the Emergency Department if symptoms worsen or any other concerns. Is patient prescribed a controlled substance at d/c from ED?: No Referrals: Andry Luna DO [Primary Care Provider] - 1-2 days Time of Disposition: 22:33
--- NOTE | 2017-08-06 22:35 | CT ---
EXAMINATION TYPE: CT brain fariba suazo DATE OF EXAM: 08/06/2017 COMPARISON: Head CT scan 03/24/2016 HISTORY: Fall. Head and neck pain. CT DLP: 1812 mGycm Automated exposure control for dose reduction was used. TECHNIQUE: CT scan of the head and cervical spine are performed without contrast. FINDINGS: Ventricles of normal size. There is no mass effect nor midline shift. There is no sign of intracranial hemorrhage. The calvarium is intact. There is straightening of the cervical spine. There is some disc space narrowing and spur formation a t C6-7. There is posterior spurring of the endplates and encroachment on the spinal canal. The facet joints are intact. The skull base is intact. IMPRESSION: Negative CT scan of the brain. No change. Spondylotic changes in the lower cervical spine mainly at C6-7. There is 5 to 6 mm spinal stenosis at C6-7 due to posterior endplate spur formation. No fracture.
--- NOTE | 2017-08-06 22:37 | XR ---
EXAMINATION TYPE: XR lumbosacral spine min 4V DATE OF EXAM: 08/06/2017 COMPARISON: 03/21/2017 HISTORY: Low back pain TECHNIQUE: 5 views. FINDINGS: There is mild lumbar dextroscoliosis. The sacroiliac joints are intact. There is disc space narrowin g at L4-5. There is mild disc space narrowing in the remainder of the lumbar spine. Posterior element s are intact. There is no compression fracture. IMPRESSION: Mild degenerative disc changes. No fracture. No change compared to old exam.
[2017-08-06 22:50] VITALS: PULSE 98
== END 2017-08-06 22:50 | disposition home or self-care (01) ==
LOC: EC 21:03
DX: S09.90XA Unspecified injury of head, initial encounter (principal); M48.02 Spinal stenosis, cervical region; M50.30 Other cervical disc degeneration, unspecified cervical region; M79.7 Fibromyalgia; G62.9 Polyneuropathy, unspecified; F32.9 Major depressive disorder, single episode, unspecified; Z86.718 Personal history of other venous thrombosis and embolism; Z98.890 Other specified postprocedural states; Z91.013 Allergy to seafood; Z79.891 Long term (current) use of opiate analgesic; Z79.899 Other long term (current) drug therapy; W18.39XA Other fall on same level, initial encounter; Y93.E1 Activity, personal bathing and showering; Y92.002 Bathroom of unspecified non-institutional (private) residence as the place of occurrence of the external cause
CPT/HCPCS: 99284; 96372; 72110; 72125; 70450; J3360

== ENCOUNTER → 2017-08-30 | Outpatient (CLI) | payer OTHER ==
[2017-08-30 13:40] VITALS: BP 131/76; PULSE 126; RESP 16
--- NOTE | 2017-08-30 14:51 | P.PAINPG ---
Subjective Progress Note Date: 08/30/17 Principal diagnosis: Patient's physician will no longer be older prescribe her high-dose fentanyl due to insurance prescription restrictions. This is a 47-year-old woman with a history of low back pain as well as previous hemilaminectomy at L4. She reports that she also has significant cervical pain and is planning on having a cervical fusion done. She received followed up with her primary care physician to get a refill of her 100 g per hour fentanyl patch. Due to insurance restrictions her physician can only authorize 50 g per hour. She presents to our clinic as an add-on patient. She is tearful and requesting her 100 mg at no patch. She reports to me that as things are she has no quality of life. Her mother has to do most activities for her. She denies any focal motor deficits. Her pain is mainly in her back. She does not have radicular symptomatology. Objective - Vital Signs Vital signs: Vital Signs Temp Pulse 126 H 08/30/17 13:30 Resp 16 08/30/17 13:30 BP 131/76 08/30/17 13:30 Pulse Ox 98 08/30/17 13:30 Intake & Output 08/29/17 08/30/17 08/30/17 18:59 06:59 18:59 Weight 77.111 kg - Exam General: The patient is alert and oriented. Patient is not sedated Patient answers all question appropriately. Cardiac: Heart is regular in rate and rhythm Respiratory: Clear to auscultation. No audible wheezes. Abdomen: Soft nontender nondistended. Lower extremities: Strength is normal bilaterally. Sensation is normal bilaterally. Reflexes are preserved and symmetric bilaterally. Straight leg raise is negative bilaterally. She has significant myofascial tenderness to light palpation throughout the lumbar spine. She is also tender over the lumbosacral junction. Assessment and Plan Assessment: Plan of Care 1. Medications: I had a long discussion with the patient regarding her medications. We are currently not prescribing her opiates for her. I told her we would not take over writing them for her. I believe that her high-dose fentanyl patch is not indicated. She herself admits that she has no quality of life. In my opinion, it is not accomplishing the goal of functional gnosticist. Therefore, I would fully agree with the decision to wean this patch. I discussed this with the patient. She is very upset about this. I told her we would need to seek nonopiate methods of treating her pain. I had previous he recommended injection therapy for her and unfortunately this was canceled secondary to an illness. It has not been rescheduled. 2. Interventions: We will schedule the patient for bilateral lumbar trigger point injections. 3. Referrals: I refer the patient to pain psychologist as well as a physical therapist. She will follow-up with her primary care physician to receive refill of fentanyl patch at 50 mg an hour. We will continue to work on weaning this medication further in the future. 4. Testing: No testing was ordered today. 5. Psychological: Patient will follow up with the pain psychologist. (1) Herniated nucleus pulposus Current Visit: Yes Status: Acute Code(s): M51.9 - UNSP THORACIC, THORACOLUM AND LUMBOSACR INTVRT DISC DISORDER SNOMED Code(s): 60847814 (2) Lumbar post-laminectomy syndrome Current Visit: Yes Status: Acute Code(s): M96.1 - POSTLAMINECTOMY SYNDROME, NOT ELSEWHERE CLASSIFIED SNOMED Code(s): 553495035 (3) Chronic back pain Current Visit: No Status: Acute Code(s): M54.9 - DORSALGIA, UNSPECIFIED; G89.29 - OTHER CHRONIC PAIN SNOMED Code(s): 916240141 (4) Myofascial pain syndrome Current Visit: No Status: Acute Code(s): M79.1 - MYALGIA SNOMED Code(s): 682441752 PQRS Measure Charge Sheet Measure #130: Documentation of Current Meds in Medical Chart: Patient not eligible for medications to be documented Measure #226: Tobacco Use: Screen & Cessation Intervention: Pt not a tobacco user Measure #111: Pneumonia Vaccination: Pneumococcal vaccine NOT administered or previously given Measure #47: Advance Care Plan: Advance care planning discussed & documented, pt chose/unable to give Measure #412: Opioid Treatment Agreement: No documentation of signed opioid treatment agreement Measure #408: Opioid Therapy Follow-up Evaluation: Patient had NO f/u eval minimum every 3 months during opioid therapy Measure #317: Preventitive Care & Scrn High Bld Press & F/U: Normal blood pressure, f/u not required Measure #128: Body Mass Index (BMI) Screening & Follow-up: BMI documented within normal parameters Measure #131: Pain Assessment & Follow-up: Pain positive & plan documented Measure #431: Unhealthy Alcohol Use Preventative Care & Scrn: Patient not identified as an unhealthy alcohol user PQRS Narrative: Smoking Status Never smoker Do You Want the Pneumonia Vaccine Up to Date Vaccine AT THIS TIME? Blood Pressure 131/76 Pain Intensity [Generalized] 8 Scale Used Numeric (1 - 10) Hx Alcohol Use (MH) No Home Medications: Ambulatory Orders Gabapentin [Neurontin] 800 mg PO TID 06/25/13 Ibuprofen [Motrin] 800 mg PO Q8HR PRN 06/25/13 PARoxetine HCL [Paxil] 40 mg PO DAILY 06/25/13 Hydrocodone/Acetaminophen [Hydrocodone/Acetaminophen 10-325] 1 tab PO Q4HR PRN 09/08/13 fentaNYL [Duragesic] 1 patch TOPICAL Q72H 09/08/13 Ipratropium-Albuterol Nebulize [Duoneb 0.5 mg-3 mg/3 ml Soln] 3 ml INHALATION RT -QID PRN 07/06/15 Zolpidem Tartrate [Ambien] 10 mg PO HS 07/06/15 Albuterol Inhaler [Ventolin Hfa Inhaler] 1 - 2 puff INHALATION RT-Q6H PRN Fenofibrate 160 mg PO DAILY 10/08/16 Levothyroxine Sodium [Synthroid] 25 mcg PO DAILY 10/08/16 Methocarbamol [Robaxin-750] 750 mg PO QID 10/08/16 Omeprazole [PriLOSEC] 40 mg PO AC-BRENDAKFSYuniel #14 capsule. 10/19/16 Digoxin [Lanoxin] 125 mcg PO DAILY 02/12/17 Cefdinir [Omnicef] 300 mg PO Q12HR 05/05/17 Amitriptyline HCl [Elavil] 10 mg PO HS #30 tab 06/27/17 Diazepam [Valium] 10 mg PO BID #30 tablet 06/27/17 Controlled Substance Measures - Controlled Substance Measures Is patient prescribed a controlled substance at discharge?: No
== END | disposition home or self-care (01) ==
LOC: PNWHC3 13:01
PROVIDERS: ATTEND Pain Medicine Pain Medicine
DX: G89.29 Other chronic pain (principal); M51.9 Unspecified thoracic, thoracolumbar and lumbosacral intervertebral disc disorder; M96.1 Postlaminectomy syndrome, not elsewhere classified; M79.1 Myalgia; Z79.899 Other long term (current) drug therapy
CPT/HCPCS: 99211

== ENCOUNTER → 2017-09-13 | Outpatient (CLI) | payer OTHER ==
--- NOTE | 2017-09-20 17:29 | MM ---
Reason for exam: screening (asymptomatic). Last mammogram was performed 1 year and 11 months ago. History: Patient is nulliparous. MG Screening Mammo w CAD Bilateral CC and MLO view(s) were taken. Prior study comparison: October 19, 2015, bilateral MG screening mammo w CAD. The breast tissue is heterogeneously dense. This may lower the sensitivity of mammography. No significant changes when compared with prior studies. ASSESSMENT: Negative, BI-RAD 1 RECOMMENDATION: Routine screening mammogram of both breasts in 1 year.
== END | disposition home or self-care (01) ==
LOC: RADMAMWWP 07:06
PROVIDERS: ATTEND Family Medicine
DX: Z12.31 Encounter for screening mammogram for malignant neoplasm of breast (principal)
CPT/HCPCS: 77067

== ENCOUNTER 2017-09-24 07:23 | Day surgery (SDC) | payer OTHER ==
[2017-09-18 10:49] VITALS: BMI 25.8
[2017-09-24 08:10] VITALS: TEMP 98.6
[2017-09-24] MEDS ORDERED: LIDOCAINE 1% 20 ML VIAL (10MG/ML) FOR IV START INTRADERMA ONE (08:38)
[2017-09-24] MEDS ORDERED: LACTATED RINGERS 1,000 ML IV ONE (08:38)
[2017-09-24 09:07] VITALS: RESP 16
[2017-09-24 09:17] VITALS: BP 117/75; PULSE 66
[2017-09-24] MEDS ORDERED: IV FLUID CONTINUATION 1,000 ML IV ONE (09:26)
--- NOTE | 2017-09-24 09:32 | P.PCN ---
Date of Procedure: 09/24/17 Procedure(s) Performed: Preoperative diagnoses= 1-myofascial pain syndrome lumbar area. 2-failed back surgery syndrome lumbar area Postoperative diagnoses= same as preoperative diagnosis. Procedure= trigger point injections lumbar paravertebral muscles, 4 on the right side lumbar paravertebral muscles are 3 on the left side . Anesthesia= moderate sedation with Versed 2 mg and fentanyl 50 micrograms. Estimated blood loss=minimal. Procedure indication= the patient had a history of severe chronic low back pain, diagnosed with myofascial pain syndrome unresponsive to conservative treatment. Procedure description= the patient was seen and identified in the preoperative holding area, risks and benefits and alternative of the procedure and possible complications discussed with the patient, and he agreed with the preceding, patient signed the consent, an IV was started, and vital signs were monitored and were stable throughout the procedure, patient was placed in the sitting positions , table and the lumbosacral area was prepped and draped with a sterile fashion, vital signs were closely monitored during the procedure, then a 25-gauge needle used , each trigger point was injected with mixture of ropivacaine 0.5% and 40 mg of Kenalog, total of 2 mL injected at each trigger point after negative aspiration, total of 14 ML of ropivacaine used, and then after negative aspiration under was no paresthesia during the injection . Patient tolerated the procedure well without any complication, The patient returned to supine position after the back was cleaned and a Band- Aid applied, the patient transported to recovery room in stable condition and he was monitored for 30 minutes before he was discharged home and then patient was reexamined before going home and patient was discharged in stable condition and patient will follow up with the pain clinic in a few weeks The patient continued to have pain after the injection , we should consider targeting ,the facetogenic component of her low back
== END 2017-09-24 09:30 | disposition home or self-care (01) ==
LOC: ORPAIN 07:23
PROVIDERS: ATTEND Specialist
DX: M79.1 Myalgia (principal); J45.909 Unspecified asthma, uncomplicated; M96.1 Postlaminectomy syndrome, not elsewhere classified; E03.9 Hypothyroidism, unspecified
CPT/HCPCS: 20553; J2250; J1030; J3010

== ENCOUNTER → 2017-11-08 | Outpatient (CLI) | payer OTHER ==
[2017-11-08 14:21] VITALS: BP 135/87; PULSE 120; RESP 18
--- NOTE | 2017-11-08 14:52 | P.PN ---
Subjective Progress Note Date: 11/08/17 Principal diagnosis: Failed back surgery syndrome\ Migraine headache Cardiac arrhythmia with digoxin treatment This is a 47-year-old female with history of chronic lower back pain with radiation to the lower extremities down to the feet with numbness and tingling in no specific radicular distribution. The patient uses fentanyl patch 50 mics an hour every 72 hours and she gets prescription for that from her primary care physician. She had multiple injections previously and the last one was trigger point injection in the lumbar paravertebral musculature which helped her significantly. The patient today has migraine headache despite using Imitrex injection and when I saw she had her sunglasses on with dimmed lights in the room. Today, pt denies new-onset weakness, bowel/bladder incontinence, or any other signs or symptoms of cauda equina syndrome. There are no signs of acute intoxication, and no indications of medication diversion or overuse. In addition to above, 13-point review of systems is also negative for chest pain , shortness of breath, changes in vision, changes in hearing, new onset weakness , abdominal pain, diarrhea, extreme fatigue, malaise, fever, skin changes, homicidal or suicidal ideation, or bowel or bladder incontinence. Vital Signs: Reviewed in EMR Gen: AAOx3, NAD HEENT: PERRLA,hearing grossly normal Pulm: resp unlabored,CTA Neck: supple, trachea midline Neuro exam of the lower extremities: Decreased effort resulting in symmetrical weakness in both legs. She has normal bilateral knee reflexes and absent ankle reflexes Straight leg raising test: Negative Positive tenderness around the sacroiliac joints bilaterally Facet loading test: Positive Tenderness in the paravertebral musculature: Positive on the lumbar paravertebral musculature Neuro: CN II-XII grossly intact, Imaging: Reviewed in EMR/chart Assessment: 1 lumbar failed back surgery syndrome Myofascial pain Opioid dependence Migraine headache Arrhythmia with treatment with digoxin Plan: 1. Explanation: Opioid and psychological risk scores were reviewed. Diagnoses , prognoses, and multiple treatment options including but not limited to physical therapy, interventional therapies, adjuvant medical therapies, narcotic medication therapies, and surgery were discussed with the patient and all questions were answered to the patient's satisfaction. 2. Opioid agreement: We do not prescribe opioids for this patient 3. Counseling: The patient was counseled extensively on SMOKING CESSATION, BODY MASS INDEX, EXERCISE. Specifically, the patient was instructed regarding the importance of smoking cessation, obesity, and exercise in the context of both chronic pain and overall health. 4. Procedures: Manual schedule for caudal epidural steroid injection 4 weeks from now if her pain becomes worse. 5. Consultations: None 6. Investigations: None 7. Medications: No medications prescribed today 8. Disposition: Return to the above-mentioned procedure 4 weeks from now Objective - Vital Signs Vital signs: Vital Signs Temp Pulse 120 H 11/08/17 14:12 Resp 18 11/08/17 14:12 BP 135/87 11/08/17 14:12 Pulse Ox 97 11/08/17 14:12
== END | disposition home or self-care (01) ==
LOC: PNWHC3 13:45
PROVIDERS: ATTEND Anesthesiology
DX: G89.29 Other chronic pain (principal); M96.1 Postlaminectomy syndrome, not elsewhere classified; G43.909 Migraine, unspecified, not intractable, without status migrainosus; M79.18 Myalgia, other site; I49.9 Cardiac arrhythmia, unspecified; F11.20 Opioid dependence, uncomplicated; Z79.899 Other long term (current) drug therapy
CPT/HCPCS: 99211

== ENCOUNTER → 2017-12-11 | Day surgery (SDC) | payer OTHER ==
[2017-12-10 10:47] VITALS: BMI 25.8
[~2017-12-11] MED LIST changes: +KETOROLAC 30 MG/ML 1 ML VIAL IM ONE; +KETOROLAC 30 MG/ML 1 ML VIAL IM STA; -LACTATED RINGERS 1,000 ML IV SCH; +SODIUM CHLORIDE 0.9% 500 ML 500 ML IV ONE
[2017-12-11 07:12] VITALS: TEMP 98.6
--- NOTE | 2017-12-11 07:52 | P.PCN ---
Date of Procedure: 12/11/17 Procedure(s) Performed: PREOP DIAGNOSIS: 1- Lumbar postlaminectomy syndrome POSTOP DIAGNOSIS:1- Lumbar postlaminectomy syndrome PROCEDURE: Caudal epidural steroid injection with epidurolysis under fluoroscopic guidance ANESTHESIA: Local with 1% lidocaine 3 ml ,and moderate sedation, with Versed 2 mg and fentanyl 100 g EBL: Minimal. PROCEDURE INDICATION: The patient with post-laminectomy syndrome with low back pain and radiculopathy radiating down in both legs, here for a caudal epidural steroid injection with epidurolysis. PROCEDURE DESCRIPTION: The patient was seen and identified in the preoperative area. Risks, benefits, complications, and alternatives were discussed with the patient. The patient agreed to proceed with the procedure and signed the consent. IV was started, and vital signs were stable. Patient was taken to the OR and time out was completed. The patient was placed in the prone position on procedure table and a pillow was placed under the abdomen to reduce lumbar lordosis. The lumbosacral area was prepped and draped in the usual sterile fashion. Vital signs were closely monitored during the procedure. lateral view and the anterior-posterior plates of the sacrum were identified with infiltration of the area overlying the sacral hiatus with 1% lidocaine .A 17 gauge RK epidural needle was used to advance through the sacral hiatus into the caudal epidural space. Omnipaque 180 dye. 2cc was injected and the position of the needle was verified to be in the midline. A Racz catheter was introduced into the epidural space and was advanced towards the L5-S1 interspace under direct fluoroscopic guidance. Multiple passes were made with the catheter for lysis of epidural adhesions. Depo-medrol 80 mg with 3ml of preservative free Lidocaine 1% and 5 ml of preservative free normal saline was injected slowly. The needle and the catheter were withdrawn intact. Omnipaque/Isovue was not used because patient has ALLERGY to shellfish COMPLICATIONS: None. DISPOSITION / PLANS: The patient was placed in a supine position and transferred to the recovery area in a stable condition for observation and was discharged from the recovery room after meeting discharge criteria. Home discharge instructions given to the patient by the staff. The patient was reexamined prior to discharge. The patient will schedule a follow up in the clinic in 2-4 weeks.
[2017-12-11 07:56] VITALS: RESP 18
--- NOTE | 2017-12-11 08:31 | FL ---
Fluoroscopy HISTORY: Pain 4 seconds fluoroscopy time supplied to the referring clinician. 2 intraoperative C-arm images docume nt the procedure. See dictated report from anesthesia.
[2017-12-11 10:29] VITALS: BP 104/60; PULSE 76
== END ==
LOC: ORPAIN 06:41
PROVIDERS: ATTEND Specialist
DX: M96.1 Postlaminectomy syndrome, not elsewhere classified (principal); M54.10 Radiculopathy, site unspecified; I48.91 Unspecified atrial fibrillation; I82.409 Acute embolism and thrombosis of unspecified deep veins of unspecified lower extremity; I47.1 Supraventricular tachycardia; Z91.013 Allergy to seafood
CPT/HCPCS: 81025; 62264; J2250; J1030; J3010; J1885; 99152

== ENCOUNTER → 2018-01-01 | Outpatient (CLI) | payer OTHER ==
--- NOTE | 2018-01-01 15:57 | XR ---
EXAMINATION TYPE: XR hand complete LT DATE OF EXAM: 01/01/2018 COMPARISON: NONE HISTORY: Pain in the third digit TECHNIQUE: Three views are submitted. FINDINGS: The osseous structures are intact. The joint spaces are preserved and there is no acute fracture or dislocation. IMPRESSION: 1. No definite acute fracture or dislocation if symptoms persist, follow-up study in 7 to 10 days wo uld be suggested
--- NOTE | 2018-01-02 09:24 | NM ---
EXAMINATION TYPE: NM bone scan whole body DATE OF EXAM: 01/01/2018 COMPARISON: X-ray 08/06/2017 HISTORY: Low back pain Delayed whole-body scanning was performed following the injection of 24.3 mCi Tc 99m MDP. Images acq uired 3 hours post injection. FINDINGS: Abnormal uptake at the proximal level of L4-L5 corresponds to the severe degenerative disc disease no stanley by x-ray. Curvature the spine noted. Abnormal uptake involving the left maxilla likely related to periodontal disease. Faint uptake in the midthoracic spine likely degenerative. Abnormal uptake involving the feet bilaterally likely post arthritic. IMPRESSION: 1. Abnormal uptake involving the lower lumbar spine corresponds to severe degenerative disc disease a nd facet arthropathy by previous x-ray. There is a reduced uptake involving the sacrum which may be t echnical, however recommend follow-up MRI of the lumbosacral spine.
== END | disposition home or self-care (01) ==
LOC: RADBDWWP 12:38
PROVIDERS: ATTEND Neurological Surgery
DX: M51.36 Other intervertebral disc degeneration, lumbar region (principal); M46.86 Other specified inflammatory spondylopathies, lumbar region; M79.645 Pain in left finger(s)
CPT/HCPCS: 73130; 78306; A9503

== ENCOUNTER 2018-01-29 14:10 | Emergency (ER) | payer OTHER ==
--- NOTE | 2018-01-29 15:01 | XR ---
EXAMINATION TYPE: XR chest 2V DATE OF EXAM: 01/29/2018 COMPARISON: 10/18/2016 HISTORY: Chest pain TECHNIQUE: Frontal and lateral views of the chest are obtained. FINDINGS: Heart and mediastinum are normal. Lungs are clear. Diaphragm is normal. Bony thorax appear s normal. IMPRESSION: Normal chest. No change.
--- NOTE | 2018-01-29 15:25 | ED ---
General Adult HPI - General Chief complaint: Upper Respiratory Infection Stated complaint: Poss Bronchitis Source: patient, RN notes reviewed, old records reviewed Mode of arrival: ambulatory Limitations: no limitations - History of Present Illness Initial comments: 48-year-old female patient with no pertinent past medical history presents to ED with 2 days of dry cough, sore throat, congestion. Patient states that she gets bronchitis almost on a yearly basis every winter. Patient states that this feels similar to bronchitis she's had in past. Patient states that her cough is nonproductive, denies any shortness of breath, chest pain, Pleuritic chest pain. Patient denies nausea vomiting diarrhea, abdominal pain. Systemic: Pt denies fatigue, myalgia, chills, rash. Pt denies weakness, night sweats, weight loss. Neuro: Pt denies headache, visual disturbances, syncope or pre-syncope. HEENT: Pt denies ocular discharge or irritation, otalgia, rhinorrhea, pharyngitis or notable lymphadenopathy. Cardiopulmonary: Pt denies chest pain, SOB, heart palpitations, dyspnea on exertion. Abdominal/GI: Pt denies abdominal pain, n/v/d. : Pt denies dysuria, burning w/ urination, frequency/urgency. Denies new onset urinary or bowel incontinence. MSK: Pt denies myalgia, loss of strength or function in extremities. Neuro: Pt denies new onset weakness, paresthesias. - Related Data Home Medications Medication Instructions Recorded Confirmed Gabapentin [Neurontin] 800 mg PO TID 06/25/13 12/11/17 Ibuprofen [Motrin] 800 mg PO Q8HR PRN 06/25/13 12/11/17 PARoxetine HCL [Paxil] 40 mg PO DAILY 06/25/13 12/11/17 Hydrocodone/Acetaminophen 1 tab PO Q4HR PRN 09/08/13 12/11/17 [Hydrocodone/Acetaminophen 10-325] fentaNYL [Duragesic] 1 patch TOPICAL Q72H 09/08/13 12/11/17 Ipratropium-Albuterol Nebulize 3 ml INHALATION RT-QID PRN 07/06/15 12/11/17 [Duoneb 0.5 mg-3 mg/3 ml Soln] Zolpidem Tartrate [Ambien] 10 mg PO HS 07/06/15 12/11/17 Albuterol Inhaler [Ventolin Hfa 1 - 2 puff INHALATION RT-Q6H PRN 10/08/16 Inhaler] Fenofibrate 160 mg PO DAILY 10/08/16 12/11/17 Levothyroxine Sodium [Synthroid] 25 mcg PO DAILY 10/08/16 12/11/17 Methocarbamol [Robaxin-750] 750 mg PO QID 10/08/16 12/11/17 Digoxin [Lanoxin] 125 mcg PO DAILY 02/12/17 12/11/17 Previous Rx's Medication Instructions Recorded Omeprazole [PriLOSEC] 40 mg PO AC-BRENDAKFSYuniel #14 capsule. 10/19/16 Amitriptyline HCl [Elavil] 10 mg PO HS #30 tab 06/27/17 Diazepam [Valium] 10 mg PO BID #30 tablet 06/27/17 guaiFENesin-DM 600/30MG [Mucinex 1 each PO Q12HR 7 Days #14 01/29/18 Dm] tab.er.12h methylPREDNISolone Dose Pack 4 mg PO DIRECTED #21 package 01/29/18 [Medrol Dose Pack] Allergies Allergy/AdvReac Type Severity Reaction Status Date / Time shellfish derived [Shellfish] Allergy Anaphylaxis Verified 01/29/18 14:28 Review of Systems ROS Statement: Those systems with pertinent positive or pertinent negative responses have been documented in the HPI. ROS Other: All systems not noted in ROS Statement are negative. Past Medical History Past Medical History: Atrial Fibrillation, Chest Pain / Angina, Deep Vein Thrombosis (DVT), Fibromyalgia, Musculoskeletal Disorder, Osteoarthritis (OA), Respiratory Disorder, Supraventricular Tachycardia (SVT), Syncope Additional Past Medical History / Comment(s): chronic bronchitis. chronic back pain ddd,herniated disc migarines, hx. kidney stones, permanent wheeze, "born with heart defect.past svt;peripheral neuropathy. History of Any Multi-Drug Resistant Organisms: None Reported Past Surgical History: Back Surgery, Cardiac Ablation, Cholecystectomy, Orthopedic Surgery Additional Past Surgical History / Comment(s): 14 back surgery's., geo knee arthroscopy, PAIN CLINIC PROCEDURES, Past Anesthesia/Blood Transfusion Reactions: No Reported Reaction Past Psychological History: Depression Smoking Status: Never smoker Past Alcohol Use History: None Reported Past Drug Use History: None Reported - Past Family History Mother Family Medical History: No Reported History Brother(s) Family Medical History: Cancer Additional Family Medical History / Comment(s): both brothers when they reached age 39. one from brain cancer and the other from complications from a congential heart problem. Father Family Medical History: Diabetes Mellitus Additional Family Medical History / Comment(s): pt's mother has hypertension, kidney stones, endometriosis General Exam - General Exam Comments Initial Comments: Constitutional: NAD, AOX3, Pt has pleasant affect. HEENT: NC/AT, trachea midline, neck supple, no lymphadenopathy. Posterior pharynx non erythematous, without exudates. External ears appear normal, without discharge. Mucous membranes moist. Eyes PERRLA, EOM intact. There is no scleral icterus. No pallor noted. Cardiopulmonary: RRR, no murmurs, rubs or gallops, no JVD noted. Lungs CTAB in anterior and posterior patel. No peripheral edema. Non productive cough noted in exam room. Abdominal exam: Abdomen soft and non-distended. Abdomen non-tender to palpation in all 4 quadrants. Bowel sounds active in LLQ. No hepatosplenomegaly. No ecchymosis Neuro: CN II-XII grossly intact. No nuchal rigidity. MSK: No posterior calf tenderness bilaterally, homans sign negative bilaterally. Posterior tibialis and radial pulse +2 bilaterally. Sensation intact in upper and lower extremities. Full active ROM in upper and lower extremities, 5/5 stregnth. Limitations: no limitations Course Vital Signs 01/29/18 01/29/18 14:28 14:43 Temperature 98.9 F Pulse Rate 69 Respiratory 18 20 Rate Blood Pressure 133/73 O2 Sat by Pulse 99 Oximetry Medical Decision Making - Medical Decision Making 48-year-old female patient with no pertinent past medical history presents to ED with 2 days of dry cough, sore throat, congestion. Patient states that she gets bronchitis almost on a yearly basis every winter. Patient states that this feels similar to bronchitis she's had in past. Physical exam displayed a nonproductive cough, no other acute pathology. Influenza and strep swabs are negative. History denies any acute process. Patient diagnosed with acute bronchitis. Patient prescribed Medrol Dosepak, mucinex. Pt to f/u with PCP in 1 -2 days. Patient to return to ED if any signs or symptoms develop or if condition worsens in any way. - Lab Data Lab Results 01/29/18 01/29/18 Range/Units 14:45 14:45 Influenza Type A RNA Not Detected (Not Detectd) Influenza Type B (PCR) Not Detected (Not Detectd) Group A Strep Rapid Negative (Negative) Disposition Clinical Impression: Acute bronchitis Disposition: HOME SELF-CARE Condition: Good Instructions: Acute Bronchitis (ED) Additional Instructions: Patient to adhere to previously discussed treatment plan and will take medication(s) as directed. Patient to follow up with PCP in 1-2 days. Patient to return to ED if symptoms do not improve. Prescriptions: guaiFENesin-DM 600/30MG [Mucinex Dm] 1 each PO Q12HR 7 Days #14 tab.er.12h methylPREDNISolone Dose Pack [Medrol Dose Pack] 4 mg PO DIRECTED #21 package Is patient prescribed a controlled substance at d/c from ED?: No Referrals: Andry Luna DO [Primary Care Provider] - 1-2 days Time of Disposition: 15:36
[2018-01-29 15:50] VITALS: BP 134/66; PULSE 63; RESP 18; TEMP 98.2
== END 2018-01-29 15:49 | disposition home or self-care (01) ==
LOC: EC 14:10
DX: J20.9 Acute bronchitis, unspecified (principal); I48.91 Unspecified atrial fibrillation; Q24.9 Congenital malformation of heart, unspecified; G62.9 Polyneuropathy, unspecified; M79.7 Fibromyalgia; G89.29 Other chronic pain; F32.9 Major depressive disorder, single episode, unspecified; Z91.013 Allergy to seafood; Z79.899 Other long term (current) drug therapy; Z79.891 Long term (current) use of opiate analgesic; Z98.890 Other specified postprocedural states
CPT/HCPCS: 71046; 87081; 87430; 87502; 99284

== ENCOUNTER → 2018-02-19 | Outpatient (CLI) | payer OTHER ==
[2018-02-19 13:56] VITALS: BP 122/77; PULSE 77; RESP 18
--- NOTE | 2018-02-19 19:51 | P.PN ---
Progress Note - Text Progress Note Date: 02/19/18 This is 48 years old female with a history of chronic pain secondary to failed back surgery syndrome and lumbar area , and she is complaining of severe neck pain and she was followed up with the neurosurgeon , for possible surgical intervention , she came to [facility] pain clinic today to discuss, the results of the cervical MRI, and the myelogram that was done, at [facility], patient reported that she told her the neurosurgeon to get the information sended to, [facility] pain clinic, but today during the interview ,I checked the EMR ,there was no information sent to us from [facility] about her diagnostic test, and also there was no information faxed to us from [facility] about her medical condition for this reason, we couldn't discuss any results with her, and patient reported that she would get the MRI of the cervical spine ,and the myelogram ,and then , she would come back to our clinic and we can discuss with her, the result of the diagnostic test
== END | disposition home or self-care (01) ==
LOC: PNWHC3 13:25
PROVIDERS: ATTEND Specialist
DX: M54.2 Cervicalgia (principal); M96.1 Postlaminectomy syndrome, not elsewhere classified
CPT/HCPCS: 99211

== ENCOUNTER 2018-03-17 12:11 | Emergency (ER) | payer OTHER ==
[2018-03-17 12:16] VITALS: RESP 16; TEMP 99.2
--- NOTE | 2018-03-17 13:37 | ED ---
Fall HPI - General Chief Complaint: Fall Stated Complaint: FALL/FACE INJURY Time Seen by Provider: 03/17/18 13:08 Source: patient, RN notes reviewed, old records reviewed Mode of arrival: ambulatory - History of Present Illness Initial Comments: 48-year-old female presents racemic today with chief complaint of left-sided facial swelling after she fell yesterday reports she reports that she hit her left cheek. - Related Data Home Medications Medication Instructions Recorded Confirmed Gabapentin [Neurontin] 800 mg PO TID 06/25/13 02/19/18 Ibuprofen [Motrin] 800 mg PO Q8HR PRN 06/25/13 02/19/18 PARoxetine HCL [Paxil] 40 mg PO DAILY 06/25/13 02/19/18 Hydrocodone/Acetaminophen 1 tab PO Q4HR PRN 09/08/13 02/19/18 [Hydrocodone/Acetaminophen 10-325] fentaNYL [Duragesic] 1 patch TOPICAL Q72H 09/08/13 02/19/18 Ipratropium-Albuterol Nebulize 3 ml INHALATION RT-QID PRN 07/06/15 02/19/18 [Duoneb 0.5 mg-3 mg/3 ml Soln] Zolpidem Tartrate [Ambien] 10 mg PO HS 07/06/15 02/19/18 Albuterol Inhaler [Ventolin Hfa 1 - 2 puff INHALATION RT-Q6H PRN 10/08/16 Inhaler] Fenofibrate 160 mg PO DAILY 10/08/16 02/19/18 Levothyroxine Sodium [Synthroid] 25 mcg PO DAILY 10/08/16 02/19/18 Methocarbamol [Robaxin-750] 750 mg PO QID 10/08/16 02/19/18 Digoxin [Lanoxin] 125 mcg PO DAILY 02/12/17 02/19/18 Amoxic-Pot Clav 875-125Mg 1 cap PO BID 02/19/18 02/19/18 [Augmentin 875-125] Metoprolol Tartrate [Lopressor] 12.5 mg PO DAILY 02/19/18 02/19/18 Previous Rx's Medication Instructions Recorded Omeprazole [PriLOSEC] 40 mg PO USE #14 willie. 10/19/16 Amitriptyline HCl [Elavil] 10 mg PO HS #30 tab 06/27/17 guaiFENesin-DM 600/30MG [Mucinex 1 each PO Q12HR 7 Days #14 01/29/18 Dm] tab.er.12h Amoxic-Pot Clav 875-125Mg 1 tab PO Q12HR #20 tablet 03/17/18 [Augmentin 875-125] Allergies Allergy/AdvReac Type Severity Reaction Status Date / Time shellfish derived [Shellfish] Allergy Anaphylaxis Verified 03/17/18 12:17 Review of Systems ROS Statement: Those systems with pertinent positive or pertinent negative responses have been documented in the HPI. ROS Other: All systems not noted in ROS Statement are negative. Past Medical History Past Medical History: Atrial Fibrillation, Chest Pain / Angina, Deep Vein Thrombosis (DVT), Fibromyalgia, Musculoskeletal Disorder, Osteoarthritis (OA), Respiratory Disorder, Supraventricular Tachycardia (SVT), Syncope Additional Past Medical History / Comment(s): chronic bronchitis. chronic back pain ddd,herniated disc migarines, hx. kidney stones, permanent wheeze, "born with heart defect.past svt;peripheral neuropathy. History of Any Multi-Drug Resistant Organisms: None Reported Past Surgical History: Back Surgery, Cardiac Ablation, Cholecystectomy, Orthopedic Surgery Additional Past Surgical History / Comment(s): 14 back surgery's., geo knee arthroscopy, PAIN CLINIC PROCEDURES, Past Anesthesia/Blood Transfusion Reactions: No Reported Reaction Past Psychological History: Depression Smoking Status: Never smoker Past Alcohol Use History: None Reported Past Drug Use History: None Reported - Past Family History Mother Family Medical History: No Reported History Brother(s) Family Medical History: Cancer Additional Family Medical History / Comment(s): both brothers when they reached age 39. one from brain cancer and the other from complications from a congential heart problem. Father Family Medical History: Diabetes Mellitus Additional Family Medical History / Comment(s): pt's mother has hypertension, kidney stones, endometriosis General Exam - General Exam Comments Initial Comments: Pleasant 48 year old female. Limitations: no limitations General appearance: alert, in no apparent distress Head exam: Present: atraumatic, normocephalic, normal inspection Eye exam: Present: normal appearance, PERRL, EOMI. Absent: scleral icterus, conjunctival injection, periorbital swelling ENT exam: Present: normal exam, mucous membranes moist, other (left sided facial swelling over maxilla) Neck exam: Present: normal inspection. Absent: tenderness, meningismus, lymphadenopathy Respiratory exam: Present: normal lung sounds bilaterally. Absent: respiratory distress, wheezes, rales, rhonchi, stridor Cardiovascular Exam: Present: regular rate, normal rhythm, normal heart sounds. Absent: systolic murmur, diastolic murmur, rubs, gallop, clicks GI/Abdominal exam: Present: soft, normal bowel sounds. Absent: distended, tenderness, guarding, rebound, rigid Extremities exam: Present: normal inspection, full ROM, normal capillary refill. Absent: tenderness, pedal edema, joint swelling, calf tenderness Back exam: Present: normal inspection Neurological exam: Present: alert, oriented X3, CN II-XII intact Psychiatric exam: Present: normal affect, normal mood Skin exam: Present: warm, dry, intact, normal color. Absent: rash Course Vital Signs 03/17/18 03/17/18 12:12 15:02 Temperature 99.2 F Pulse Rate 74 68 Respiratory 16 16 Rate Blood Pressure 125/85 100/59 O2 Sat by Pulse 98 95 Oximetry Medical Decision Making - Medical Decision Making Patient is a 48 year old female whom presents to ED today with left sided facial swelling after falling. Patient has swelling davey left maxilla. Patient has no septal hematoma and EOM are intact. Patient CT shows soft tissue welling over left cheek. Also evidence of left maxillary sinusitis. She does complain of sinus congestion. Patient will be discharged with augmentin for sinusitis. Discussed that patient should follow up with PCP and ice the area of swelling. Disucssed strict return parameters. - Radiology Data Radiology results: report reviewed No acute fracture post fall. Soft tissue swelling over the left cheek region. Changes within left maxillary sinus appear suggestive for sinusitis. Disposition Clinical Impression: Sinusitis, Left facial swelling Disposition: HOME SELF-CARE Condition: Good Instructions (If sedation given, give patient instructions): Sinusitis (ED) Additional Instructions: Patient advised to apply cool compresses over the area. Motrin Tylenol for pain. Take the antibiotic as prescribed. Return to the emergency department if any alarming signs or symptoms occur. Prescriptions: Amoxic-Pot Clav 875-125Mg [Augmentin 875-125] 1 tab PO Q12HR #20 tablet Is patient prescribed a controlled substance at d/c from ED?: No Referrals: Andry Luna DO [Primary Care Provider] - 1-2 days Time of Disposition: 14:37
--- NOTE | 2018-03-17 14:22 | CT ---
EXAMINATION TYPE: CT facial bones wo con DATE OF EXAM: 03/17/2018 COMPARISON: None HISTORY: Left side facial swelling and pain post fall, landing on left zygomatic arch. CT DLP: 449.9 mGycm CONTRAST: 0 mL of Isovue 300 The paranasal sinuses are examined in the axial plane at 2 mm thick sections. Reconstructed images i n the coronal plane were obtained. Soft tissue swelling is over the left cheek and mandibular region. This extends to the left inferior orbital region. There is an air-fluid level within the left maxillary sinus. Mild mucosal thickening is through the l eft maxillary sinus. Right maxillary sinuses patent. Ethmoid air cells and sphenoid sinuses are clear . Frontal sinuses are clear. Reconstructed images are performed in the coronal plane. Right septal deviation is noted. Right ostiomeatal unit is patent. Left ostiomeatal unit is obstructed. Temporomandibular junction on the right has degenerative change. Temporomandibular joints are otherwi se unremarkable. Zygomatic arches are intact. Orbital floors appear intact. Greater wings of the sphe noid are unremarkable. IMPRESSIONS: 1. No acute fractures post fall. 2. Soft tissue swelling over the left cheek region. 3. Changes within the left maxillary sinus appear suggestive for sinusitis.
[2018-03-17 15:03] VITALS: BP 100/59; PULSE 68
== END 2018-03-17 15:04 | disposition home or self-care (01) ==
LOC: EC 12:11
DX: J32.0 Chronic maxillary sinusitis (principal); R22.0 Localized swelling, mass and lump, head; I48.91 Unspecified atrial fibrillation; M79.7 Fibromyalgia; M19.90 Unspecified osteoarthritis, unspecified site; I47.1 Supraventricular tachycardia; G43.909 Migraine, unspecified, not intractable, without status migrainosus; G62.9 Polyneuropathy, unspecified; F32.9 Major depressive disorder, single episode, unspecified; Z79.891 Long term (current) use of opiate analgesic; Z79.890 Hormone replacement therapy; Z79.899 Other long term (current) drug therapy; Z91.013 Allergy to seafood; W19.XXXA Unspecified fall, initial encounter
CPT/HCPCS: 70486; 99284

== ENCOUNTER 2018-08-21 16:08 | Observation (INO) | payer OTHER ==
[2018-08-21] MEDS ORDERED: SODIUM CHLORIDE 0.9% 1,000 ML IV STA ×2 (16:33→17:55)
--- NOTE | 2018-08-21 16:37 | ED ---
General Adult HPI - General Chief complaint: Arrhythmia/Palpitations Stated complaint: abn EKG Time Seen by Provider: 08/21/18 16:18 Source: patient Mode of arrival: wheelchair Limitations: no limitations - History of Present Illness Initial comments: Dictation was produced using [employer] dictation software. please excuse any grammatical, word or spelling errors. Chief Complaint: 48-year-old female past medical history of auxiliary blood flow status post ablation presents with instruction from urgent care to come to the e mergency department for palpitations and abnormal EKG. History of Present Illness: Patient is a 48-year-old female she has several comorbidities including atrial fibrillation angina deep venous thrombosis fibromyalgia SVT patient presents today after being seen at [facility] [employer]. At the [facility] patient was evaluated for chief complaint of nasal drainage, ear ringing and coughing. She was seen and evaluated there EKG and a chest x-ray was performed. Patient had an EKG performed with concerning findings. She is given chewable aspirin sent to the emergency department. Patient states that she initially went to the urgent care because she was concerned that she was having symptoms of upper respiratory infection. States that yesterday she had an episode where she came short of breath. She attributes it her shortness of breath to possible postnasal drip. Patient has history of cardiac ablation. She does have established care with gravity meter observer Dr. Main. Patient feels well at the moment and is not expressing any symptoms. The ROS documented in this emergency department record has been reviewed and confirmed by me. Those systems with pertinent positive or negative responses have been documented in the HPI. All other systems are other negative and/or noncontributory. PHYSICAL EXAM: General Impression: Alert and oriented x3, not in acute distress HEENT: Normocephalic atraumatic, extra-ocular movements intact, pupils equal and reactive to light bilaterally, mucous membranes moist. Cardiovascular: Heart regular rate and rhythm, S1&S2 audible, no murmurs, rubs or gallops Chest: Lungs clear to auscultation bilaterally, no rhonchi, no wheeze, no rales Abdomen: Bowel sounds present, abdomen soft, non-tender, non-distended, no organomegaly Musculoskeletal: Pulses present and equal in all extremities, no peripheral edema Motor: no focal deficits noted Neurological: CN II-XII grossly intact, no focal motor or sensory deficits noted Skin: Intact with no visualized rashes Psych: Normal affect and mood ED course: 48 year-old feel presents from urgent care for abnormal EKG. Upon arrival shows heart rate 122 cumbersome masses within acceptable limits. Physical examination is benign. Patient is well-appearing at bedside. EKG shows ST segment depressions and T-wave inversions to the anterior precordial leads. There is no findings of ST segment elevation. EKG is not consistent with ST segment elevation [place] at this time.Laboratory evaluation obtained. CBC, coag panel, metabolic panel was obtained. Patient does have mild anion gap acidosis. Is unclear what this is from however it's likely dehydration. Patient given intravenous fluids. Cardiac enzymes negative. Chest x-ray is nonacute. Patient asymptomatic at this time. Patient's clinical presentation concerning for atypical chest pain with typical features. She is asymptomatic this time she received aspirin prior to coming to the emergency department today. Patient be admitted for serial troponins, cardiology consultation and cardiac monitoring. EKG interpretation: Ventricular rate 109, sinus tachycardia, TN interval 96, care 76, QTC 484. No TN prolongation, no QTC prolongation. ST segment depression and T-wave inversions in the anterior precordial leads - Related Data Home Medications Medication Instructions Recorded Confirmed Gabapentin [Neurontin] 800 mg PO TID 06/25/13 08/21/18 Ibuprofen [Motrin] 800 mg PO TID 06/25/13 08/21/18 PARoxetine HCL [Paxil] 40 mg PO DAILY 06/25/13 08/21/18 Hydrocodone/Acetaminophen 1 tab PO QID 09/08/13 08/21/18 [Hydrocodone/Acetaminophen 10-325] Zolpidem Tartrate [Ambien] 10 mg PO HS 07/06/15 08/21/18 Levothyroxine Sodium [Synthroid] 25 mcg PO DAILY 10/08/16 08/21/18 Methocarbamol [Robaxin-750] 750 mg PO QID 10/08/16 08/21/18 Digoxin [Lanoxin] 125 mcg PO DAILY 02/12/17 08/21/18 Amitriptyline HCl [Elavil] 25 mg PO HS 08/21/18 08/21/18 Fenofibrate Nanocrystallized 145 mg PO HS 08/21/18 08/21/18 [Fenofibrate] Metoprolol Succinate [Toprol XL] 25 mg PO HS 08/21/18 08/21/18 fentaNYL 50MCG/HR PATCH [Duragesic 50 mcg TRANSDERM Q72H 08/21/18 08/21/18 50MCG/HR] Allergies Allergy/AdvReac Type Severity Reaction Status Date / Time shellfish derived [Shellfish] Allergy Anaphylaxis Verified 08/21/18 17:11 Review of Systems ROS Statement: Those systems with pertinent positive or pertinent negative responses have been documented in the HPI. ROS Other: All systems not noted in ROS Statement are negative. Past Medical History Past Medical History: Atrial Fibrillation, Chest Pain / Angina, Deep Vein Thrombosis (DVT), Fibromyalgia, Musculoskeletal Disorder, Osteoarthritis (OA), Respiratory Disorder, Supraventricular Tachycardia (SVT), Syncope Additional Past Medical History / Comment(s): chronic bronchitis. chronic back pain ddd,herniated disc migarines, hx. kidney stones, permanent wheeze, "born with heart defect.past svt;peripheral neuropathy. History of Any Multi-Drug Resistant Organisms: None Reported Past Surgical History: Back Surgery, Cardiac Ablation, Cholecystectomy, Orthopedic Surgery Additional Past Surgical History / Comment(s): 14 back surgery's., geo knee arthroscopy, PAIN CLINIC PROCEDURES, Past Anesthesia/Blood Transfusion Reactions: No Reported Reaction Past Psychological History: Depression Smoking Status: Never smoker Past Alcohol Use History: None Reported Past Drug Use History: None Reported - Past Family History Mother Family Medical History: No Reported History Brother(s) Family Medical History: Cancer Additional Family Medical History / Comment(s): both brothers when they reached age 39. one from brain cancer and the other from complications from a congential heart problem. Father Family Medical History: Diabetes Mellitus Additional Family Medical History / Comment(s): pt's mother has hypertension, kidney stones, endometriosis General Exam Limitations: no limitations Course Vital Signs 08/21/18 16:14 Temperature 97.7 F Pulse Rate 122 H Respiratory 18 Rate Blood Pressure 135/90 O2 Sat by Pulse 97 Oximetry Medical Decision Making - Lab Data Result diagrams: 08/21/18 16:52 08/21/18 16:52 Lab Results 08/21/18 08/21/18 08/21/18 Range/Units 16:52 16:52 16:52 WBC 9.3 (3.8-10.6) k/uL RBC 4.05 (3.80-5.40) m/uL Hgb 12.4 (11.4-16.0) gm/dL Hct 36.2 (34.0-46.0) % MCV 89.2 (80.0-100.0) fL MCH 30.5 (25.0-35.0) pg MCHC 34.2 (31.0-37.0) g/dL RDW 13.7 (11.5-15.5) % Plt Count 240 (150-450) k/uL Neutrophils % 66 % Lymphocytes % 26 % Monocytes % 5 % Eosinophils % 1 % Basophils % 1 % Neutrophils # 6.1 (1.3-7.7) k/uL Lymphocytes # 2.4 (1.0-4.8) k/uL Monocytes # 0.4 (0-1.0) k/uL Eosinophils # 0.1 (0-0.7) k/uL Basophils # 0.1 (0-0.2) k/uL PT 10.0 (9.0-12.0) sec INR 0.9 (<1.2) APTT 22.8 (22.0-30.0) sec Sodium 142 (137-145) mmol/L Potassium 3.9 (3.5-5.1) mmol/L Chloride 106 (98-107) mmol/L Carbon Dioxide 20 L (22-30) mmol/L Anion Gap 16 mmol/L BUN 21 H (7-17) mg/dL Creatinine 0.83 (0.52-1.04) mg/dL Est GFR (CKD-EPI)AfAm >90 (>60 ml/min/1.73 sqM) Est GFR (CKD-EPI)NonAf 84 (>60 ml/min/1.73 sqM) Glucose 121 H (74-99) mg/dL Calcium 10.0 (8.4-10.2) mg/dL Magnesium 1.8 (1.6-2.3) mg/dL Total Bilirubin 0.8 (0.2-1.3) mg/dL AST 52 H (14-36) U/L ALT 20 (9-52) U/L Alkaline Phosphatase 83 (38-126) U/L Troponin I (0.000-0.034) ng/mL Total Protein 8.6 H (6.3-8.2) g/dL Albumin 5.3 H (3.5-5.0) g/dL 08/21/18 Range/Units 16:52 WBC (3.8-10.6) k/uL RBC (3.80-5.40) m/uL Hgb (11.4-16.0) gm/dL Hct (34.0-46.0) % MCV (80.0-100.0) fL MCH (25.0-35.0) pg MCHC (31.0-37.0) g/dL RDW (11.5-15.5) % Plt Count (150-450) k/uL Neutrophils % % Lymphocytes % % Monocytes % % Eosinophils % % Basophils % % Neutrophils # (1.3-7.7) k/uL Lymphocytes # (1.0-4.8) k/uL Monocytes # (0-1.0) k/uL Eosinophils # (0-0.7) k/uL Basophils # (0-0.2) k/uL PT (9.0-12.0) sec INR (<1.2) APTT (22.0-30.0) sec Sodium (137-145) mmol/L Potassium (3.5-5.1) mmol/L Chloride (98-107) mmol/L Carbon Dioxide (22-30) mmol/L Anion Gap mmol/L BUN (7-17) mg/dL Creatinine (0.52-1.04) mg/dL Est GFR (CKD-EPI)AfAm (>60 ml/min/1.73 sqM) Est GFR (CKD-EPI)NonAf (>60 ml/min/1.73 sqM) Glucose (74-99) mg/dL Calcium (8.4-10.2) mg/dL Magnesium (1.6-2.3) mg/dL Total Bilirubin (0.2-1.3) mg/dL AST (14-36) U/L ALT (9-52) U/L Alkaline Phosphatase (38-126) U/L Troponin I <0.012 (0.000-0.034) ng/mL Total Protein (6.3-8.2) g/dL Albumin (3.5-5.0) g/dL Disposition Clinical Impression: Chest pain Disposition: ADMITTED IP TO THIS HOSP Condition: Fair Referrals: Andry Luna DO [Primary Care Provider] - 1-2 days Decision Time: 18:08
[2018-08-21 17:05] LABS: Basophils # (A) 0.1 k/uL (0-0.2); Basophils % (A) 1 %; Eosinophils # (A) 0.1 k/uL (0-0.7); Eosinophils % (A) 1 %; HCT 36.2 % (34.0-46.0); HGB 12.4 gm/dL (11.4-16.0); Lymphocytes # (A) 2.4 k/uL (1.0-4.8); Lymphocytes % (A) 26 %; MCH 30.5 pg (25.0-35.0); MCHC 34.2 g/dL (31.0-37.0); MCV 89.2 fL (80.0-100.0); Mean Platelet Volume 7.8; Monocytes # (A) 0.4 k/uL (0-1.0); Monocytes % (A) 5 %; Neutrophils # (A) 6.1 k/uL (1.3-7.7); Neutrophils % (A) 66 %; Platelet Count 240 k/uL (150-450); RBC 4.05 m/uL (3.80-5.40); RDW 13.7 % (11.5-15.5); WBC 9.3 k/uL (3.8-10.6)
[2018-08-21 17:14] LABS: INR 0.9 (<1.2); Partial Thromboplastin Time 22.8 sec (22.0-30.0)
[2018-08-21 17:22] LABS: ALT 20 U/L (9-52); AST 52 U/L (14-36); African American GFR (CKD) >90 (>60 ml/min/1.73 sqM); Albumin 5.3 g/dL (3.5-5.0); Alkaline Phosphatase 83 U/L (38-126); Anion Gap 16 mmol/L; Blood Urea Nitrogen 21 mg/dL (7-17); Carbon Dioxide 20 mmol/L (22-30); Chloride 106 mmol/L (98-107); Glucose 121 mg/dL (74-99); Magnesium 1.8 mg/dL (1.6-2.3); Potassium 3.9 mmol/L (3.5-5.1); Sodium 142 mmol/L (137-145); Total Bilirubin 0.8 mg/dL (0.2-1.3); Total Protein 8.6 g/dL (6.3-8.2)
--- NOTE | 2018-08-21 17:38 | XR ---
EXAMINATION TYPE: XR chest 2V DATE OF EXAM: 08/21/2018 COMPARISON: 01/29/2018 HISTORY: Abnormal cardiogram. Chest pain. TECHNIQUE: Frontal and lateral views of the chest are obtained. FINDINGS: Heart and mediastinum are normal. Lungs are clear. Diaphragm is normal. There are chest le ads. Bony thorax is intact. IMPRESSION: Normal chest. No change.
[2018-08-21] MEDS ORDERED: NITROGLYCERIN SL TABS 0.4 MG TAB SUBLINGUAL PRN (18:05)
[2018-08-21] MEDS: GABAPENTIN 400 MG CAP PO SCH (20:57)
[2018-08-21] MEDS ORDERED: METOPROLOL SUCCINATE (ER) 25 MG TAB.ER.24H PO SCH (21:00)
[2018-08-21] MEDS ORDERED: ZOLPIDEM 10 MG TAB PO SCH (21:30)
[2018-08-21] MEDS ORDERED: AMITRIPTYLINE HCL 25 MG TAB PO SCH (21:30)
[2018-08-21] MEDS ORDERED: FENOFIBRATE 160 MG TAB PO SCH (21:30)
[2018-08-21] MEDS: IBUPROFEN 800 MG TAB PO SCH (22:00)
[2018-08-21] MEDS: METHOCARBAMOL 750 MG TAB PO SCH (22:00)
[2018-08-21] MEDS: HYDROcodone/APAP 10-325MG 1 EACH TAB PO SCH (22:00)
[2018-08-22 03:55] VITALS: TEMP 98.3
[2018-08-22 06:11] LABS: Cholesterol 176 mg/dL (<200); HDL Cholesterol 43 mg/dL (40-60); LDL Cholesterol,Calculated 108 mg/dL (0-99); Triglycerides 124 mg/dL (<150)
[2018-08-22 07:39] VITALS: RESP 17
[2018-08-22] MEDS ORDERED: PARoxetine 20 MG TAB PO SCH (09:00)
[2018-08-22] MEDS ORDERED: ASPIRIN 325 MG TAB PO SCH (09:00)
[2018-08-22] MEDS ORDERED: DIGOXIN 125 MCG TAB PO SCH (09:00)
[2018-08-22] MEDS ORDERED: LEVOTHYROXINE 25 MCG TAB PO SCH (09:00)
--- NOTE | 2018-08-22 09:50 | P.CRDCN ---
History of Present Illness History of present illness: This is a pleasant 48-year-old female past medical history significant for SVT status post ablation in 2013, fibromyalgia and osteoarthritis. She follows in the office with Dr. Main. She went to urgent care yesterday for congestion, nasal drainage and sore throat. She has felt intermittent palpitations, diaphoresis and nausea. No shortness of breath, no chest pain. An EKG was done at the urgent care and she was sent in for further evaluation. She has an abnormal baseline EKG, which is chronic. She was recently seen in the office and underwent echocardiogram and Holter monitoring. She is seen and examined sitting up in bed in no acute distress. She denies chest pain, susana rtness of breath, dizziness or palpitations. She states she is compliant with medications. EKG on admission reveals sinus tachycardia heart rate 109 with T-wave inversions and ST depression in the precordial leads. Consistent with previous EKG's no acute changes. Chest xray is negative for an acute cardiopulmonary process. Laboratory data reviewed, WBC 9.3, hemoglobin 12.4, platelets 240, d-dimer 0.42, sodium 142, potassium 3.9, creatinine 0.83, magnesium 1.8, cardiac enzymes negative 3, LDL and HDL 43. Current cardiac medications include digoxin 125 g daily, Toprol 25 mg daily and fenofibrate 145 mg daily at bedtime. She recently underwent echocardiogram in the office March 2018 revealing preserved LV systolic function with ejection fraction 55% with mild mitral regurgitation. At the time of my exam: CONSTITUTIONAL: Denies fever. Denies chills. EYES: Denies blurred vision. Denies vision changes. Denies eye pain. EARS, NOSE, MOUTH & THROAT: Denies headache. Complains of sore throat, nasal drainage and congestion. Denies ear pain. CARDIOVASCULAR: Denies chest pain. Denies shortness of breath. Denies orthopnea. Denies PND. Denies palpitations. RESPIRATORY: Denies cough. GASTROINTESTINAL: Denies abdominal pain. Denies diarrhea. Denies constipation. Denies nausea. Denies vomiting. MUSCULOSKELETAL: Denies myalgias. INTEGUMENTARY: Denies pruitis. Denies rash. NEUROLOGIC: Denies numbness. Denies tingling. Denies weakness. PSYCHIATRIC: Denies anxiety. Denies depression. ENDOCRINE: Denies fatigue. Denies weight change. Denies polydipsia. Denies polyurina. GENITOURINARY: Denies burning, hematuria or urgency with micturation. HEMATOLOGIC: Denies history of anemia. Denies bleeding. Blood pressure 106/71 heart rate 63 afebrile maintaining oxygen saturation on room air GENERAL: This is a 48-year-old female in no apparent distress at the time of my examination. HEENT: Head is atraumatic, normocephalic. Pupils are equal, round. Sclerae anicteric. Conjunctivae are clear. Mucous membranes of the mouth are moist. Neck is supple. There is no jugular venous distention. No carotid bruit is heard. LUNGS: Clear to auscultation no wheezes, rales or rhonchi. No chest wall tenderness is noted on palpation or with deep breathing. HEART: Regular rate and rhythm without murmurs, rubs or gallops. S1 and S2 heard. ABDOMEN: Soft, nontender. Bowel sounds are heard. No organomegaly noted. EXTREMITIES: No evidence of peripheral edema and no calf tenderness noted. VASCULAR: Radial and dorsalis pedis pulses palpated, no evidence of clubbing. NEUROLOGIC: Patient is awake, alert and oriented x3. ASSESSMENT Abnormal EKG, baseline. Chronic. No acute changes. History of SVT s/p ablation 2012 Hypothyroidism Fibromyalgia PLAN EKG abnormalities are chronic. Recent echo normal, we will not repeat on this admission. Check TSH. Continue current medical regimen. Increase activity and ambulation in the halls. Follow up with Dr. Main in the office in 2-3 weeks. No further cardiac work-up. Thank you kindly for this consultation. Nurse Practitioner note has been reviewed, I agree with a documented findings and plan of care. Patient was seen and examined. Past Medical History Past Medical History: Atrial Fibrillation, Chest Pain / Angina, Deep Vein Thrombosis (DVT), Fibromyalgia, Musculoskeletal Disorder, Osteoarthritis (OA), Respiratory Disorder, Supraventricular Tachycardia (SVT), Syncope Additional Past Medical History / Comment(s): chronic bronchitis. chronic back pain ddd,herniated disc migarines, hx. kidney stones, permanent wheeze, "born with heart defect. peripheral neuropathy. History of Any Multi-Drug Resistant Organisms: None Reported Past Surgical History: Back Surgery, Cardiac Ablation, Cholecystectomy, Orthopedic Surgery Additional Past Surgical History / Comment(s): 14 back surgeries, geo knee arthroscopy, PAIN CLINIC PROCEDURES, Past Anesthesia/Blood Transfusion Reactions: No Reported Reaction Past Psychological History: Depression Smoking Status: Never smoker Past Alcohol Use History: None Reported Past Drug Use History: None Reported - Past Family History Mother Family Medical History: No Reported History Brother(s) Family Medical History: Cancer Additional Family Medical History / Comment(s): both brothers when they reached age 39. one from brain cancer and the other from complications from a congential heart problem. Father Family Medical History: Diabetes Mellitus Additional Family Medical History / Comment(s): pt's mother has hypertension, kidney stones, endometriosis Medications and Allergies Home Medications Medication Instructions Recorded Confirmed Type Gabapentin [Neurontin] 800 mg PO TID 06/25/13 08/21/18 History Ibuprofen [Motrin] 800 mg PO TID 06/25/13 08/21/18 History PARoxetine HCL [Paxil] 40 mg PO DAILY 06/25/13 08/21/18 History Hydrocodone/Acetaminophen 1 tab PO QID 09/08/13 08/21/18 History [Hydrocodone/Acetaminophen 10-325] Zolpidem Tartrate [Ambien] 10 mg PO HS 07/06/15 08/21/18 History Levothyroxine Sodium [Synthroid] 25 mcg PO DAILY 10/08/16 08/21/18 History Methocarbamol [Robaxin-750] 750 mg PO QID 10/08/16 08/21/18 History Digoxin [Lanoxin] 125 mcg PO DAILY 02/12/17 08/21/18 History Amitriptyline HCl [Elavil] 25 mg PO HS 08/21/18 08/21/18 History Fenofibrate Nanocrystallized 145 mg PO HS 08/21/18 08/21/18 History [Fenofibrate] Metoprolol Succinate [Toprol XL] 25 mg PO HS 08/21/18 08/21/18 History fentaNYL 50MCG/HR PATCH [Duragesic 50 mcg TRANSDERM Q72H 08/21/18 08/21/18 History 50MCG/HR] Allergies Allergy/AdvReac Type Severity Reaction Status Date / Time shellfish derived [Shellfish] Allergy Anaphylaxis Verified 08/21/18 20:25 Physical Exam Vitals: Vital Signs Temp Pulse Pulse Resp BP BP Pulse Ox 08/22/18 07:38 98.3 F 63 17 106/71 96 08/22/18 07:12 97 08/22/18 03:54 98.3 F 68 16 115/72 97 08/21/18 23:35 98.1 F 87 16 116/72 95 08/21/18 19:28 98.3 F 80 16 152/88 96 08/21/18 18:38 89 18 113/80 98 08/21/18 17:17 91 20 96 08/21/18 16:14 97.7 F 122 H 18 135/90 97 Intake and Output 08/21/18 08/22/18 08/22/18 22:59 06:59 14:59 Other: Voiding Method Toilet Toilet # Voids 2 Weight 77.111 kg Results 08/21/18 16:52 08/21/18 16:52 Cardiac Enzymes 08/21/18 08/21/18 08/21/18 Range/Units 16:52 16:52 22:28 AST 52 H (14-36) U/L Troponin I <0.012 <0.012 (0.000-0.034) ng/mL 08/22/18 Range/Units 05:24 AST (14-36) U/L Troponin I <0.012 (0.000-0.034) ng/mL Coagulation 08/21/18 Range/Units 16:52 PT 10.0 (9.0-12.0) sec APTT 22.8 (22.0-30.0) sec Lipids 08/22/18 Range/Units 05:24 Triglycerides 124 (<150) mg/dL Cholesterol 176 (<200) mg/dL HDL Cholesterol 43 (40-60) mg/dL CBC 08/21/18 Range/Units 16:52 WBC 9.3 (3.8-10.6) k/uL RBC 4.05 (3.80-5.40) m/uL Hgb 12.4 (11.4-16.0) gm/dL Hct 36.2 (34.0-46.0) % Plt Count 240 (150-450) k/uL Comprehensive Metabolic Panel 08/21/18 Range/Units 16:52 Sodium 142 (137-145) mmol/L Potassium 3.9 (3.5-5.1) mmol/L Chloride 106 (98-107) mmol/L Carbon Dioxide 20 L (22-30) mmol/L BUN 21 H (7-17) mg/dL Creatinine 0.83 (0.52-1.04) mg/dL Glucose 121 H (74-99) mg/dL Calcium 10.0 (8.4-10.2) mg/dL AST 52 H (14-36) U/L ALT 20 (9-52) U/L Alkaline Phosphatase 83 (38-126) U/L Total Protein 8.6 H (6.3-8.2) g/dL Albumin 5.3 H (3.5-5.0) g/dL Current Medications Generic Name Dose Route Start Last Admin Trade Name Freq PRN Reason Stop Dose Admin Hydrocodone Bitart/Acetaminophen 1 each 08/21/18 22:00 08/21/18 22:00 [place] 10 PO 1 each QID ARELIS Administration Amitriptyline HCl 25 mg 08/21/18 21:30 08/21/18 22:00 Elavil PO 25 mg HS ARELIS Administration Aspirin 325 mg 08/22/18 09:00 Aspirin PO DAILY [facility] Digoxin 125 mcg 08/22/18 09:00 Lanoxin PO DAILY [facility] Fenofibrate 160 mg 08/21/18 21:30 08/21/18 22:00 Lofibra PO 160 mg HS ARELIS Administration Fentanyl 1 patch 08/24/18 09:00 Duragesic 50mcg/Hr Patch TRANSDERM Q72H ARELIS Gabapentin 800 mg 08/21/18 22:00 08/21/18 20:57 Neurontin PO 800 mg TID ARELIS Administration Ibuprofen 800 mg 08/21/18 22:00 08/21/18 22:00 Motrin PO 800 mg TID ARELIS Administration Levothyroxine Sodium 25 mcg 08/22/18 09:00 Synthroid PO DAILY [facility] Methocarbamol 750 mg 08/21/18 22:00 08/21/18 22:00 Robaxin PO 750 mg QID ARELIS Administration Metoprolol Succinate 25 mg 08/21/18 21:00 08/21/18 20:58 Toprol Xl PO 25 mg HS ARELIS Administration Nitroglycerin 0.4 mg 08/21/18 18:05 Nitrostat SUBLINGUAL Q5M PRN Chest Pain Paroxetine HCl 40 mg 08/22/18 09:00 Paxil PO DAILY [facility] Zolpidem Tartrate 10 mg 08/21/18 21:30 08/21/18 21:59 Ambien PO 10 mg HS ARELIS Administration Intake and Output 08/21/18 08/22/18 08/22/18 22:59 06:59 14:59 Other: Voiding Method Toilet Toilet # Voids 2 Weight 77.111 kg 08/21/18 16:52 08/21/18 16:52
[2018-08-22] MEDS: HYDROcodone/APAP 10-325MG 1 EACH TAB PO SCH (10:00)
[2018-08-22] MEDS: METHOCARBAMOL 750 MG TAB PO SCH (10:00)
[2018-08-22] MEDS: GABAPENTIN 400 MG CAP PO SCH (10:00)
[2018-08-22] MEDS: IBUPROFEN 800 MG TAB PO SCH (10:01)
[2018-08-22 11:54] VITALS: BP 108/70; PULSE 71
--- NOTE | 2018-08-22 13:58 | P.HPIM ---
History of Present Illness H&P Date: 08/22/18 Chief Complaint: Abnormal EKG History of presenting complaint: This is a very pleasant 48-year-old patient of Dr. Maria R Luna. Chronic stable medical conditions include fibromyalgia, osteoarthritis, chronic herniated in the back causing gait dysfunction for which patient uses a cane, peripheral neuropathy and a congenital heart defect. Patient had previous SVT with cardiac ablation in the past. Patient does not have a history of atrial fibrillation. Patient for about 34 days been having upper respiratory tract infection symptoms. Has a nasal drainage going down to the throat has felt a bit hot and cold. Appetite had gone down. Yesterday started feeling a bit dizzy lightheaded. Decided to go down to local urgent care in town [facility]. Got an EKG done there and patient is told to come down to the ER. Patient is slight chest discomfort if she coughs. Because of her prior arrhythmia history she was sent to the hospital. Patient does state that the heart rate at the urgent care was 152 in the time she arrived to the hospital she was about 122. Review of systems: GEN.: Tired EYES: None HEENT: Postnasal drainage NECK: None RESPIRATORY: Slight cough and an CARDIOVASCULAR: None GASTROINTESTINAL: None GENITOURINARY: Chronic back pain MUSCULOSKELETAL: None LYMPHATICS: None HEMATOLOGICAL: None PSYCHIATRY: None NEUROLOGICAL: Chronic gait dysfunction Past medical history: DVT, fibromyalgia, osteoarthritis, supraventricular tachycardia, kidney stones 1 with a heart defect peripheral neuropathy, depression Past surgical history to include: Multiple back surgeries social history: lives alone. Does use a cane and sometimes a walker. No smoking or alcohol. He is on disability. Physical examination: VITAL SIGNS: 97.7, 122, 18, 135/90, 97% room air GENERAL: Average built, sitting up, comfortable. EYES: Pupils equal. Conjunctiva normal. HEENT: External appearance of nose and ears normal, oral cavity grossly normal. NECK: JVD not raised; masses not palpable. HEART: First and second heart sounds are normal; no edema. LUNGS: Respiratory rate normal; clear to auscultation. ABDOMEN: Soft, nontender, liver spleen not palpable, no masses palpable. PSYCH: Alert and oriented x3; mood and affect normal. NEUROLOGICAL: Cranial nerves grossly intact; no facial asymmetry, power and sensation grossly intact. LYMPHATICS: No lymph nodes palpable in the axilla and neck INVESTIGATIONS, reviewed in the clinical context: White count 9.3 hemoglobin 12.4 potassium 3.9 bun 21 creatinine 0.83 Troponin 3 negative TSH 2.9 EKG tracing personally reviewed by me shows diffuse T-wave changes in the anterior leads, with a heart rate of 109 Chest x-ray film personally reviewed by me shows no infiltrates Assessment: -Acute arrhythmia with tachycardia, patient's a prior history of SVT that was ablated. Admitted with the same. 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 Cardiology was consulted. Patient put on telemetry. Will hold off any symptomatic treatment for upper respiratory tract at that can worsen these arrhythmias. We'll keep under observation Past Medical History Past Medical History: Atrial Fibrillation, Chest Pain / Angina, Deep Vein Th rombosis (DVT), Fibromyalgia, Musculoskeletal Disorder, Osteoarthritis (OA), Respiratory Disorder, Supraventricular Tachycardia (SVT), Syncope Additional Past Medical History / Comment(s): chronic bronchitis. chronic back pain ddd,herniated disc migarines, hx. kidney stones, permanent wheeze, "born with heart defect. peripheral neuropathy. History of Any Multi-Drug Resistant Organisms: None Reported Past Surgical History: Back Surgery, Cardiac Ablation, Cholecystectomy, Orthopedic Surgery Additional Past Surgical History / Comment(s): 14 back surgeries, geo knee arthroscopy, PAIN CLINIC PROCEDURES, Past Anesthesia/Blood Transfusion Reactions: No Reported Reaction Past Psychological History: Depression Smoking Status: Never smoker Past Alcohol Use History: None Reported Past Drug Use History: None Reported - Past Family History Mother Family Medical History: No Reported History Brother(s) Family Medical History: Cancer Additional Family Medical History / Comment(s): both brothers when they reached age 39. one from brain cancer and the other from complications from a congential heart problem. Father Family Medical History: Diabetes Mellitus Additional Family Medical History / Comment(s): pt's mother has hypertension, kidney stones, endometriosis Medications and Allergies Home Medications Medication Instructions Recorded Confirmed Type Gabapentin [Neurontin] 800 mg PO TID 06/25/13 08/21/18 History Ibuprofen [Motrin] 800 mg PO TID 06/25/13 08/21/18 History PARoxetine HCL [Paxil] 40 mg PO DAILY 06/25/13 08/21/18 History Hydrocodone/Acetaminophen 1 tab PO QID 09/08/13 08/21/18 History [Hydrocodone/Acetaminophen 10-325] Zolpidem Tartrate [Ambien] 10 mg PO HS 07/06/15 08/21/18 History Levothyroxine Sodium [Synthroid] 25 mcg PO DAILY 10/08/16 08/21/18 History Methocarbamol [Robaxin-750] 750 mg PO QID 10/08/16 08/21/18 History Digoxin [Lanoxin] 125 mcg PO DAILY 02/12/17 08/21/18 History Amitriptyline HCl [Elavil] 25 mg PO HS 08/21/18 08/21/18 History Fenofibrate Nanocrystallized 145 mg PO HS 08/21/18 08/21/18 History [Fenofibrate] Metoprolol Succinate [Toprol XL] 25 mg PO HS 08/21/18 08/21/18 History fentaNYL 50MCG/HR PATCH [Duragesic 50 mcg TRANSDERM Q72H 08/21/18 08/21/18 History 50MCG/HR] Allergies Allergy/AdvReac Type Severity Reaction Status Date / Time shellfish derived [Shellfish] Allergy Anaphylaxis Verified 08/21/18 20:25 Physical Exam Vitals: Vital Signs Temp Pulse Pulse Resp BP BP Pulse Ox 08/22/18 11:52 98.3 F 71 17 108/70 96 08/22/18 07:38 98.3 F 63 17 106/71 96 08/22/18 07:12 97 08/22/18 03:54 98.3 F 68 16 115/72 97 08/21/18 23:35 98.1 F 87 16 116/72 95 08/21/18 19:28 98.3 F 80 16 152/88 96 08/21/18 18:38 89 18 113/80 98 08/21/18 17:17 91 20 96 08/21/18 16:14 97.7 F 122 H 18 135/90 97 Intake and Output 08/21/18 08/22/18 08/22/18 22:59 06:59 14:59 Other: Voiding Method Toilet Toilet Toilet # Voids 2 Weight 77.111 kg Results CBC & Chem 7: 08/21/18 16:52 08/21/18 16:52 Labs: Abnormal Lab Results - Last 24 Hours (Table) 08/21/18 08/22/18 Range/Units 16:52 05:24 Carbon Dioxide 20 L (22-30) mmol/L BUN 21 H (7-17) mg/dL Glucose 121 H (74-99) mg/dL AST 52 H (14-36) U/L Total Protein 8.6 H (6.3-8.2) g/dL Albumin 5.3 H (3.5-5.0) g/dL LDL Cholesterol, Calc 108 H (0-99) mg/dL Thrombosis Risk Factor Assmnt - Choose All That Apply Any of the Below Risk Factors Present?: Yes Each Factor Represents 1 point: Abnormal pulmonary function (COPD), Age 41-60 years Other Risk Factors: Yes Each Risk Factor Represents 3 Points: History of DVT/PE Other congenital or acquired thrombophilia - If yes, enter type in comment: No Thrombosis Risk Factor Assessment Total Risk Factor Score: 5 Thrombosis Risk Factor Assessment Level: High Risk
--- NOTE | 2018-08-26 22:27 | P.DS ---
Providers Date of admission: 08/21/18 18:05 Expected date of discharge: 08/22/18 Attending physician: En Redding Consults: 08/21/18 18:05 Consult Physician Urgent Consulting Provider: Clark Main Consult Reason/Comments: chest pain Do you want consulting provider notified?: Yes Primary care physician: Andry Luna [facility] Hospital Course: Hospital course: This is a very pleasant 48-year-old patient of Dr. Maria R Luna. Chronic stable medical conditions include fibromyalgia, osteoarthritis, chronic herniated in the back causing gait dysfunction for which patient uses a cane, peripheral neuropathy and a congenital heart defect. Patient had previous SVT with cardiac ablation in the past. Patient does not have a history of atrial fibrillation. Patient for about 34 days been having upper respiratory tract infection symptoms. Has a nasal drainage going down to the throat has felt a bit hot and cold. Appetite had gone down. Yesterday started feeling a bit dizz y lightheaded. Decided to go down to local urgent care in town [facility]. Got an EKG done there and patient is told to come down to the ER. Patient is slight chest discomfort if she coughs. Because of her prior arrhythmia history she was sent to the hospital. Patient does state that the heart rate at the urgent care was 152 in the time she arrived to the hospital she was about 122. Patient seen by cardiology. Per the notes dictated review the old chart. There was no obvious A. fib or any particular arrhythmia documented. Has patient is stable to okay the patient to be discharged. Patient is to follow with Dr. Abisai Grant Consultation: Dr. Snyder Physical examination: VITAL SIGNS: 97.7, 122, 18, 135/90, 97% room air GENERAL: Average built, sitting up, comfortable. EYES: Pupils equal. Conjunctiva normal. HEENT: External appearance of nose and ears normal, oral cavity grossly normal. NECK: JVD not raised; masses not palpable. HEART: First and second heart sounds are normal; no edema. LUNGS: Respiratory rate normal; clear to auscultation. ABDOMEN: Soft, nontender, liver spleen not palpable, no masses palpable. PSYCH: Alert and oriented x3; mood and affect normal. NEUROLOGICAL: Cranial nerves grossly intact; no facial asymmetry, power and sensation grossly intact. LYMPHATICS: No lymph nodes palpable in the axilla and neck INVESTIGATIONS, reviewed in the clinical context: White count 9.3 hemoglobin 12.4 potassium 3.9 bun 21 creatinine 0.83 Troponin 3 negative TSH 2.9 EKG tracing personally reviewed by me shows diffuse T-wave changes in the anterior leads, with a heart rate of 109 Chest x-ray film personally reviewed by me shows no infiltrates Assessment: -Acute arrhythmia with tachycardia, possible SVT 's - Chronic fibromyalgia -Chronic herniated disc of the lumbar spine -Chronic gait dysfunction uses a cane and/or a walker -Idiopathic peripheral neuropathy -Patient does not have a history of atrial fibrillation Disposition: Home Patient Condition at Discharge: Stable Plan - Discharge Summary Discharge Rx Participant: No New Discharge Prescriptions: Continue PARoxetine HCL [Paxil] 40 mg PO DAILY Ibuprofen [Motrin] 800 mg PO TID Gabapentin [Neurontin] 800 mg PO TID Hydrocodone/Acetaminophen [Hydrocodone/Acetaminophen 10-325] 1 tab PO QID Zolpidem Tartrate [Ambien] 10 mg PO HS Methocarbamol [Robaxin-750] 750 mg PO QID Levothyroxine Sodium [Synthroid] 25 mcg PO DAILY Digoxin [Lanoxin] 125 mcg PO DAILY Metoprolol Succinate [Toprol XL] 25 mg PO HS Fenofibrate Nanocrystallized [Fenofibrate] 145 mg PO HS Amitriptyline HCl [Elavil] 25 mg PO HS fentaNYL 50MCG/HR PATCH [Duragesic 50MCG/HR] 50 mcg TRANSDERM Q72H Discharge Medication List Gabapentin [Neurontin] 800 mg PO TID 06/25/13 [History] Ibuprofen [Motrin] 800 mg PO TID 06/25/13 [History] PARoxetine HCL [Paxil] 40 mg PO DAILY 06/25/13 [History] Hydrocodone/Acetaminophen [Hydrocodone/Acetaminophen 10-325] 1 tab PO QID 09/08/13 [History] Zolpidem Tartrate [Ambien] 10 mg PO HS 07/06/15 [History] Levothyroxine Sodium [Synthroid] 25 mcg PO DAILY 10/08/16 [History] Methocarbamol [Robaxin-750] 750 mg PO QID 10/08/16 [History] Digoxin [Lanoxin] 125 mcg PO DAILY 02/12/17 [History] Amitriptyline HCl [Elavil] 25 mg PO HS 08/21/18 [History] Fenofibrate Nanocrystallized [Fenofibrate] 145 mg PO HS 08/21/18 [History] Metoprolol Succinate [Toprol XL] 25 mg PO HS 08/21/18 [History] fentaNYL 50MCG/HR PATCH [Duragesic 50MCG/HR] 50 mcg TRANSDERM Q72H 08/21/18 [History] Follow up Appointment(s)/Referral(s): Clark Main MD [STAFF PHYSICIAN] - 09/06/18 4:45 pm Andry Luna DO [Primary Care Provider] - 1-2 days Patient Instructions/Handouts: Chest Pain (ED) Discharge Disposition: HOME SELF-CARE
== END 2018-08-22 14:44 | disposition home or self-care (01) ==
LOC: EC 16:08 → 1SOBS 18:05
PROVIDERS: ADMIT Hospitalist; ATTEND Hospitalist
DX: I49.9 Cardiac arrhythmia, unspecified (principal); R00.0 Tachycardia, unspecified; E87.2 Acidosis; R94.31 Abnormal electrocardiogram [ECG] [EKG]; Q24.9 Congenital malformation of heart, unspecified; J06.9 Acute upper respiratory infection, unspecified; M51.36 Other intervertebral disc degeneration, lumbar region; M79.7 Fibromyalgia; M19.90 Unspecified osteoarthritis, unspecified site; E03.9 Hypothyroidism, unspecified; J42 Unspecified chronic bronchitis; G60.9 Hereditary and idiopathic neuropathy, unspecified; G89.29 Other chronic pain; M54.9 Dorsalgia, unspecified; F32.9 Major depressive disorder, single episode, unspecified; I34.0 Nonrheumatic mitral (valve) insufficiency; G43.909 Migraine, unspecified, not intractable, without status migrainosus; R26.9 Unspecified abnormalities of gait and mobility; Z79.890 Hormone replacement therapy; Z79.891 Long term (current) use of opiate analgesic; Z79.899 Other long term (current) drug therapy; Z91.013 Allergy to seafood; Z86.718 Personal history of other venous thrombosis and embolism; Z87.442 Personal history of urinary calculi; Z90.49 Acquired absence of other specified parts of digestive tract; Z80.8 Family history of malignant neoplasm of other organs or systems; Z83.3 Family history of diabetes mellitus; Z82.49 Family history of ischemic heart disease and other diseases of the circulatory system; Z84.1 Family history of disorders of kidney and ureter; Z84.2 Family history of other diseases of the genitourinary system; Z82.79 Family history of other congenital malformations, deformations and chromosomal abnormalities
CPT/HCPCS: 99285; 36415; 94760; 93005; 85379; 80061; 80053; 84443; 83735; 84484 ×2; 85025; 85610; 85730; 71046; G0378 ×2

== ENCOUNTER 2019-01-07 01:12 | Emergency (ER) | payer OTHER ==
[2019-01-07 01:17] VITALS: TEMP 98.9
[2019-01-07] MEDS ORDERED: SODIUM CHLORIDE 0.9% 1,000 ML IV STA (01:22)
--- NOTE | 2019-01-07 02:07 | XR ---
EXAMINATION TYPE: XR chest 2V DATE OF EXAM: 01/07/2019 COMPARISON: NONE HISTORY: Chest pain TECHNIQUE: Frontal and lateral views of the chest are obtained. FINDINGS: Heart and mediastinum are normal. Lungs are clear. Diaphragm is normal. Bony thorax appear s normal. IMPRESSION: Normal chest. Normal heart.
[2019-01-07 02:17] LABS: ALT 24 U/L (9-52); AST 32 U/L (14-36); African American GFR (CKD) >90 (>60 ml/min/1.73 sqM); Albumin 4.6 g/dL (3.5-5.0); Alkaline Phosphatase 63 U/L (38-126); Anion Gap 9 mmol/L; Blood Urea Nitrogen 19 mg/dL (7-17); Calcium 9.3 mg/dL (8.4-10.2); Carbon Dioxide 24 mmol/L (22-30); Chloride 109 mmol/L (98-107); Glucose 99 mg/dL (74-99); Magnesium 1.5 mg/dL (1.6-2.3); Non-African American GFR(CKD) >90 (>60 ml/min/1.73 sqM); Potassium 3.9 mmol/L (3.5-5.1); Sodium 142 mmol/L (137-145); Total Bilirubin 0.3 mg/dL (0.2-1.3); Total Protein 7.1 g/dL (6.3-8.2)
[2019-01-07 02:20] LABS: Basophils % (A) 0 %; Eosinophils % (A) 0 %; HCT 30.8 % (34.0-46.0); HGB 10.4 gm/dL (11.4-16.0); Lymphocytes % (A) 34 %; MCHC 33.8 g/dL (31.0-37.0); MCV 91.9 fL (80.0-100.0); Mean Platelet Volume 7.2; Monocytes # (A) 0.5 k/uL (0-1.0); Monocytes % (A) 6 %; Neutrophils # (A) 5.2 k/uL (1.3-7.7); Neutrophils % (A) 58 %; Platelet Count 291 k/uL (150-450); RBC 3.35 m/uL (3.80-5.40); RDW 12.4 % (11.5-15.5); WBC 8.9 k/uL (3.8-10.6)
[2019-01-07 02:36] LABS: INR 0.9 (<1.2); Partial Thromboplastin Time 21.9 sec (22.0-30.0); Prothrombin Time 9.8 sec (9.0-12.0)
[2019-01-07] MEDS ORDERED: MAGNESIUM SULFATE-D5W PMX 1 GM in DEXTROSE/WATER 1 100ML.BAG IVPB ONE (03:08)
[2019-01-07] MEDS ORDERED: KETOROLAC 30 MG/ML 1 ML VIAL IVP ONE (03:12)
--- NOTE | 2019-01-07 03:13 | ED ---
Chest Pain HPI - General Chief Complaint: Chest Pain Stated Complaint: Bronchitis, chest discomfort Time Seen by Provider: 01/07/19 01:22 Source: patient Mode of arrival: ambulatory Limitations: no limitations - History of Present Illness Initial Comments: Belgica is a 48-year-old female with a history of A. fib and chronic bronchitis. Patient presents the emergency room today via private vehicle for evaluation of sternal pain. Patient reports that she's been treated for bronchitis for the past 3 weeks, she is and 2 rounds of steroids she is currently finishing up the second round she's also had a round of azithromycin with no change. Patient reports she's had a nonproductive cough for 2 weeks duration. Patient reports over the past few days she's developed sharp pain at the bottom of her sternum. Pain is worse with palpation deep breathing or coughing. Pain improves with rest. Pain seems to be positional. She doesn't have any exertional chest pain. Doesn't have any constant chest pain. She denies shortness of breath despite having cough. Patient denies any fevers chills nausea or vomiting. - Related Data Home Medications Medication Instructions Recorded Confirmed Gabapentin [Neurontin] 800 mg PO TID 06/25/13 08/21/18 Ibuprofen [Motrin] 800 mg PO TID 06/25/13 08/21/18 PARoxetine HCL [Paxil] 40 mg PO DAILY 06/25/13 08/21/18 Hydrocodone/Acetaminophen 1 tab PO QID 09/08/13 08/21/18 [Hydrocodone/Acetaminophen 10-325] Zolpidem Tartrate [Ambien] 10 mg PO HS 07/06/15 08/21/18 Levothyroxine Sodium [Synthroid] 25 mcg PO DAILY 10/08/16 08/21/18 Methocarbamol [Robaxin-750] 750 mg PO QID 10/08/16 08/21/18 Digoxin [Lanoxin] 125 mcg PO DAILY 02/12/17 08/21/18 Amitriptyline HCl [Elavil] 25 mg PO HS 08/21/18 08/21/18 Fenofibrate Nanocrystallized 145 mg PO HS 08/21/18 08/21/18 [Fenofibrate] Metoprolol Succinate [Toprol XL] 25 mg PO HS 08/21/18 08/21/18 fentaNYL 50MCG/HR PATCH [Duragesic 50 mcg TRANSDERM Q72H 08/21/18 08/21/18 50MCG/HR] Previous Rx's Medication Instructions Recorded Ibuprofen [Motrin] 600 mg PO Q6HR PRN #28 tab 01/07/19 Allergies Allergy/AdvReac Type Severity Reaction Status Date / Time shellfish derived [Shellfish] Allergy Anaphylaxis Verified 01/07/19 01:17 Review of Systems ROS Statement: Those systems with pertinent positive or pertinent negative responses have been documented in the HPI. ROS Other: All systems not noted in ROS Statement are negative. EKG Findings - EKG Comments: EKG Findings:: CT was obtained due to chest pain, EKG was obtained at 1:27 AM, rate 74 rhythm is narrow complex regular rhythm. Before each QRS, this is a sinus rhythm. There is a normal axis, normal intervals, AK 196, QRS 80, QTC is 424. There are no acute ST elevations. There are T-wave inversions in the inferior lateral leads however when compared EKG obtained in August there is no change in morphology. No evidence of acute ischemia or infarction. Past Medical History Past Medical History: Atrial Fibrillation, Chest Pain / Angina, Deep Vein Thrombosis (DVT), Fibromyalgia, Musculoskeletal Disorder, Osteoarthritis (OA), Respiratory Disorder, Supraventricular Tachycardia (SVT), Syncope Additional Past Medical History / Comment(s): chronic bronchitis. chronic back p ain ddd,herniated disc migarines, hx. kidney stones, permanent wheeze, "born with heart defect. peripheral neuropathy. History of Any Multi-Drug Resistant Organisms: None Reported Past Surgical History: Back Surgery, Cardiac Ablation, Cholecystectomy, Orthopedic Surgery Additional Past Surgical History / Comment(s): 14 back surgeries, geo knee arthroscopy, PAIN CLINIC PROCEDURES, Past Anesthesia/Blood Transfusion Reactions: No Reported Reaction Past Psychological History: Depression Smoking Status: Never smoker Past Alcohol Use History: None Reported Past Drug Use History: None Reported - Past Family History Mother Family Medical History: No Reported History Brother(s) Family Medical History: Cancer Additional Family Medical History / Comment(s): both brothers when they reached age 39. one from brain cancer and the other from complications from a congential heart problem. Father Family Medical History: Diabetes Mellitus Additional Family Medical History / Comment(s): pt's mother has hypertension, kidney stones, endometriosis General Exam - General Exam Comments Initial Comments: Physical Exam GENERAL: Patient is well-developed and well-nourished. Patient is nontoxic and well- hydrated and is in no distress. HENT: Normocephalic, Atraumatic. EYES: PERRL, EOMI PULMONARY: Unlabored respirations. No audible rales rhonchi or wheezing was noted. Chest wall tenderness with reproducible chest pain in the costochondral junction CARDIOVASCULAR: There is a regular rate and rhythm without any murmurs gallops or rubs. ABDOMEN: Soft and nontender with normal bowel sounds. SKIN: Skin is clear with no lesions or rashes and otherwise unremarkable. : Deferred NEUROLOGIC: Patient is alert and oriented x3. Moving all extremities spontaneously MUSCULOSKELETAL: Normal extremities with adequate strength and full range of motion. No lower extremity swelling or edema. No calf tenderness. PSYCHIATRIC: Normal psychiatric evaluation. Limitations: no limitations Course Vital Signs 01/07/19 01/07/19 01/07/19 01:15 01:30 02:00 Temperature 98.9 F Pulse Rate 96 Respiratory 20 Rate Blood Pressure 150/69 129/78 O2 Sat by Pulse 98 95 Oximetry 01/07/19 01/07/19 03:00 04:00 Temperature Pulse Rate 65 64 Respiratory 24 8 L Rate Blood Pressure 124/71 124/80 O2 Sat by Pulse 96 97 Oximetry Chest Pain [facility] [place] [facility] [place] The patient was seen and evaluated, history was obtained from patient, history and physical exam are concerning for pleuritic pain versus costochondritis versus possible pericarditis. Patient has had a URI for a number of weeks she's been treated with multiple medications with no improvement. Labs and imaging were obtained Labs resulted in were reviewed. Troponin is not elevated. Given the patient's pain is been persistent throughout the day seems very much musculoskeletal do not feel there is indication for repeat troponin I do feel the patient's lip is suffering from costochondritis she was treated with Toradol. 3 discussed the patient expresses relief. Patient really there is no evidence of pneumonia. Discussed with the patient no indication for antibiotics as this is likely a viral etiology. Advised the patient to return for any worsening chest pain shortness breath or new or concerning symptoms. All questions pertaining care were answered return parameters were discussed the patient was discharged home in stable condition. Disposition Clinical Impression: Atypical chest pain Disposition: HOME SELF-CARE Condition: Stable Instructions (If sedation given, give patient instructions): Costochondritis (ED) Prescriptions: Ibuprofen [Motrin] 600 mg PO Q6HR PRN #28 tab PRN Reason: Pain Is patient prescribed a controlled substance at d/c from ED?: No Referrals: Andry Luna DO [Primary Care Provider] - 1-2 days
[2019-01-07 04:15] VITALS: BP 124/80; PULSE 64; RESP 8
== END 2019-01-07 04:22 | disposition home or self-care (01) ==
LOC: EC 01:12
DX: R07.89 Other chest pain (principal); R05 Cough; I48.91 Unspecified atrial fibrillation; F32.9 Major depressive disorder, single episode, unspecified; Z79.890 Hormone replacement therapy; Z79.899 Other long term (current) drug therapy; Z91.013 Allergy to seafood; Z98.890 Other specified postprocedural states; Z86.718 Personal history of other venous thrombosis and embolism
CPT/HCPCS: 36415; 71046; 80053; 83735; 83880; 84484; 85025; 85610; 85730; 93005; 96361; 96365; 96375; 99285

== ENCOUNTER 2019-12-30 12:45 | Emergency (ER) | payer OTHER ==
[2019-12-30 12:52] VITALS: TEMP 98.9
--- NOTE | 2019-12-30 13:05 | ED ---
Abdominal Pain HPI - General Chief Complaint: Abdominal Pain Stated Complaint: Abd Pain - sent by [employer] Time Seen by Provider: 12/30/19 12:56 Source: patient Mode of arrival: wheelchair Limitations: no limitations - History of Present Illness Initial Comments: 49-year-old female presenting today for chief complaint of left-sided abdominal pain. Patient that she has had left sided abdominal pain for about the last 36 hours. Patient states she has had associated nausea vomiting and diarrhea she denies fevers of blood in her vomit or stools she denies dark tarry stools. Patient denies any chest pain shortness of breath or pain with deep inspiration she denies hemoptysis or leg swelling.. Patient denies any urinary symptoms such as dysuria urgency frequency or hematuria. She denies any radiation to the back. Patient initially presented urgent care where she was then sent to the emergency department. Pt also complaining of left upper dental pain. - Related Data Home Medications Medication Instructions Recorded Confirmed Gabapentin [Neurontin] 800 mg PO TID 06/25/13 12/30/19 Ibuprofen [Motrin] 800 mg PO TID 06/25/13 12/30/19 PARoxetine HCL [Paxil] 40 mg PO DAILY 06/25/13 12/30/19 Hydrocodone/Acetaminophen 1 tab PO QID PRN 09/08/13 12/30/19 [Hydrocodone/Acetaminophen 10-325] Levothyroxine Sodium [Synthroid] 25 mcg PO DAILY 10/08/16 12/30/19 Methocarbamol [Robaxin-750] 750 mg PO QID 10/08/16 12/30/19 Digoxin [Lanoxin] 125 mcg PO DAILY 02/12/17 12/30/19 Amitriptyline HCl [Elavil] 25 mg PO HS 08/21/18 12/30/19 Fenofibrate Nanocrystallized 145 mg PO HS 08/21/18 12/30/19 [Fenofibrate] Metoprolol Succinate [Toprol XL] 25 mg PO HS 08/21/18 12/30/19 fentaNYL 50MCG/HR PATCH [Duragesic 50 mcg TRANSDERM Q72H 08/21/18 12/30/19 50MCG/HR] Zolpidem [Ambien] 5 mg PO HS PRN 12/30/19 12/30/19 Previous Rx's Medication Instructions Recorded Amoxic-Pot Clav 875-125Mg 1 tab PO Q12HR 7 Days #14 tab 12/30/19 [Augmentin 875-125] Pantoprazole Sodium [Protonix] 20 mg PO DAILY 4 Days #4 tablet. 12/30/19 Allergies Allergy/AdvReac Type Severity Reaction Status Date / Time shellfish derived [Shellfish] Allergy Anaphylaxis Verified 12/30/19 14:17 Review of Systems ROS Statement: Those systems with pertinent positive or pertinent negative responses have been documented in the HPI. ROS Other: All systems not noted in ROS Statement are negative. Past Medical History Past Medical History: Atrial Fibrillation, Chest Pain / Angina, Deep Vein Thrombosis (DVT), Fibromyalgia, Musculoskeletal Disorder, Osteoarthritis (OA), Respiratory Disorder, Supraventricular Tachycardia (SVT), Syncope Additional Past Medical History / Comment(s): chronic bronchitis. chronic back pain ddd,herniated disc migarines, hx. kidney stones, permanent wheeze, "born with heart defect. peripheral neuropathy. History of Any Multi-Drug Resistant Organisms: None Reported Past Surgical History: Back Surgery, Cardiac Ablation, Cholecystectomy, Orthopedic Surgery Additional Past Surgical History / Comment(s): 14 back surgeries, geo knee arthroscopy, PAIN CLINIC PROCEDURES, Past Anesthesia/Blood Transfusion Reactions: No Reported Reaction Past Psychological History: Depression Past Alcohol Use History: None Reported Past Drug Use History: None Reported - Past Family History Mother Family Medical History: No Reported History Brother(s) Family Medical History: Cancer Additional Family Medical History / Comment(s): both brothers when they reached age 39. one from brain cancer and the other from complications from a congential heart problem. Father Family Medical History: Diabetes Mellitus Additional Family Medical History / Comment(s): pt's mother has hypertension, kidney stones, endometriosis General Exam - General Exam Comments Initial Comments: General: The patient is awake and alert, in no distress Eye: Pupils are equal, round and reactive to light, extra-ocular movements are intact. No nystagmus. There is normal conjunctiva bilaterally. No signs of icterus. Ears, nose, mouth and throat: There are moist mucous membranes and no oral lesions. Neck: The neck is supple, there is no tenderness or JVD. Cardiovascular: There is a regular rate and rhythm. No murmur, rub or gallop is appreciated. Respiratory: Lungs are clear to auscultation, respirations are non-labored, breath sounds are equal. No wheezes, stridor, rales, or rhonchi. Gastrointestinal: Soft, non-distended, LUQ tenderness, abdomen without masses or organomegaly noted. There is no rebound or guarding present. No pulsatile masses no left lower quadrant pain no right lower quadrant pain no guarding rigidity no psoas sign, no right lower quadrant or McBurney's point tenderness. Musculoskeletal: Normal ROM, no tenderness. Strength 5/5. Sensation intact. Radial pulses equal bilaterally 2+. Neurological: A&O x 3. CN II-XII intact grossly, There are no obvious motor or sensory deficits. Coordination appears grossly intact. Speech is normal. Skin: Skin is warm and dry and no rashes or lesions are noted. Psychiatric: Cooperative, appropriate mood & affect, normal judgment. Limitations: no limitations Course Vital Signs 12/30/19 12/30/19 12:47 15:07 Temperature 98.9 F Pulse Rate 69 86 Respiratory 18 16 Rate Blood Pressure 136/68 136/84 O2 Sat by Pulse 98 99 Oximetry Medical Decision Making - Medical Decision Making 49yo presneting LUQ tendenress, denies chest pain, dyspnea pain with inspiration. admits to vomiting, diarrhea. no fevers. no cough. pain very reproducible on exam. pt has left upper dental pain. patient has mild leukocytosis without left shift. no RLQ pain. CT revealed thickened appendix without secondary signs. Or appendicolith. CT reviewed by Dr. Maradiaga and re- reviewd by second radiologist Dr. Vasquez who felt appendix was not thickened. No signs of appendicitis. Patient exam does not clinically correlate. pt will be discharged per attending recommending with return parameters as well as on oral antibtioics [facility] dentist f/u for suspected dental infection. Swelling below the angle of the jaw under the tongue or difficulty tolerating secretions no signs of Kobi's angina - Lab Data Result diagrams: 12/30/19 13:22 12/30/19 13:22 Lab Results 12/30/19 12/30/19 12/30/19 Range/Units 13:22 13:22 13:22 WBC 13.4 H (3.8-10.6) k/uL RBC 3.62 L (3.80-5.40) m/uL Hgb 11.6 (11.4-16.0) gm/dL Hct 33.0 L (34.0-46.0) % MCV 91.3 (80.0-100.0) fL MCH 32.2 (25.0-35.0) pg MCHC 35.2 (31.0-37.0) g/dL RDW 12.8 (11.5-15.5) % Plt Count 296 (150-450) k/uL MPV 8.7 Neutrophils % 49 % Lymphocytes % 44 % Monocytes % 4 % Eosinophils % 2 % Basophils % 1 % Neutrophils # 6.5 (1.3-7.7) k/uL Lymphocytes # 5.8 H (1.0-4.8) k/uL Monocytes # 0.6 (0-1.0) k/uL Eosinophils # 0.2 (0-0.7) k/uL Basophils # 0.2 (0-0.2) k/uL Manual Slide Review Performed Sodium 141 (137-145) mmol/L Potassium 4.3 (3.5-5.1) mmol/L Chloride 104 (98-107) mmol/L Carbon Dioxide 25 (22-30) mmol/L Anion Gap 12 mmol/L BUN 20 H (7-17) mg/dL Creatinine 0.65 (0.52-1.04) mg/dL Est GFR (CKD-EPI)AfAm >90 (>60 ml/min/1.73 sqM) Est GFR (CKD-EPI)NonAf >90 (>60 ml/min/1.73 sqM) Glucose 96 (74-99) mg/dL Calcium 9.4 (8.4-10.2) mg/dL Total Bilirubin 0.6 (0.2-1.3) mg/dL AST 33 (14-36) U/L ALT 14 (4-34) U/L Alkaline Phosphatase 51 (38-126) U/L Total Protein 7.6 (6.3-8.2) g/dL Albumin 4.8 (3.5-5.0) g/dL Amylase 62 (30-110) U/L Lipase 106 (23-300) U/L Urine Color Yellow Urine Appearance Clear (Clear) Urine pH 6.0 (5.0-8.0) Ur Specific [place] 1.039 H (1.001-1.035) Urine Protein Trace H (Negative) Urine Glucose (UA) Negative (Negative) Urine Ketones Negative (Negative) Urine Blood Negative (Negative) Urine Nitrite Negative (Negative) Urine Bilirubin Negative (Negative) Urine Urobilinogen <2.0 (<2.0) mg/dL Ur Leukocyte Esterase Small H (Negative) Urine RBC 1 (0-5) /hpf Urine WBC 2 (0-5) /hpf Ur Squamous Epith Cells 2 (0-4) /hpf Urine Bacteria Occasional H (None) /hpf Urine Mucus Rare H (None) /hpf Disposition Clinical Impression: Colicky LUQ abdominal pain, Vomiting and diarrhea Disposition: HOME SELF-CARE Condition: Good Instructions (If sedation given, give patient instructions): Abdominal Pain (ED) Additional Instructions: Please use medication as discussed. Please follow-up with family doctor in the next 2 days. Please return to emergency room if the symptoms increase or worsen or for any other concerns. Prescriptions: Amoxic-Pot Clav 875-125Mg [Augmentin 875-125] 1 tab PO Q12HR 7 Days #14 tab Pantoprazole Sodium [Protonix] 20 mg PO DAILY 4 Days #4 tablet.dr Is patient prescribed a controlled substance at d/c from ED?: No Referrals: Andry Luna DO [Primary Care Provider] - 1-2 days Time of Disposition: 14:57
[2019-12-30] MEDS ORDERED: PANTOPRAZOLE 40 MG/10 ML VIAL IVP STA (13:06)
[2019-12-30] MEDS ORDERED: SODIUM CHLORIDE 0.9% 1,000 ML IV ONE (13:06)
[2019-12-30] MEDS ORDERED: ONDANSETRON 4 MG/2 ML VIAL IVP STA (13:06)
[2019-12-30] MEDS ORDERED: SODIUM CHLORIDE 0.9% 1,000 ML IV SCH (13:15)
[2019-12-30 13:37] LABS: Basophils # (A) 0.2 k/uL (0-0.2); Basophils % (A) 1 %; Eosinophils # (A) 0.2 k/uL (0-0.7); Eosinophils % (A) 2 %; HGB 11.6 gm/dL (11.4-16.0); Lymphocytes # (A) 5.8 k/uL (1.0-4.8); Lymphocytes % (A) 44 %; MCH 32.2 pg (25.0-35.0); MCHC 35.2 g/dL (31.0-37.0); MCV 91.3 fL (80.0-100.0); Mean Platelet Volume 8.7; Monocytes # (A) 0.6 k/uL (0-1.0); Monocytes % (A) 4 %; Neutrophils # (A) 6.5 k/uL (1.3-7.7); Neutrophils % (A) 49 %; Platelet Count 296 k/uL (150-450); RBC 3.62 m/uL (3.80-5.40); RDW 12.8 % (11.5-15.5); WBC 13.4 k/uL (3.8-10.6)
[2019-12-30 13:55] LABS: ALT 14 U/L (4-34); African American GFR (CKD) >90 (>60 ml/min/1.73 sqM); Albumin 4.8 g/dL (3.5-5.0); Amylase 62 U/L (30-110); Anion Gap 12 mmol/L; Blood Urea Nitrogen 20 mg/dL (7-17); Calcium 9.4 mg/dL (8.4-10.2); Carbon Dioxide 25 mmol/L (22-30); Chloride 104 mmol/L (98-107); Glucose 96 mg/dL (74-99); Lipase 106 U/L (23-300); Non-African American GFR(CKD) >90 (>60 ml/min/1.73 sqM); Sodium 141 mmol/L (137-145); Total Bilirubin 0.6 mg/dL (0.2-1.3); Total Protein 7.6 g/dL (6.3-8.2)
[2019-12-30 14:00] LABS: AST 33 U/L (14-36); Alkaline Phosphatase 51 U/L (38-126); Potassium 4.3 mmol/L (3.5-5.1)
[2019-12-30 14:10] LABS: Appearance,Urine Clear (Clear); Bacteria,Urine Occasional /hpf; Bilirubin,Urine Negative (Negative); Blood,Urine Negative (Negative); Color,Urine Yellow; Glucose,Urine (UA) Negative (Negative); Ketones,Urine Negative (Negative); Leukocyte Esterase,Urine Small (Negative); Mucus,Urine Rare /hpf; Nitrite,Urine Negative (Negative); Protein,Urine Trace (Negative); RBC,Urine 1 /hpf (0-5); Specific Gravity,Urine 1.039 (1.001-1.035); Squamous Epithelial Cell,Urine 2 /hpf (0-4); Urobilinogen,Urine <2.0 mg/dL (<2.0); WBC,Urine 2 /hpf (0-5)
--- NOTE | 2019-12-30 14:31 | CT ---
EXAMINATION TYPE: CT abdomen pelvis w con DATE OF EXAM: 12/30/2019 COMPARISON: None HISTORY: Left sided pain, vomitting, diarrhea CT DLP: 917.6 mGycm CONTRAST: CT scan of the abdomen and pelvis is performed without Oral Contrast and with IV Contrast, patient in jected with 100 ml mL of Isovue 300. FINDINGS: LUNG BASES-: No visible nodule. No infiltrate. LIVER/GB: The gallbladder is surgically absent. Underlying fatty hepatic infiltration noted and mil d hepatomegaly. No space occupying hepatic lesion. Biliary tree is of normal caliber. PANCREAS: No inflammation. No distinct mass. SPLEEN: No splenic enlargement. No lesion seen. ADRENALS: No nodule. No thickening. KIDNEYS/BLADDER: No hydronephrosis. No nephrolithiasis. No distinct renal mass. Urinary bladder g rossly unremarkable. BOWEL: The appendix appears mildly thickened at its distal aspect measuring 1 cm while does appear no rmal proximally and at its midportion. The appendix extends from right to left and terminates at the level of the mid sacrum. No surrounding inflammatory changes appreciated with certainty. Clinical cor relation is advised. Normal bowel caliber. No inflammation. GENITAL ORGANS: No gross abnormality. LYMPH NODES: No greater than 1cm abdominal or pelvic lymph nodes are appreciated. AORTA: No significant abnormality. OSSEOUS STRUCTURES: No significant abnormality is seen. OTHER: No significant additional abnormality is seen. IMPRESSION: 1. Thickening of the appendix without periappendiceal inflammatory change at this time. Clinical holland elation recommended with regards to exclusion of developing appendicitis. 2. Fatty liver and mild hepatomegaly.
[2019-12-30 15:08] VITALS: BP 136/84; PULSE 86; RESP 16
== END 2019-12-30 15:07 | disposition home or self-care (01) ==
LOC: EC 12:45
DX: R10.12 Left upper quadrant pain (principal); R19.7 Diarrhea, unspecified; R11.10 Vomiting, unspecified; F32.9 Major depressive disorder, single episode, unspecified; I48.91 Unspecified atrial fibrillation; M79.7 Fibromyalgia; M19.90 Unspecified osteoarthritis, unspecified site; Z86.718 Personal history of other venous thrombosis and embolism; Z79.01 Long term (current) use of anticoagulants; Z86.69 Personal history of other diseases of the nervous system and sense organs; Z79.1 Long term (current) use of non-steroidal anti-inflammatories (NSAID); Z79.899 Other long term (current) drug therapy; Z91.013 Allergy to seafood; D72.829 Elevated white blood cell count, unspecified; K08.89 Other specified disorders of teeth and supporting structures; Z90.49 Acquired absence of other specified parts of digestive tract
CPT/HCPCS: 36415; 80053; 82150; 83690; 85025; 81001; 74177; 99284; 96374; 96375; 96361 ×2; J2405; C9113; Q9967

== ENCOUNTER → 2020-03-03 | Outpatient (CLI) | payer OTHER ==
--- NOTE | 2020-03-05 08:06 | MM ---
Reason for exam: screening (asymptomatic). Last mammogram was performed 2 years and 6 months ago. History: Patient is nulliparous. Physical Findings: A clinical breast exam by your physician is recommended on an annual basis and results should be correlated with mammographic findings. MG Screening Mammo w CAD Bilateral CC and MLO view(s) were taken. Prior study comparison: September 13, 2017, bilateral MG screening mammo w CAD. October 19, 2015, bilateral MG screening mammo w CAD. The breast tissue is heterogeneously dense. This may lower the sensitivity of mammography. No significant changes when compared with prior studies. ASSESSMENT: Negative, BI-RAD 1 RECOMMENDATION: Routine screening mammogram of both breasts in 1 year.
== END | disposition home or self-care (01) ==
LOC: RADMAMWWP 13:17
PROVIDERS: ATTEND Family Medicine
DX: Z12.31 Encounter for screening mammogram for malignant neoplasm of breast (principal)
CPT/HCPCS: 77067

== ENCOUNTER → 2020-09-23 | Outpatient (CLI) | payer OTHER | END | disposition home or self-care (01) | LOC: LABWHC1 15:15 | PROVIDERS: ATTEND Nurse Practitioner Family | DX: Z20.822 Contact with and (suspected) exposure to COVID-19 (principal) | CPT/HCPCS: U0003; C9803; U0005 ==

== ENCOUNTER 2021-07-14 09:18 | Day surgery (SDC) | payer OTHER ==
[2021-07-13 08:36] VITALS: BMI 24.9
--- NOTE | 2021-07-14 08:03 | P.GSHP ---
History of Present Illness H&P Date: 07/14/21 CHIEF COMPLAINT: GERD HISTORY OF PRESENT ILLNESS: The patient is a 51-year-old female who presents reports gastroesophageal reflux disease. Upper endoscopy was offered for further evaluation and management. PAST MEDICAL HISTORY: Please see list. PAST SURGICAL HISTORY: Please see list. MEDICATIONS: Please see list. ALLERGIES: Please see list. SOCIAL HISTORY: No illicit drug use FAMILY HISTORY: No reports of Crohn disease or ulcerative colitis. REVIEW OF ORGAN SYSTEMS: CONSTITUTIONAL: No reports of fevers or chills. GI: Denies any blood in stools or constipation. PHYSICAL EXAM: VITAL SIGNS: Stable GENERAL: Well-developed and pleasant in no acute distress. HEENT: No scleral icterus. Extraocular movements grossly intact. Moist buccal mucosa. NECK: Supple without lymphadenopathy. CHEST: Unlabored respirations. Equal bilateral excursions. CARDIOVASCULAR: Regular rate and rhythm. Distal 2+ pulses. ABDOMEN: Soft, nondistended. MUSCULOSKELETAL: No clubbing, cyanosis, or edema. ASSESSMENT: 1. Gastroesophageal reflux disease PLAN: 1. Recommend proceeding with an upper endoscopy Past Medical History Past Medical History: Atrial Fibrillation, Chest Pain / Angina, Deep Vein Thrombosis (DVT), Fibromyalgia, Musculoskeletal Disorder, Osteoarthritis (OA), Respiratory Disorder, Supraventricular Tachycardia (SVT), Syncope Additional Past Medical History / Comment(s): chronic bronchitis. chronic back pain ddd,herniated disc ,migarines, hx. kidney stones, permanent wheeze, "born with heart defect. peripheral neuropathy. sharp shooting pain on left side with n/v History of Any Multi-Drug Resistant Organisms: None Reported Past Surgical History: Back Surgery, Cardiac Ablation, Cholecystectomy, Orthopedic Surgery Additional Past Surgical History / Comment(s): 14 back surgeries, geo knee arthroscopy, PAIN CLINIC PROCEDURES, egd Past Anesthesia/Blood Transfusion Reactions: No Reported Reaction Smoking Status: Never smoker - Past Family History Mother Family Medical History: No Reported History Brother(s) Family Medical History: Cancer Additional Family Medical History / Comment(s): both brothers when they reached age 39. one from brain cancer and the other from complications from a congential heart problem. Father Family Medical History: Diabetes Mellitus Additional Family Medical History / Comment(s): pt's mother has hypertension, kidney stones, endometriosis Medications and Allergies Home Medications Medication Instructions Recorded Confirmed Type RX: Gabapentin [Neurontin] 800 mg PO TID 05/21/14 06/08/22 History RX: Ibuprofen [Motrin] 800 mg PO TID 06/25/13 07/13/21 History RX: PARoxetine HCL [Paxil] 40 mg PO DAILY 06/25/13 07/13/21 History RX: Hydrocodone/Acetaminophen 1 tab PO QID PRN 09/08/13 07/13/21 History [Hydrocodone/Acetaminophen 10-325] RX: Levothyroxine Sodium 25 mcg PO DAILY 10/08/16 07/13/21 History [Synthroid] RX: Methocarbamol [Robaxin-750] 750 mg PO QID 10/08/16 07/13/21 History RX: Digoxin [Lanoxin] 125 mcg PO DAILY 02/12/17 07/13/21 History RX: Fenofibrate Nanocrystallized 145 mg PO HS 08/21/18 07/13/21 History [Fenofibrate] RX: Metoprolol Succinate [Toprol 25 mg PO HS 08/21/18 07/13/21 History XL] RX: fentaNYL 50MCG/HR PATCH 50 mcg TRANSDERM Q72H 08/21/18 07/13/21 History [Duragesic 50MCG/HR] Pantoprazole Sodium [Protonix] 20 mg PO DAILY 4 Days #4 tablet. 12/30/19 07/13/21 Rx Zolpidem [Ambien] 5 mg PO HS PRN 12/30/19 07/13/21 History RX: Amitriptyline HCl 50 mg PO HS 07/13/21 07/13/21 History Allergies Allergy/AdvReac Type Severity Reaction Status Date / Time shellfish derived [Shellfish] Allergy Anaphylaxis Verified 12/30/19 14:17
[2021-07-14 09:53] VITALS: TEMP 97.2
[2021-07-14] MEDS ORDERED: LACTATED RINGERS 1,000 ML IV ONE (10:05)
[2021-07-14] MEDS ORDERED: LIDOCAINE 1% (10MG/ML) FOR IV START INTRADERMA ONE (10:06)
[2021-07-14] MEDS ORDERED: PROPOFOL 10 MG/ML 20 ML VIAL IV ONE (10:41)
[2021-07-14] MEDS ORDERED: LIDOCAINE 2% INJ 20 MG/ML (2 ML VIAL) ONE (10:41)
--- NOTE | 2021-07-14 10:56 | P.PCN ---
Date of Procedure: 07/14/21 Description of Procedure: PREOPERATIVE DIAGNOSIS: History of gastric ulcers Gastroesophageal reflux disease. POSTOPERATIVE DIAGNOSIS: Retained gastric food Gastroparesis Gastroesophageal reflux disease OPERATION: Esophagogastroduodenoscopy SURGEON: Michaela Maldonado MD ANESTHESIA: MAC. INDICATIONS: The patient is a 51-year-old female who presents with history of ulcers and reflux disease. Benefits and risks of the procedure were described. Informed consent was obtained. DESCRIPTION: The patient was brought into the endoscopy suite and laid in the left lateral decubitus position. An Olympus gastroscope was passed along the posterior oropharynx down to the distal esophagus where the squamocolumnar junction was encountered at 38 cm from the incisors. The stomach was entered and no bile reflux was found. Additional findings are listed below. The first through third portion of the duodenum was examined. Retroflexion of the scope demonstrated moderate-sized food within the stomach blocking view of the hiatus. The squamocolumnar junction demonstrated LA grade B erosive esophagitis. The stomach was desufflated. The patient tolerated the procedure well. FINDINGS: Squamocolumnar junction 38 cm from the incisors. Diaphragmatic hiatus at 38 cm. Hill grade indeterminant due to moderate food within the stomach LA grade B erosive esophagitis. No active duodenitis.with recent bleed RECOMMENDATIONS: Upper endoscopy as needed. Reglan 10 mg 3 times daily started Plan - Discharge Summary Discharge Rx Participant: No New Discharge Prescriptions: New Metoclopramide [Reglan] 10 mg PO ACHS #30 tab Continue PARoxetine HCL [Paxil] 40 mg PO DAILY Ibuprofen [Motrin] 800 mg PO TID Gabapentin [Neurontin] 800 mg PO TID Hydrocodone/Acetaminophen [Hydrocodone/Acetaminophen 10-325] 1 tab PO QID PRN PRN Reason: Pain Methocarbamol [Robaxin-750] 750 mg PO QID Levothyroxine Sodium [Synthroid] 25 mcg PO DAILY Digoxin [Lanoxin] 125 mcg PO DAILY Metoprolol Succinate [Toprol XL] 25 mg PO HS Fenofibrate Nanocrystallized [Fenofibrate] 145 mg PO HS fentaNYL 50MCG/HR PATCH [Duragesic 50MCG/HR] 50 mcg TRANSDERM Q72H Zolpidem [Ambien] 5 mg PO HS PRN PRN Reason: Insomnia Pantoprazole Sodium [Protonix] 20 mg PO DAILY 4 Days #4 tablet.dr Amitriptyline HCl 50 mg PO HS Discharge Medication List Gabapentin [Neurontin] 800 mg PO TID 06/25/13 [History] Ibuprofen [Motrin] 800 mg PO TID 06/25/13 [History] PARoxetine HCL [Paxil] 40 mg PO DAILY 06/25/13 [History] Hydrocodone/Acetaminophen [Hydrocodone/Acetaminophen 10-325] 1 tab PO QID PRN 0 09/08/13 [History] Levothyroxine Sodium [Synthroid] 25 mcg PO DAILY 10/08/16 [History] Methocarbamol [Robaxin-750] 750 mg PO QID 10/08/16 [History] Digoxin [Lanoxin] 125 mcg PO DAILY 02/12/17 [History] Fenofibrate Nanocrystallized [Fenofibrate] 145 mg PO HS 08/21/18 [History] Metoprolol Succinate [Toprol XL] 25 mg PO HS 08/21/18 [History] fentaNYL 50MCG/HR PATCH [Duragesic 50MCG/HR] 50 mcg TRANSDERM Q72H 08/21/18 [History] Pantoprazole Sodium [Protonix] 20 mg PO DAILY 4 Days #4 tablet. 12/30/19 [Rx] Zolpidem [Ambien] 5 mg PO HS PRN 12/30/19 [History] Amitriptyline HCl 50 mg PO HS 07/13/21 [History] Metoclopramide [Reglan] 10 mg PO ACHS #30 tab 07/14/21 [Rx] Follow up Appointment(s)/Referral(s): Michaela Maldonado MD [STAFF PHYSICIAN] - 08/02/21 Patient Instructions/Handouts: Gastroparesis (DC) Discharge Disposition: HOME SELF-CARE
[2021-07-14 11:15] VITALS: BP 104/69; PULSE 65; RESP 16
== END 2021-07-14 11:25 | disposition home or self-care (01) ==
LOC: ORWHC2ENDO 09:18
PROVIDERS: ATTEND Surgery Plastic and Reconstructive Surgery
DX: K21.00 Gastro-esophageal reflux disease with esophagitis, without bleeding (principal); I48.91 Unspecified atrial fibrillation; M79.7 Fibromyalgia; M19.90 Unspecified osteoarthritis, unspecified site; I47.1 Supraventricular tachycardia; R55 Syncope and collapse; J42 Unspecified chronic bronchitis; G89.29 Other chronic pain; M54.9 Dorsalgia, unspecified; G43.909 Migraine, unspecified, not intractable, without status migrainosus; G62.9 Polyneuropathy, unspecified; Z87.19 Personal history of other diseases of the digestive system; Z86.718 Personal history of other venous thrombosis and embolism; Z87.442 Personal history of urinary calculi; Z90.49 Acquired absence of other specified parts of digestive tract; Z98.890 Other specified postprocedural states; Z79.899 Other long term (current) drug therapy; Z79.890 Hormone replacement therapy; Z91.013 Allergy to seafood; Z80.8 Family history of malignant neoplasm of other organs or systems
CPT/HCPCS: 43235; J2704; J2001

== ENCOUNTER 2021-07-25 10:21 | Emergency (ER) | payer OTHER ==
[2021-07-25 11:11] VITALS: TEMP 98.1
[2021-07-25] MEDS ORDERED: HYDROmorphone 1 MG/ML 1 ML SYRINGE IM STA (11:35)
[2021-07-25] MEDS ORDERED: DEXAMETHASONE SOD PHOSPHATE 10 MG/ML 1 ML VIAL IM STA (11:35)
--- NOTE | 2021-07-25 11:59 | ED ---
General Adult HPI - General Chief complaint: Back Pain/Injury Stated complaint: Back pain Time Seen by Provider: 07/25/21 11:22 Source: patient, RN notes reviewed, old records reviewed Mode of arrival: ambulatory Limitations: no limitations - History of Present Illness Initial comments: 51-year-old female with acute on chronic back pain. Patient attempted to follow-up with her neurologist but was unable to make An appointment. She states that she's had some low back pain which is chronic but is causing her to have several falls. She fell most recently yesterday. She did have some injury to her mid and lower back. She states that she's been told by a spinal surgeon that there is nothing they can do for the lower spine. She scheduled for cer vical spine surgery in approximately 3 weeks. Patient denies fever. Denies bowel or bladder incontinence. - Related Data Home Medications Medication Instructions Recorded Confirmed Gabapentin [Neurontin] 800 mg PO TID 06/25/13 07/25/21 Ibuprofen [Motrin] 800 mg PO TID 06/25/13 07/25/21 PARoxetine HCL [Paxil] 40 mg PO DAILY 06/25/13 07/25/21 Hydrocodone/Acetaminophen 1 tab PO Q6H PRN 09/08/13 07/25/21 [Hydrocodone/Acetaminophen 10-325] Levothyroxine Sodium [Synthroid] 25 mcg PO DAILY 10/08/16 07/25/21 methocarbamoL [Robaxin-750] 750 mg PO Q6H 10/08/16 07/25/21 Digoxin [Lanoxin] 125 mcg PO DAILY 02/12/17 07/25/21 Fenofibrate Nanocrystallized 145 mg PO HS 08/21/18 07/25/21 [Fenofibrate] Metoprolol Succinate [Toprol XL] 25 mg PO HS 08/21/18 07/25/21 fentaNYL 50MCG/HR PATCH [Duragesic 50 mcg TRANSDERM Q72H 08/21/18 07/25/21 50MCG/HR] Zolpidem [Ambien] 5 mg PO HS PRN 12/30/19 07/25/21 Amitriptyline HCl 50 mg PO HS 07/13/21 07/25/21 Albuterol Nebulized [Ventolin 2.5 mg INHALATION RT-Q6H PRN 07/25/21 07/25/21 Nebulized] Metoclopramide [Reglan] 10 mg PO HS 07/25/21 07/25/21 Pravastatin Sodium [Pravachol] 20 mg PO DAILY 07/25/21 07/25/21 SUMAtriptan succinate [Imitrex] 100 mg PO DAILY PRN 07/25/21 07/25/21 Previous Rx's Medication Instructions Recorded methylPREDNISolone Dose Pack 4 mg PO DIRECTED #21 packet 07/25/21 [Medrol Dose Pack] Allergies Allergy/AdvReac Type Severity Reaction Status Date / Time shellfish derived [Shellfish] Allergy Anaphylaxis Verified 07/25/21 12:54 Review of Systems ROS Statement: Those systems with pertinent positive or pertinent negative responses have been documented in the HPI. ROS Other: All systems not noted in ROS Statement are negative. Past Medical History Past Medical History: Atrial Fibrillation, Chest Pain / Angina, Deep Vein Thrombosis (DVT), Fibromyalgia, Musculoskeletal Disorder, Osteoarthritis (OA), Respiratory Disorder, Supraventricular Tachycardia (SVT), Syncope Additional Past Medical History / Comment(s): chronic bronchitis. chronic back pain ddd,herniated disc ,migarines, hx. kidney stones, permanent wheeze, "born with heart defect. peripheral neuropathy. sharp shooting pain on left side with n/v History of Any Multi-Drug Resistant Organisms: None Reported Past Surgical History: Back Surgery, Cardiac Ablation, Cholecystectomy, Orthopedic Surgery Additional Past Surgical History / Comment(s): 14 back surgeries, geo knee arthroscopy, PAIN CLINIC PROCEDURES, egd Past Anesthesia/Blood Transfusion Reactions: No Reported Reaction Past Psychological History: Depression Smoking Status: Never smoker Past Alcohol Use History: None Reported Past Drug Use History: None Reported - Past Family History Mother Family Medical History: No Reported History Brother(s) Family Medical History: Cancer Additional Family Medical History / Comment(s): both brothers when they reached age 39. one from brain cancer and the other from complications from a congential heart problem. Father Family Medical History: Diabetes Mellitus Additional Family Medical History / Comment(s): pt's mother has hypertension, kidney stones, endometriosis General Exam Limitations: no limitations General appearance: alert, in no apparent distress Head exam: Present: atraumatic, normocephalic Eye exam: Present: normal appearance, PERRL ENT exam: Present: normal exam Neck exam: Present: normal inspection. Absent: tenderness, meningismus Respiratory exam: Present: normal lung sounds bilaterally. Absent: respiratory distress, wheezes Cardiovascular Exam: Present: regular rate, normal rhythm GI/Abdominal exam: Present: soft. Absent: distended, tenderness, guarding Extremities exam: Present: normal inspection, normal capillary refill Back exam: Present: paraspinal tenderness, vertebral tenderness (Thoracic and lumbar) Neurological exam: Present: alert, oriented X3, CN II-XII intact. Absent: motor sensory deficit Psychiatric exam: Present: normal affect, normal mood Skin exam: Present: warm, dry, intact. Absent: cyanosis, diaphoretic Course Vital Signs 07/25/21 11:07 Temperature 98.1 F Pulse Rate 83 Respiratory 18 Rate Blood Pressure 135/78 O2 Sat by Pulse 97 Oximetry Medical Decision Making - Medical Decision Making 51-year-old female with acute on chronic low back pain, had did have a fall. X- rays performed of the thoracic and lumbar spine which is negative For acute fracture no acute findings. She has some radicular symptoms but no red flag symptoms. She has follow-up with her neurologist on Sunday. She will be prescribed a Medrol Dosepak. Return parameters were discussed. Disposition Clinical Impression: Chronic back pain Disposition: HOME SELF-CARE Condition: Fair Instructions (If sedation given, give patient instructions): Chronic Pain (ED), Lumbar Radiculopathy (ED) Prescriptions: methylPREDNISolone Dose Pack [Medrol Dose Pack] 4 mg PO DIRECTED #21 packet Is patient prescribed a controlled substance at d/c from ED?: No Referrals: Andry Luna DO [Primary Care Provider] - 1-2 days January Gamez MD [Medical Doctor] - 1-2 days Time of Disposition: 13:09
--- NOTE | 2021-07-25 12:41 | XR ---
Thoracic spine HISTORY: Trauma and pain 3 views of the thoracic spine, correlation prior exam 03/21/2017 There is multilevel spondylosis. Thoracic vertebral bodies show preserved height and alignment. Degen erative disc changes are noted in the cervical spine. IMPRESSION: No fracture or subluxation.
--- NOTE | 2021-07-25 12:43 | XR ---
Lumbar spine HISTORY: Trauma and pain 3 views the lumbar spine correlated prior exam 08/06/2017 Dextroscoliosis is again seen and is stable. There is a rotatory component. Lumbar vertebral bodies s how stable height and alignment. Loss of disc height at the intervertebral levels especially L3-4, L4 -5, L5-S1 noted, there is associated vacuum phenomenon. There is associated spondylosis. Sclerosis in the posterior elements is consistent with facet arthropathy. Surgical clips present right upper quad rant. IMPRESSION: No acute fracture or subluxation. Scoliosis, degenerative disc disease and facet arthropa thy.
[2021-07-25 14:03] VITALS: BP 119/68; PULSE 75; RESP 17
== END 2021-07-25 14:03 | disposition home or self-care (01) ==
LOC: EC 10:21
DX: G89.29 Other chronic pain (principal); M54.50 Low back pain, unspecified; M54.6 Pain in thoracic spine; I48.91 Unspecified atrial fibrillation; M19.90 Unspecified osteoarthritis, unspecified site; M79.7 Fibromyalgia; G62.9 Polyneuropathy, unspecified; F32.A Depression, unspecified; Z79.890 Hormone replacement therapy; Z79.899 Other long term (current) drug therapy; W19.XXXA Unspecified fall, initial encounter
CPT/HCPCS: 72070; 72100; 99284; 96372 ×2; J1100; J1170

== ENCOUNTER → 2021-08-05 | Outpatient (CLI) | payer OTHER ==
--- NOTE | 2021-08-06 10:39 | XR ---
EXAMINATION TYPE: XR chest 2V DATE OF EXAM: 08/05/2021 5:26 PM COMPARISON: Chest radiographs from 01/07/2019. TECHNIQUE: XR chest 2V Frontal and lateral views of the chest. CLINICAL INDICATION:Female, 51 years old with history of M48.02 SPINAL STENOSIS, CERVICAL REGION; FINDINGS: Lungs/Pleura: There is no evidence of pleural effusion, focal consolidation, or pneumothorax. Pulmonary vascularity: Unremarkable. Heart/mediastinum: Cardiomediastinal silhouette is unremarkable. Musculoskeletal: No acute osseous pathology. IMPRESSION: No acute cardiopulmonary disease/process.
== END | disposition home or self-care (01) ==
LOC: RADXRMAIN 17:13
PROVIDERS: ATTEND Neurological Surgery
DX: M48.02 Spinal stenosis, cervical region (principal)
CPT/HCPCS: 71046

== ENCOUNTER → 2024-05-29 | Outpatient (CLI) | payer OTHER ==
--- NOTE | 2024-05-29 15:50 | CT ---
EXAMINATION TYPE: CT abdomen pelvis wo con DATE OF EXAM: 05/29/2024 COMPARISON: 12/30/2019 CLINICAL INDICATION: Female, 54 years old with history of R10.9 UNSPE ABDOMINAL PAIN; PHH, Rt side fl ank pain. Hx of renal stones. TECHNIQUE: CT scan of the abdomen and pelvis is performed without oral or IV contrast. CT DLP: [address] CTDI: mGy Automated exposure control for dose reduction was used. FINDINGS: Within the limitations of a non-contrast study, the following observations are made. The lungs are clear. There is surgical absence of the gallbladder. There is no biliary ductal dilatation. There is no organomegaly of the liver, pancreas, spleen or adrenal glands. There has been interval development of a nonobstructing 6.3 mm left renal calculus. There are no righ t renal calcifications. There is no hydronephrosis. The caliber of the abdominal aorta is normal and there is no retroperitoneal adenopathy or hemorrhage . The bowel loops are normal in caliber is no evidence of obstruction. No inflammatory changes are iden tified in the mesentery and there is no free intraperitoneal air or fluid. There is no pelvic mass, free fluid, abscess or adenopathy. The osseous structures and soft tissues are unremarkable. IMPRESSION: New 6.3 mm nonobstructing left renal calculus. No other significant abnormality seen. [facility], , 05/29/2024 3:47 PM
== END | disposition home or self-care (01) ==
LOC: RADCTMAIN 15:24
PROVIDERS: ATTEND Family Medicine
DX: N20.0 Calculus of kidney (principal)
CPT/HCPCS: 74176

== ENCOUNTER → 2024-08-05 | Outpatient (CLI) | payer OTHER ==
[2024-08-05 18:34] LABS: Basophils # (A) 0.04 X 10*3/uL (0.00-0.10); Basophils % (A) 0.6 %; Eosinophils # (A) 0.11 X 10*3/uL (0.04-0.35); Eosinophils % (A) 1.8 %; HCT 32.4 % (37.2-46.3); HGB 10.1 g/dL (12.0-15.0); Immature Grans, Automated 0.20 %; Lymphocytes # (A) 2.04 X 10*3/uL (0.90-5.00); Lymphocytes % (A) 32.6 %; MCH 29.7 pg (27.0-32.0); MCHC 31.2 g/dL (32.0-37.0); MCV 95.3 FL (80.0-97.0); Monocytes # (A) 0.38 X 10*3/uL (0.20-1.00); Monocytes % (A) 6.1 %; NRBC Per 100 WBC 0 X 10*3/uL (0.00-0.01); Neutrophils # (A) 3.67 X 10*3/uL (1.80-7.70); Neutrophils % (A) 58.7 %; Platelet Count 333 X 10*3/uL (140-440); RBC 3.40 X 10*6/uL (4.10-5.20); RDW 12.7 % (11.5-14.5); WBC 6.25 X 10*3/uL (4.50-10.00)
[2024-08-05 19:10] LABS: Anion Gap 11.90 mmol/L (4.00-12.00); BUN/Creat Ratio 12.88 Ratio (12.00-20.00); Blood Urea Nitrogen 10.3 mg/dL (9.0-27.0); Calcium 9.9 mg/dL (8.7-10.3); Carbon Dioxide 25.1 mmol/L (21.6-31.8); Chloride 105 mmol/L (96-109); Glucose 92 mg/dL (70-110); Potassium 4.9 mmol/L (3.5-5.5); Sodium 142 mmol/L (135-145)
[2024-08-05 19:52] LABS: Bacteria,Urine None Seen (None Seen); Bilirubin,Urine Small (Negative); Blood,Urine Negative (Negative); Calcium Oxalate Crystals,Urine Present (None Seen); Color,Urine Dark Yellow (Yellow); Ketones,Urine Negative (Negative); Nitrite,Urine Negative (Negative); PH, Urine 5.5; Specific Gravity,Urine 1.031 (1.001-1.030); Urobilinogen,Urine 1.0
== END | disposition home or self-care (01) ==
LOC: LABWHC1 14:56
PROVIDERS: ATTEND Urology
DX: Z01.818 Encounter for other preprocedural examination (principal); N20.0 Calculus of kidney
CPT/HCPCS: 36415; 80048; 81001; 85025; 87086; 93005

== ENCOUNTER → 2024-08-07 | Outpatient (CLI) | payer OTHER ==
--- NOTE | 2024-08-08 08:30 | XR ---
EXAMINATION TYPE: XR KUB DATE OF EXAM: 08/07/2024 4:00 PM COMPARISON: 12/01/2011. CLINICAL INDICATION: Female, 54 years old with history of N20.1 CALCULUS OF URETER; [facility] TECHNIQUE: One radiographic view of the abdomen was obtained. FINDINGS: The bowel gas pattern is nonspecific without dilated loops of small or large bowel. . Fecal material and gas are demonstrated throughout the colon and rectum. There is no evidence for organome elke or pneumoperitoneum. Degeneration changes of the spine. No acute osseous process. No abnormal calcifications are present. Right upper quadrant cholecystectomy clips. Peripelvic renal calculi comp atible with phleboliths. IMPRESSION: Nonspecific bowel gas pattern without radiographic evidence for acute process. [facility], , 08/08/2024 8:28 AM
== END | disposition home or self-care (01) ==
LOC: RADXRMAIN 15:38
PROVIDERS: ATTEND Urology
DX: N20.1 Calculus of ureter (principal)
CPT/HCPCS: 74018